=== PATIENT | female | born 1960 | race Caucasian/White ===

== ENCOUNTER 2022-03-10 12:43 | Emergency (ER) | payer MEDICARE, SELFPAY ==
[2022-03-10 13:06] VITALS: BP 83/59; PULSE 102; RESP 17; TEMP 36.5; O2SAT 100; BMI 27.3
--- NOTE | 2022-03-10 13:21 | XRR_ITS ---
PROCEDURE INFORMATION: Exam: XR Left Hip Exam date and time: 03/10/2022 1:32 PM Age: 62 years old Clinical indication: Fall with blunt trauma involving the left hip. History of thyroid cancer. TECHNIQUE: Imaging protocol: XR Left hip. Views: 2 or 3 views hip with pelvis when performed. COMPARISON: No relevant prior studies available. FINDINGS: Bones/joints: No fracture, dislocation or subluxation. No periosteal reaction or supsicious bone lesion. Very mild osteoarthritis involving the left hip. Soft tissues: Soft tissue swelling noted lateral to the left hip which could reflect hematoma or edema. Intraperitoneal space: A surgical clip is seen in the right pelvis. XR/XR hip LT 2-3V wo/w pel* [id number] IMPRESSION: 1. Soft tissue swelling noted lateral to the left hip which could reflect hematoma or edema. 2. No acute fracture is seen. 3. Very mild osteoarthritis.
--- NOTE | 2022-03-10 13:46 | W.ED.FALL ---
Documented by User: LORENE Lennon 03/10/22 16:46 HPI - Fall General: Chief Complaint: Fall Stated Complaint: Fell, left Hip injury Time Seen by Provider: 03/10/22 13:21 Source: patient and family Mode of arrival: wheelchair Limitations: no limitations History of Present Illness: Patient is a nice 62-year-old female presents to ED today along with her daughter for evaluation of a left hip injury. Patient tells me earlier today she was getting into a pair of pants when she accidentally tripped and fell and landed onto her left hip. States she immediately began noticing bruising and swelling to the lateral aspect of the hip. Patient has remained ambulatory on the extremity without difficulty. She denies any other injury sustained during her fall. Patient is not on anticoagulation. MD complaint: fall Onset (ago): hour(s) Fall from: standing Fall witnessed: no Place fall occurred: home Loss of consciousness: None Prolonged down time: no Symptoms prior to fall: none Context: tripped/slipped Location of injury - extremities: Left: thigh Associated symptoms-after fall: Reports no associated symptoms; Denies abdominal pain, chest pain, headache(s) or neck pain Review of Systems Const: Denies: fever(s), chills, body aches, fatigue or malaise Card: Denies: chest pain Resp: Denies: dyspnea GI: Denies: abdominal pain : Denies: flank pain Musc: Reports: joint pain (L hip) and joint swelling (L hip); Denies: neck pain, back pain, extremity pain or extremity swelling Neuro: Denies: headache(s), numbness in extremities, weakness in extremities or sensory changes Physical Exam Const: COMMON NORMALS: no acute distress, average body habitus, patient oriented x3, no limitations, alert and well nourished GENERAL APPEARANCE: cooperative ORIENTATION/CONSCIOUSNESS: Yes awake, Yes oriented to person, Yes oriented to place and Yes oriented to time HENMT: COMMON NORMALS: normocephalic and atraumatic HEAD & SCALP: normal to inspection, normocephalic and atraumatic FACE & SINUS: normal facial exam Neck/C-Spine: COMMON NORMALS: full ROM CERVICAL SPINE: No pain with cervical ROM, No Cervical spine tenderness, No step off deformity and No Paracervical muscle tenderness Chest: COMMONS NORMALS: normal inspection of the chest and normal palpation of entire chest wall Resp: COMMON NORMALS: normal respiratory effort and clear to auscultation bilaterally AUSCULTATION: clear to auscultation bilaterally Cardio: COMMON NORMALS: regular rate and regular rhythm RATE: regular rate RHYTHM: regular rhythm GI: COMMON NORMALS: non-tender INSPECTION: No abdominal wall ecchymosis Back/Pelvis: COMMON NORMALS: thoracic and lumbar spine normal to inspection, no thoracic nor lumbar tenderness and thoraco-lumbar ROM normal Extremity: COMMON NORMALS: full ROM, capillary refill normal, no calf tenderness and no pedal edema GENERAL: Yes normal exam except as noted LEFT LOWER EXTREMITY: Yes hip joint (full ROM of hip joint; lateral hematoma present) Left hip: Yes neurovascular exam (normal) EXTREMITY IMAGE (FRONT): 1. large lateral hematoma present Neuro: DOMINGO COMA SCALE: document GCS findings [place] coma scale eye opening: Spontaneous [place] coma scale verbal response: Orientated [place] coma scale motor response: Obey commands Domingo coma scale total score: 15 COMMON NORMALS: patient oriented x3, moves all extremities, no focal motor deficits, no sensory deficits noted and gait normal SENSORIUM/ORIENTATION: Yes alert, Yes oriented to person, Yes oriented to place and Yes oriented to time Skin: NARRATIVE SKIN EXAM: see extremity for pertinent skin findings Course Vital Signs: Vital signs: Vital Signs Temperature 97.7 F 03/10/22 13:06 Pulse Rate 108 H 03/10/22 15:19 Respiratory Rate 16 03/10/22 15:19 Blood Pressure 101/64 03/10/22 16:19 Pulse Oximetry 98 03/10/22 15:19 MDM - Fall Medical Decision Making Patient is a 62-year-old female here following a trip and fall onto her left hip. XR of the hip is negative for acute fracture. She does have a large lateral hip/thigh hematoma present. She was hypotensive upon arrival. Patient states sometimes her blood pressure can run low. He is not complaining of feeling lightheaded or dizzy or presyncopal. Upon my reassessment blood pressure is 100s/60s which she states is about normal for her. H/H normal on her CBC. She was given 1L fluids. At this time recommend ice, elevation and compression at home. Strict return to ED precautions given regarding lightheadedness, dizziness, presyncopal/syncopal episodes. Patient and her daughter verbalized understanding. Lab Data : 03/10/22 14:53 03/10/22 14:53 Radiology Impressions Hip/Pelvis X-Ray 03/10/22 13:21 IMPRESSION: 1. Soft tissue swelling noted lateral to the left hip which could reflect hematoma or edema. 2. No acute fracture is seen. 3. Very mild osteoarthritis. Laboratory Results WBC 12.7 10^3/uL (4.0-10.0) H 03/10/22 14:53 RBC 4.33 10^6/uL (4.1-5.3) 03/10/22 14:53 Hgb 12.9 g/dL (11.5-15.3) 03/10/22 14:53 Hct 39.2 % (37.0-47.0) 03/10/22 14:53 MCV 90.5 fl (81-99) 03/10/22 14:53 MCH 29.8 pg (28.0-34.0) 03/10/22 14:53 MCHC 32.9 g/dL (30.0-36.0) 03/10/22 14:53 RDW 12.7 % (12.1-15.1) 03/10/22 14:53 Plt Count 244 10^3/cmm (130-400) 03/10/22 14:53 MPV 10.5 fL (7.4-10.4) H 03/10/22 14:53 Neut % (Auto) 70.4 % 03/10/22 14:53 Lymph % (Auto) 18.5 % 03/10/22 14:53 [place] % (Auto) 8.0 % 03/10/22 14:53 Eos % (Auto) 1.5 % 03/10/22 14:53 Baso % (Auto) 0.9 % 03/10/22 14:53 Neut # (Auto) 8.97 10^3/uL (1.8-7.7) H 03/10/22 14:53 Lymph # (Auto) 2.4 10^3/uL (0.8-4.8) 03/10/22 14:53 [place] # (Auto) 1.0 10^3/uL (0.2-0.9) H 03/10/22 14:53 Eos # (Auto) 0.2 10^3/uL (0.0-0.8) 03/10/22 14:53 Baso # (Auto) 0.1 10^3/uL (0.0-0.1) 03/10/22 14:53 Nucleated RBC % (auto) 0 % 03/10/22 14:53 Nucleated RBCs # 0.0 /100WBC 03/10/22 14:53 Sodium 131 mmol/L (136-145) L 03/10/22 14:53 Potassium 4.4 mmol/L (3.5-5.1) 03/10/22 14:53 Chloride 100 mmol/L (98-107) 03/10/22 14:53 Carbon Dioxide 22 mmol/L (22-29) 03/10/22 14:53 Anion Gap 13.4 (5-19) 03/10/22 14:53 BUN 14 mg/dL (8-23) 03/10/22 14:53 Creatinine 1.1 mg/dL (0.5-0.9) H 03/10/22 14:53 GFR Calculation 50.0 mL/min (90-130) L 03/10/22 14:53 Glucose 95 mg/dL (65-115) 03/10/22 14:53 Calculated Osmolality 272 mOsm/kg (285-295) L 03/10/22 14:53 Calcium 8.6 mg/dL (8.5-10.5) 03/10/22 14:53 Total Bilirubin 0.3 mg/dL (0.15-1.2) 03/10/22 14:53 AST 22 U/L (0-32) 03/10/22 14:53 ALT 19 U/L (0-33) 03/10/22 14:53 Alkaline Phosphatase 85 IU/L (35-105) 03/10/22 14:53 Total Protein 6.3 g/dL (6.6-8.7) L 03/10/22 14:53 Albumin 3.6 g/dL (3.5-5.2) 03/10/22 14:53 Globulin 2.7 g/dL (1.3-4.6) 03/10/22 14:53 Discharge Plan Discharge Patient Disposition: Home Clinical Impression: Traumatic hematoma of left thigh Qualifiers: Encounter type: initial encounter Qualified Code(s): S70.12XA - Contusion of left thigh, initial encounter Condition: Stable Prescriptions: New tramadol 50 mg tablet 50 mg PO Q6H PRN (Reason: pain) Qty: 10 0RF No Action hydrocodone-acetaminophen 5-325 mg tablet 1 tab PO Q8H PRN (Reason: pain) Qty: 7 0RF Discharge Orders: Discharge ED (Routine); Ordered 03/10/22 Ordered By: Evi Logan Patient Instructions: Contusion in Adults (ED), Hematoma (ED) Activity Restrictions/Additional Instructions: As we discussed you may apply ice to the hematoma for 15-20 minutes every other hour. You need to return to the emergency department for worsening swelling or bruising, lightheadedness, dizziness, passing out episodes, or any other concerns you may have. Coding Level of Care Code ED Historical Archeologist for Chg Fwd Exam Comprehensive Documented by User: Armando Alonso DO 03/15/22 09:55 HPI - Fall General: Chief Complaint: Fall Stated Complaint: Fell, left Hip injury Time Seen by Provider: 03/10/22 13:21 Physical Exam Extremity: EXTREMITY IMAGE (FRONT): 1. large lateral hematoma present Neuro: DOMINGO COMA SCALE: document GCS findings [place] coma scale total score: 15 Course Vital Signs: Vital signs: Vital Signs Temperature 97.7 F 03/10/22 13:06 Pulse Rate 108 H 03/10/22 15:19 Respiratory Rate 16 03/10/22 15:19 Blood Pressure 101/64 03/10/22 16:19 Pulse Oximetry 98 03/10/22 15:19 MDM - Fall Medical Decision Making Patient is a 62-year-old female here following a trip and fall onto her left hip. XR of the hip is negative for acute fracture. She does have a large lateral hip/thigh hematoma present. She was hypotensive upon arrival. Patient states sometimes her blood pressure can run low. He is not complaining of feeling lightheaded or dizzy or presyncopal. Upon my reassessment blood pressure is 100s/60s which she states is about normal for her. H/H normal on her CBC. She was given 1L fluids. At this time recommend ice, elevation and compression at home. Strict return to ED pr ecautions given regarding lightheadedness, dizziness, presyncopal/syncopal episodes. Patient and her daughter verbalized understanding. Chart reviewed and patient discussed with midlevel. Agree with assessment and plan. Lab Data : 03/10/22 14:53 03/10/22 14:53 Radiology Impressions Hip/Pelvis X-Ray 03/10/22 13:21 IMPRESSION: 1. Soft tissue swelling noted lateral to the left hip which could reflect hematoma or edema. 2. No acute fracture is seen. 3. Very mild osteoarthritis. Laboratory Results WBC 12.7 10^3/uL (4.0-10.0) H 03/10/22 14:53 RBC 4.33 10^6/uL (4.1-5.3) 03/10/22 14:53 Hgb 12.9 g/dL (11.5-15.3) 03/10/22 14:53 Hct 39.2 % (37.0-47.0) 03/10/22 14:53 MCV 90.5 fl (81-99) 03/10/22 14:53 MCH 29.8 pg (28.0-34.0) 03/10/22 14:53 MCHC 32.9 g/dL (30.0-36.0) 03/10/22 14:53 RDW 12.7 % (12.1-15.1) 03/10/22 14:53 Plt Count 244 10^3/cmm (130-400) 03/10/22 14:53 MPV 10.5 fL (7.4-10.4) H 03/10/22 14:53 Neut % (Auto) 70.4 % 03/10/22 14:53 Lymph % (Auto) 18.5 % 03/10/22 14:53 [place] % (Auto) 8.0 % 03/10/22 14:53 Eos % (Auto) 1.5 % 03/10/22 14:53 Baso % (Auto) 0.9 % 03/10/22 14:53 Neut # (Auto) 8.97 10^3/uL (1.8-7.7) H 03/10/22 14:53 Lymph # (Auto) 2.4 10^3/uL (0.8-4.8) 03/10/22 14:53 [place] # (Auto) 1.0 10^3/uL (0.2-0.9) H 03/10/22 14:53 Eos # (Auto) 0.2 10^3/uL (0.0-0.8) 03/10/22 14:53 Baso # (Auto) 0.1 10^3/uL (0.0-0.1) 03/10/22 14:53 Nucleated RBC % (auto) 0 % 03/10/22 14:53 Nucleated RBCs # 0.0 /100WBC 03/10/22 14:53 Sodium 131 mmol/L (136-145) L 03/10/22 14:53 Potassium 4.4 mmol/L (3.5-5.1) 03/10/22 14:53 Chloride 100 mmol/L (98-107) 03/10/22 14:53 Carbon Dioxide 22 mmol/L (22-29) 03/10/22 14:53 Anion Gap 13.4 (5-19) 03/10/22 14:53 BUN 14 mg/dL (8-23) 03/10/22 14:53 Creatinine 1.1 mg/dL (0.5-0.9) H 03/10/22 14:53 GFR Calculation 50.0 mL/min (90-130) L 03/10/22 14:53 Glucose 95 mg/dL (65-115) 03/10/22 14:53 Calculated Osmolality 272 mOsm/kg (285-295) L 03/10/22 14:53 Calcium 8.6 mg/dL (8.5-10.5) 03/10/22 14:53 Total Bilirubin 0.3 mg/dL (0.15-1.2) 03/10/22 14:53 AST 22 U/L (0-32) 03/10/22 14:53 ALT 19 U/L (0-33) 03/10/22 14:53 Alkaline Phosphatase 85 IU/L (35-105) 03/10/22 14:53 Total Protein 6.3 g/dL (6.6-8.7) L 03/10/22 14:53 Albumin 3.6 g/dL (3.5-5.2) 03/10/22 14:53 Globulin 2.7 g/dL (1.3-4.6) 03/10/22 14:53 Discharge Plan Discharge Patient Disposition: Home Clinical Impression: Traumatic hematoma of left thigh Qualifiers: Encounter type: initial encounter Qualified Code(s): S70.12XA - Contusion of left thigh, initial encounter Condition: Stable Prescriptions: New tramadol 50 mg tablet 50 mg PO Q6H PRN (Reason: pain) Qty: 10 0RF No Action hydrocodone-acetaminophen 5-325 mg tablet 1 tab PO Q8H PRN (Reason: pain) Qty: 7 0RF Discharge Orders: Discharge ED (Routine); Ordered 03/10/22 Ordered By: Evi Logan Patient Instructions: Contusion in Adults (ED), Hematoma (ED) Activity Restrictions/Additional Instructions: As we discussed you may apply ice to the hematoma for 15-20 minutes every other hour. You need to return to the emergency department for worsening swelling or bruising, lightheadedness, dizziness, passing out episodes, or any other concerns you may have. Coding Level of Care Code ED Historical Archeologist for Supriya Fwd Exam Comprehensive
[2022-03-10 14:28] VITALS: BP 79/55; PULSE 114; RESP 16; O2SAT 98
[2022-03-10] MEDS: sodium chloride 0.9% 1,000 ML 999 ML IV (14:45)
[2022-03-10 15:19] VITALS: BP 85/58; PULSE 108; RESP 16; O2SAT 98
[2022-03-10 15:19] LABS: Basophils # 0.1 10^3/uL (0.0-0.1); Basophils % 0.9 %; Eosinophils # 0.2 10^3/uL (0.0-0.8); Eosinophils % 1.5 %; Hematocrit 39.2 % (37.0-47.0); Hemoglobin 12.9 g/dL (11.5-15.3); Lymphocytes # 2.4 10^3/uL (0.8-4.8); Lymphocytes % 18.5 %; Mean Corpuscular HGB Conc 32.9 g/dL (30.0-36.0); Mean Corpuscular Hemoglobin 29.8 pg (28.0-34.0); Mean Corpuscular Volume 90.5 fl (81-99); Mean Platelet Volume 10.5 fL (7.4-10.4); Neutrophils # 8.97 10^3/uL (1.8-7.7); Neutrophils % 70.4 %; Nucleated Red Blood Cells % 0 %; Platelet Count 244 10^3/cmm (130-400); Red Blood Count 4.33 10^6/uL (4.1-5.3); Red Cell Distribution Width 12.7 % (12.1-15.1); White Blood Count 12.7 10^3/uL (4.0-10.0)
[2022-03-10 15:30] LABS: Alanine Aminotransferase 19 U/L (0-33); Albumin Level 3.6 g/dL (3.5-5.2); Alkaline Phosphatase 85 IU/L (35-105); Anion Gap 13.4 (5-19); Aspartate Amino Transferase 22 U/L (0-32); Blood Urea Nitrogen 14 mg/dL (8-23); Calcium 8.6 mg/dL (8.5-10.5); Carbon Dioxide 22 mmol/L (22-29); Chloride 100 mmol/L (98-107); Globulin 2.7 g/dL (1.3-4.6); Glucose 95 mg/dL (65-115); Osmolality Calculated 272 mOsm/kg (285-295); Potassium 4.4 mmol/L (3.5-5.1); Sodium 131 mmol/L (136-145); Total Bilirubin 0.3 mg/dL (0.15-1.2); Total Protein 6.3 g/dL (6.6-8.7)
[2022-03-10 16:19] VITALS: BP 101/64
== END 2022-03-10 16:27 | disposition home or self-care (01) ==
PROVIDERS: Emergency Provider Physician Assistant
DX: S70.12XA Contusion of left thigh, initial encounter (principal); W01.0XXA Fall on same level from slipping, tripping and stumbling without subsequent striking against object, initial encounter
CPT/HCPCS: 73502; 80053; 85025; 96360; 99283; J7030

== ENCOUNTER 2022-03-11 21:15 | Emergency (ER) | payer MEDICARE, SELFPAY ==
--- NOTE | 2022-03-11 21:38 | XRR_ITS ---
PROCEDURE INFORMATION: Exam: XR Left Hip Exam date and time: 03/11/2022 10:27 PM Age: 62 years old Clinical indication: Hip pain; Left hip; Additional info: Injury TECHNIQUE: Imaging protocol: XR Left hip. Views: 2 or 3 views hip with pelvis when performed. COMPARISON: CR XR hip LT 2-3V wo/w pel* [id number] 03/10/2022 1:32 PM FINDINGS: Bones/joints: Mild left hip osteoarthritis. Soft tissues: Soft tissue swelling over the lateral aspect of the left hip again seen. XR/XR hip LT 2-3V wo/w pel* [id number] IMPRESSION: 1. No acute findings. 2. Mild left hip osteoarthritis. 3. Soft tissue swelling over the lateral aspect of the left hip again seen.
[2022-03-11 22:43] VITALS: BP 115/70; PULSE 95; RESP 18; TEMP 36.8; O2SAT 99
--- NOTE | 2022-03-11 23:53 | ED_ITS ---
HPI - Fall General: Chief Complaint: Fall Stated Complaint: L hip pain Time Seen by Provider: 03/11/22 23:52 History of Present Illness: 62-year-old female comes in today for bruise to the left hip. Patient reports increased pain and difficulty with walking with the left hip. Patient was evaluated yesterday and no fracture was noted on exam. Patient is polypharmacy. Patient shows left with multiple medications. Patient does have a hip history of hypertension, mental health disorder, GERD. Associated symptoms-after fall: Denies chest pain Review of Systems General: Reports: 10 or more systems reviewed and unremarkable except in HPI and below Const: Denies: fever(s) Card: Denies: chest pain Resp: Denies: dyspnea Musc: Reports: extremity pain Skin/Breast: Denies: rash Physical Exam Const: COMMON NORMALS: alert HENMT: COMMON NORMALS: normocephalic HEAD & SCALP: normocephalic Neck/C-Spine: COMMON NORMALS: full ROM Resp: COMMON NORMALS: normal respiratory effort Cardio: COMMON NORMALS: regular rate RATE: regular rate Back/Pelvis: THORACIC SPINE/UPPER BACK: No thoracic spinal tenderness LUMBAR SPINE/LOWER BACK: No lumbar spinal tenderness Extremity: LEFT LOWER EXTREMITY: Yes hip joint (Large hematoma to the lateral hip.) Neuro: SENSORIUM/ORIENTATION: Yes alert Course Vital Signs: Vital signs: Vital Signs Temperature 98.3 F 03/11/22 22:43 Pulse Rate 87 03/12/22 00:15 Respiratory Rate 20 H 03/12/22 00:15 Blood Pressure 107/63 03/12/22 00:15 Pulse Oximetry 97 03/12/22 00:15 MDM - Fall Medical Decision Making Patient comes in for continued pain to the left hip. On exam patient has good range of motion of the hip. Patient does have a large hematoma to the left hip. Tenderness is noted on palpation. Distal pulses sensation patient is intact. Vital signs are normal. Differential diagnosis includes but not limited to fracture, sprain, contusion. X-ray of the hip was negative for any fracture or dislocation. Reviewed exam with patient with recommendations for treatment and follow-up. They reported understanding Lab Data Radiology Impressions Hip/Pelvis X-Ray 03/11/22 21:38 IMPRESSION: 1. No acute findings. 2. Mild left hip osteoarthritis. 3. Soft tissue swelling over the lateral aspect of the left hip again seen. Discharge Plan Discharge Patient Disposition: Home Clinical Impression: Traumatic hematoma of left thigh Qualifiers: Encounter type: initial encounter Qualified Code(s): S70.12XA - Contusion of left thigh, initial encounter Condition: Stable Prescriptions: New hydrocodone-acetaminophen 5-325 mg tablet 1 tab PO Q8H PRN (Reason: pain) Qty: 7 0RF No Action tramadol 50 mg tablet 50 mg PO Q6H PRN (Reason: pain) Qty: 10 0RF Discharge Orders: Discharge ED (Routine); Ordered 03/12/22 Ordered By: Jeramie Nguyễn Discharge Diet: Usual diet Discharge Activity: Increase activity as tolerated Patient Instructions: Contusion in Adults (ED) Activity Restrictions/Additional Instructions: Activity as tolerated. Use ice or heat to the area for comfort. Drink plenty of water with medication. Use acetaminophen and diclofenac for pain. Use hydrocodone for severe pain. Follow-up with primary care for further instruction. Return to ER for new concerns. Coding Level of Care Code ED Social Worker Clinical for Supriya Durand
[2022-03-12] MEDS: HYDROcodone-acetaminophen 5-325 mg Tablet 1 TAB PO (00:12)
[2022-03-12 00:15] VITALS: BP 107/63; PULSE 87; RESP 20; O2SAT 97
== END 2022-03-12 00:17 | disposition home or self-care (01) ==
PROVIDERS: Emergency Provider Nurse Practitioner Family
DX: S70.02XA Contusion of left hip, initial encounter (principal); W19.XXXA Unspecified fall, initial encounter; M25.552 Pain in left hip
CPT/HCPCS: 73502; 99283

== ENCOUNTER 2022-12-01 10:16 | Emergency (ER) | payer MEDICARE, SELFPAY ==
[2022-12-01 10:18] VITALS: BP 160/85; PULSE 64; RESP 18; TEMP 37.1; O2SAT 97; BMI 26.6
--- NOTE | 2022-12-01 10:38 | W.ED.ABDPA2 ---
HPI - Abdominal Pain General: Chief Complaint: Abdominal Pain Stated Complaint: stomach pain Time Seen by Provider: 12/01/22 10:26 History of Present Illness: Patient is a 62-year-old female comes the ED with abdominal pain. Symptoms have been going on now for couple months. Pain is rated an 8 out of 10. It is located in the epigastric region of the stomach. She describes it as a burning type pain. Eating does not worsen the symptoms. She has a history of constipation and has bowel movements every other day. Denies any fevers, chills, vomiting, change in bladder or bowels. Associated Symptoms: Reports nausea; Denies chills, constipation, diarrhea, dysuria, fever(s), hematochezia, hematuria and vomiting Review of Systems Const: Denies: fever(s), chills or fatigue Eyes: Denies: change in vision or eye discomfort ENMT: Denies: throat pain, odynophagia, nasal discharge or nasal congestion Card: Denies: chest pain, palpitations, edema, swelling of feet/ankles, dyspnea on exertion or orthopnea Resp: Denies: dyspnea, productive cough or non-productive cough GI: Reports: abdominal pain (epigastric) and nausea; Denies: vomiting, diarrhea, constipation or hematochezia : Denies: flank pain, dysuria or hematuria Musc: Denies: neck pain, back pain or extremity swelling Skin/Breast: Denies: rash or new lesions Neuro: Denies: headache(s), numbness in extremities or weakness in extremities PFS ED PFSH: Medical History No pertinent family history No pertinent past medical history Physical Exam Const: COMMON NORMALS: no acute distress, patient oriented x3 and alert GENERAL APPEARANCE: cooperative and comfortable HENMT: COMMON NORMALS: normocephalic HEAD & SCALP: normocephalic MOUTH: Normal oral and palatal mucosa present THROAT: posterior oropharynx normal and uvula midline Neck/C-Spine: COMMON NORMALS: supple GENERAL: Yes normal visual inspection Resp: COMMON NORMALS: normal respiratory effort, No retractions, No use of accessory muscles and clear to auscultation bilaterally AUSCULTATION: clear to auscultation bilaterally Cardio: COMMON NORMALS: regular rate, regular rhythm, S1 normal heart sound present, S2 normal heart sound present, No gallops present (Cardio), No clicks present (Cardio), No murmurs present (Cardio) and Peripheral pulses 2+ throughout RATE: regular rate RHYTHM: regular rhythm HEART SOUNDS: S1 normal heart sound present and S2 normal heart sound present PERIPHERAL PULSES: Peripheral pulses 2+ throughout GI: COMMON NORMALS: Normal to inspection, nondistended, normoactive bowel sounds present, Soft to palpation and no masses PALPATION: Yes Soft to palpation and Yes Tenderness to palpation present (GI) (Epigastric) : COMMON NORMALS: Yes no CVA tenderness BLADDER/KIDNEY EXAM: Yes no CVA tenderness Back/Pelvis: COMMON NORMALS: no CVA tenderness Extremity: COMMON NORMALS: normal to inspection Neuro: COMMON NORMALS: patient oriented x3 SENSORIUM/ORIENTATION: Yes alert GAIT: Yes Normal gait present Skin: GENERAL SKIN EXAM: dry skin Course Vital Signs: Vital signs: Vital Signs Temperature 98.7 F 12/01/22 10:18 Pulse Rate 55 L 12/01/22 13:47 Respiratory Rate 16 12/01/22 13:47 Blood Pressure 142/82 12/01/22 12:09 Pulse Oximetry 93 12/01/22 13:47 Oxygen Delivery Me thod 12/01/22 12:09 MDM - Abdominal Pain Medical Decision Making Patient is a 62-year-old female comes the ED with abdominal pain. Symptoms have been going on now for couple months. Pain is rated an 8 out of 10. It is located in the epigastric region of the stomach. She describes it as a burning type pain. Eating does not worsen the symptoms. She has a history of constipation and has bowel movements every other day. Denies any fevers, chills, vomiting, change in bladder or bowels. Vitals are stable. Labs are unremarkable. CT of abdomen pelvis shows no acute findings. Patient was given dose of GI cocktail and her symptoms improved. She was stable for discharge home and diagnosed with gastritis. She was sent home with a prescription for some Carafate and told to continue taking her previously prescribed pantoprazole. Strict return to ED precautions given. Follow-up with PCP within the next 3 to 5 days for reevaluation. Patient understood and agreed with plan. Lab Data I reviewed the patient's lab results. 12/01/22 10:56 12/01/22 10:56 Labs/Radiology: Radiology Impressions Abdomen/Pelvis CT 12/01/22 10:40 IMPRESSION: 1. No GI tract obstruction. 2. Poorly visualized RIGHT portal vein. May be due to phase of IV contrast injection. For further evaluation ultrasound of the RIGHT portal vein can be obtained. The main portal vein is normal. 3. Atherosclerosis aorta. 4. The appendix is not visualized but there are no secondary findings of appendicitis. 5. Prior hysterectomy. 6. No ascites. Laboratory Results WBC 6.4 10^3/uL (4.0-10.0) 12/01/22 10:56 RBC 5.18 10^6/uL (4.1-5.3) 12/01/22 10:56 Hgb 15.0 g/dL (11.5-15.3) 12/01/22 10:56 Hct 45.6 % (37.0-47.0) 12/01/22 10:56 MCV 88.0 fl (81-99) 12/01/22 10:56 MCH 29.0 pg (28.0-34.0) 12/01/22 10:56 MCHC 32.9 g/dL (30.0-36.0) 12/01/22 10:56 RDW 12.7 % (12.1-15.1) 12/01/22 10:56 Plt Count 210 10^3/cmm (130-400) 12/01/22 10:56 MPV 10.8 fL (7.4-10.4) H 12/01/22 10:56 Neut % (Auto) 67.4 % 12/01/22 10:56 Lymph % (Auto) 24.1 % 12/01/22 10:56 [place] % (Auto) 5.6 % 12/01/22 10:56 Eos % (Auto) 1.6 % 12/01/22 10:56 Baso % (Auto) 1.1 % 12/01/22 10:56 Neut # (Auto) 4.35 10^3/uL (1.8-7.7) 12/01/22 10:56 Lymph # (Auto) 1.6 10^3/uL (0.8-4.8) 12/01/22 10:56 [place] # (Auto) 0.4 10^3/uL (0.2-0.9) 12/01/22 10:56 Eos # (Auto) 0.1 10^3/uL (0.0-0.8) 12/01/22 10:56 Baso # (Auto) 0.1 10^3/uL (0.0-0.1) 12/01/22 10:56 Nucleated RBC % (auto) 0 % 12/01/22 10:56 Nucleated RBCs # 0.0 /100WBC 12/01/22 10:56 Sodium 138 mmol/L (136-145) 12/01/22 10:56 Potassium 4.3 mmol/L (3.5-5.1) 12/01/22 10:56 Chloride 102 mmol/L (98-107) 12/01/22 10:56 Carbon Dioxide 28 mmol/L (22-29) 12/01/22 10:56 Anion Gap 12.3 (5-19) 12/01/22 10:56 BUN 10 mg/dL (8-23) 12/01/22 10:56 Creatinine 1.1 mg/dL (0.5-0.9) H 12/01/22 10:56 GFR Calculation 50.0 mL/min (90-130) L 12/01/22 10:56 Glucose 108 mg/dL (65-115) 12/01/22 10:56 Calculated Osmolality 286 mOsm/kg (285-295) 12/01/22 10:56 Calcium 8.7 mg/dL (8.5-10.5) 12/01/22 10:56 Total Bilirubin 0.5 mg/dL (0.15-1.2) 12/01/22 10:56 AST 14 U/L (0-32) 12/01/22 10:56 ALT 10 U/L (0-33) 12/01/22 10:56 Alkaline Phosphatase 80 U/L (35-105) 12/01/22 10:56 Total Protein 6.7 g/dL (6.6-8.7) 12/01/22 10:56 Albumin 4.0 g/dL (3.5-5.2) 12/01/22 10:56 Globulin 2.7 g/dL (1.3-4.6) 12/01/22 10:56 Lipase 36 U/L (13-60) 12/01/22 10:56 Urine Color Light yellow (Yellow) 12/01/22 12:05 Urine Appearance Clear (CLEAR) 12/01/22 12:05 Urine pH 7 (5-7) 12/01/22 12:05 Ur Specific [place] 1.005 (1.005-1.030) 12/01/22 12:05 Urine Protein Neg (Negative) 12/01/22 12:05 Urine Glucose (UA) Norm (Normal) 12/01/22 12:05 Urine Ketones Negative (Negative) 12/01/22 12:05 Urine Blood Neg (Negative) 12/01/22 12:05 Urine Nitrate Negative (Negative) 12/01/22 12:05 Urine Bilirubin Neg (Negative) 12/01/22 12:05 Urine Urobilinogen Neg mg/dL (Negative) 12/01/22 12:05 Ur Leukocyte Esterase Negative (Negative) 12/01/22 12:05 H. pylori IgG Antibody Negative (Negative) 12/01/22 10:56 Discharge Plan Discharge Patient Disposition: Home Clinical Impression: Gastritis Qualifiers: Gastritis type: unspecified gastritis Chronicity: acute Gastritis bleeding: without bleeding Qualified Code(s): K29.00 - Acute gastritis without bleeding Condition: Stable Prescriptions: New Carafate 1 gram tablet 1 g PO Q6H 28 Days Qty: 112 0RF No Action hydrocodone-acetaminophen 5-325 mg tablet 1 tab PO Q8H PRN (Reason: pain) Qty: 7 0RF tramadol 50 mg tablet 50 mg PO Q6H PRN (Reason: pain) Qty: 10 0RF Discharge Orders: Discharge ED (Routine); Ordered 12/01/22 Ordered By: Charles Ryder Discharge Diet: Regular Discharge Activity: Increase activity as tolerated Patient Instructions: Gastritis (ED) Activity Restrictions/Additional Instructions: Follow-up with medical provider as directed in the next 3 to 5 days for reevaluation. Take medications as prescribed. Return to the ER or your medical provider if condition worsens. Please read and understand discharge instructions. Thank you for choosing [facility] for your healthcare needs today. Please realize this is an emergency room and that we are providing you with a medical screening exam and this may not be complete and all inclusive of all the testing and or work up that you may need to determine your ailment or severity of your illness. It is very important that you follow up as instructed or that you return to the Emergency Department should you have concerns or if your condition changes or worsens in any way. Coding Level of Care Code ED Wireless Consultant for Chg Fwd Exam Comprehensive
--- NOTE | 2022-12-01 10:40 | CT_ITS ---
WS: [id number] CT ABDOMEN AND PELVIS WITH CONTRAST HISTORY: epigastric abd pain, nausea TECHNIQUE: Imaging performed of the abdomen and pelvis with IV contrast. Single phase imaging of the abdomen. Coronal and sagittal reformats are submitted. All CT scans at [facility] use at [address] one of these dose optimization techniques: automated exposure control; mA and/or kV adjustment per patient size (includes targeted exams where dose is matched to clinical indication); or iterative re construction. IV CONTRAST: Omnipaque 350; 95 mL IV. Oral contrast: No DLP: 587.84 mGy.cm COMPARISON: None available. Lower thorax: Lung bases are clear. Heart is normal size. Small hiatal hernia. Liver/biliary system: Normal size liver. Poorly visualized RIGHT portal vein. No mass. Gallbladder: Normal. No gallstones or wall thickening. No pericholecystic fluid. Pancreas: Normal size pancreas and pancreatic duct. No adjacent inflammation. Spleen: Normal size spleen. No mass or infarct. Adrenal glands: Mild thickening and hyperplasia of the RIGHT adrenal gland. There may be a very small subcentimeter adenoma on the RIGHT. LEFT is negative. Right kidney: Normal. Left kidney: Normal. Aorta: Mild atherosclerosis with no aneurysm. Lymphadenopathy: None. Free fluid: None. GI tract: Normally distended stomach. No small bowel obstruction. The appendix is not identified. The re are no inflammatory processes in the RIGHT lower quadrant. No wall thickening of the colon. No acu te inflammatory changes. Abdominal wall: Fat containing umbilical hernia. Pelvis: Prior hysterectomy. No free fluid or adenopathy. Urinary bladder is negative. Bones: L1 anterior wedging by 10%. No retropulsion. CT/CT abdomen pelvis w con* [id number] IMPRESSION: 1. No GI tract obstruction. 2. Poorly visualized RIGHT portal vein. May be due to phase of IV contrast inj ection. For further evaluation ultrasound of the RIGHT portal vein can be obtai vlad. The main portal vein is normal. 3. Atherosclerosis aorta. 4. The appendix is not visualized but there are no secondary findings of appen dicitis. 5. Prior hysterectomy. 6. No ascites.
[2022-12-01 10:55] VITALS: BP 132/86; PULSE 62; O2SAT 100
[2022-12-01] MEDS: sodium chloride 0.9% 1,000 ML 999 ML IV (11:05)
[2022-12-01 11:06] VITALS: RESP 19; O2SAT 98
[2022-12-01] MEDS: morphine 4 mg/mL SDV 1 mL IVP (11:06)
[2022-12-01] MEDS: ondansetron 2 mg/ML SDV 2 mL 4 MG IVP (11:06)
[2022-12-01 11:09] LABS: Basophils # 0.1 10^3/uL (0.0-0.1); Basophils % 1.1 %; Eosinophils # 0.1 10^3/uL (0.0-0.8); Eosinophils % 1.6 %; Hematocrit 45.6 % (37.0-47.0); Lymphocytes # 1.6 10^3/uL (0.8-4.8); Lymphocytes % 24.1 %; Mean Corpuscular HGB Conc 32.9 g/dL (30.0-36.0); Mean Platelet Volume 10.8 fL (7.4-10.4); Monocytes # 0.4 10^3/uL (0.2-0.9); Monocytes % 5.6 %; Neutrophils # 4.35 10^3/uL (1.8-7.7); Neutrophils % 67.4 %; Nucleated Red Blood Cells % 0 %; Platelet Count 210 10^3/cmm (130-400); Red Blood Count 5.18 10^6/uL (4.1-5.3); Red Cell Distribution Width 12.7 % (12.1-15.1); White Blood Count 6.4 10^3/uL (4.0-10.0)
[2022-12-01 11:25] VITALS: BP 128/77
[2022-12-01 11:30] LABS: Alanine Aminotransferase 10 U/L (0-33); Alkaline Phosphatase 80 U/L (35-105); Anion Gap 12.3 (5-19); Aspartate Amino Transferase 14 U/L (0-32); Blood Urea Nitrogen 10 mg/dL (8-23); Calcium 8.7 mg/dL (8.5-10.5); Carbon Dioxide 28 mmol/L (22-29); Chloride 102 mmol/L (98-107); Globulin 2.7 g/dL (1.3-4.6); Glucose 108 mg/dL (65-115); Lipase 36 U/L (13-60); Osmolality Calculated 286 mOsm/kg (285-295); Potassium 4.3 mmol/L (3.5-5.1); Sodium 138 mmol/L (136-145); Total Bilirubin 0.5 mg/dL (0.15-1.2); Total Protein 6.7 g/dL (6.6-8.7)
[2022-12-01 11:35] LABS: H. Pylori IgG Antibody Negative (Negative)
[2022-12-01 12:09] VITALS: BP 142/82; PULSE 58; O2SAT 99
[2022-12-01 12:20] LABS: Add Urine Microscopic? NO; Charge for UA Resulting for Rev
[2022-12-01 12:23] LABS: Bilirubin Urine Neg (Negative); Blood Urine Neg (Negative); Glucose Urine UA Norm (Normal); Ketones Urine Negative (Negative); Leukocyte Esterase Urine Negative (Negative); Nitrate Urine Negative (Negative); Protein Urine Neg (Negative); Specific Gravity, Urine 1.005 (1.005-1.030); Urine Appearance Clear (CLEAR); Urine Color Light yellow (Yellow); Urobilinogen Urine Neg (Negative); pH Urine 7 (5-7)
[2022-12-01] MEDS: iohexol 350 mg/mL 500 mL Btl (per mL) IV (12:37)
[2022-12-01] MEDS: lidocaine 2% viscous 15 ML, aluminum-mag hydrox-simethicon 30 ML, sucralfate oral liq 1 GM PO (13:14)
[2022-12-01 13:47] VITALS: PULSE 55; RESP 16; O2SAT 93
== END 2022-12-01 13:48 | disposition home or self-care (01) ==
PROVIDERS: Emergency Provider Physician Assistant
DX: K29.00 Acute gastritis without bleeding (principal)
CPT/HCPCS: 74177; 80053; 81003; 83690; 85025; 86677; 96374; 96375; 99285; J2270; J2405; J7030; Q9967

== ENCOUNTER → 2022-12-20 16:07 | Outpatient (BNVA) | payer MEDICARE, SELFPAY | PROVIDERS: PCP Family Medicine; Visit Provider Family Medicine | DX: N18.30 Chronic kidney disease, stage 3 unspecified (principal); R79.89 Other specified abnormal findings of blood chemistry; E53.8 Deficiency of other specified B group vitamins; E78.5 Hyperlipidemia, unspecified; I69.311 Memory deficit following cerebral infarction; Z85.850 Personal history of malignant neoplasm of thyroid; E03.9 Hypothyroidism, unspecified; R25.2 Cramp and spasm; R29.898 Other symptoms and signs involving the musculoskeletal system | CPT/HCPCS: 80053; 80061; 82306; 82607; 83735; 84439; 84443; 84481; 85025 ==

== ENCOUNTER 2022-12-28 08:54 | Outpatient (RCR) | payer MEDICARE, SELFPAY | END 2022-12-28 23:59 | disposition home or self-care (01) | LOC: SOT 08:54 | PROVIDERS: PCP Family Medicine; Visit Provider Family Medicine | DX: R29.898 Other symptoms and signs involving the musculoskeletal system (principal) | CPT/HCPCS: 97166 ==

== ENCOUNTER 2022-12-29 06:00 | Outpatient (RCR) | payer MEDICARE, SELFPAY | END 2023-01-26 23:59 | disposition home or self-care (01) | LOC: SOT 06:00 | PROVIDERS: PCP Family Medicine; Visit Provider Family Medicine | DX: R29.898 Other symptoms and signs involving the musculoskeletal system (principal) | CPT/HCPCS: 97022; 97110 ==

== ENCOUNTER → 2023-01-10 11:49 | Outpatient (BNVA) | payer MEDICARE, MEDICAID, SELFPAY | PROVIDERS: PCP Family Medicine; Visit Provider Family Medicine | DX: R39.9 Unspecified symptoms and signs involving the genitourinary system (principal); N39.0 Urinary tract infection, site not specified | CPT/HCPCS: 81000; 87077; 87086; 87184 ==

== ENCOUNTER → 2023-01-21 10:50 | Outpatient (BNVA) | payer MEDICARE, MEDICAID, SELFPAY | PROVIDERS: PCP Family Medicine; Visit Provider Family Medicine | DX: N93.9 Abnormal uterine and vaginal bleeding, unspecified (principal); Z12.4 Encounter for screening for malignant neoplasm of cervix | CPT/HCPCS: 81000 ==

== ENCOUNTER 2023-01-27 08:56 | Outpatient (CLI) | payer MEDICARE, SELFPAY ==
--- NOTE | 2023-01-27 09:30 | MR_ITS ---
WS: [id number] MRI BRAIN WITHOUT CONTRAST HISTORY: dementia COMPARISON: None available. TECHNIQUE: Diffusion imaging, multiplanar T1, T2 and FLAIR imaging obtained. Moderate motion artifact. Patient was unable to remain still for this examination. No acute infarct or hemorrhage. Moderate small vessel ischemic type changes throughout the white [place] er. Moderate atrophy is symmetric bilaterally. There is mild ventricular dilatation on the basis of atrop hy. Extra-axial spaces are prominent due to atrophy. A low-attenuation well-circumscribed 6 mm mass near the RIGHT orbital apex. 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 Seen on the prior head CT from 2013. No inferior displacement of cerebellar tonsils. The sella turcica and pituitary gland are unremarkabl e. Dural venous sinuses and [place] demonstrate no abnormality on this unenhanced studies. Paranasal sinuses: Clear. Mastoid air cells: Normal. Calvarium and scalp: Intact. MR/MR head wo con* [id number] IMPRESSION: 1. Quality is degraded by motion. 2. Moderate atrophy and small vessel ischemic disease. 3. No acute hemorrhage or infarct. 4. Mild ventriculomegaly on the basis of atrophy.
== END 2023-01-27 08:57 | disposition home or self-care (01) ==
PROVIDERS: PCP Family Medicine; Visit Provider Family Medicine
DX: F03.90 Unspecified dementia, unspecified severity, without behavioral disturbance, psychotic disturbance, mood disturbance, and anxiety (principal); Z86.73 Personal history of transient ischemic attack (TIA), and cerebral infarction without residual deficits; I67.82 Cerebral ischemia; G31.9 Degenerative disease of nervous system, unspecified
CPT/HCPCS: 70551

== ENCOUNTER 2023-04-12 10:16 | Emergency (ER) | payer MEDICARE, SELFPAY ==
[2023-04-12 10:22] VITALS: BP 119/73; PULSE 69; RESP 18; TEMP 36.8; O2SAT 100; BMI 22.8
--- NOTE | 2023-04-12 10:36 | XRR_ITS ---
PROCEDURE INFORMATION: Exam: XR Right Hip Exam date and time: 04/12/2023 11:51 AM Age: 63 years old Clinical indication: Injury or trauma; Fall; Blunt trauma (contusions or hematomas); Right; Hip; Prior surgery; Surgery date: 6+ months; Surgery type: Partial hysterectomy. TECHNIQUE: Imaging protocol: Radiologic exam of the right hip. 3image(s) are provided. Views: 1 view hip with pelvis when performed. COMPARISON: CT abdomen pelvis w con* [id number] 12/01/2022 12:24 PM FINDINGS: Tubes, catheters and devices: There is a metallic clip at the right hemipelvis level. Bones/joints: Osseous alignment is maintained.No interval displaced fracture or dislocation is appreciated. There is some degeneration present with spurring of the acetabular rim and subcapital margins similar overall. There is some spurring with chronic appearing disc space narrowing at the lumbosacral junction predominantly. Symmetric appearance of the sacral arcuate lines and sacroiliac junctions are appreciated. Soft tissues: No radiopaque foreign body or subcutaneous emphysema is appreciated. XR/XR hip RT 2-3V wo/w pel* [id number] IMPRESSION: Osseous alignment is maintained with some chronic degeneration about the hips.No interval fracture or dislocation is appreciated.
--- NOTE | 2023-04-12 10:36 | ED_ITS ---
HPI - Fall General: Chief Complaint: Fall Stated Complaint: multiple falls, bruised hip Time Seen by Provider: 04/12/23 10:31 Source: patient and family Mode of arrival: ambulatory History of Present Illness: 63-year-old female presents emergency room complaining of right hip pain swelling a couple times in the middle of the hip she has still been able to walk on its been increasingly sore over. She had heme present she is not on any anticoagulants but does take aspirin daily. No other injuries. She states she frequently has falls has a gait disturbance usually uses a cane. The cane has become increasingly inadequate and they are trying to pursue getting a walker. They are also been looking at going to the group home. MD complaint: fall Onset (ago): day(s) Fall from: standing Fall witnessed: yes, by family Place fall occurred: home Loss of consciousness: None Prolonged down time: no Symptoms prior to fall: none Context: tripped/slipped Quality: sharp Associated symptoms-after fall: Denies abdominal pain, chest pain, confusion, difficulty walking, headache(s), hematuria, lightheadedness, neck pain, numbness, short of breath, vertigo or weakness Review of Systems Const: Denies: fever(s), chills, fatigue or malaise Card: Denies: chest pain, palpitations, irregular heart rhythm or lightheadedness Resp: Denies: dyspnea, productive cough or non-productive cough GI: Denies: abdominal pain : Denies: dysuria, urinary frequency, urinary urgency or hematuria Musc: Reports: joint pain (Right hip); Denies: neck pain or back pain Skin/Breast: Denies: rash or pruritus Neuro: Denies: headache(s), difficulty walking, vertigo or confusion PFSH ED PFSH: Medical History Acquired hypothyroidism Chronic headache CKD (chronic kidney disease) stage 3, GFR 30-59 ml/min Hiatal hernia History of thyroid cancer Psychiatric care Umbilical hernia Wedge compression fracture of L1 vertebra 10% anterior wedge Surgical History History of bunionectomy of both great toes History of hysterectomy for endometriosis, still has ovaries History of placement of ear tubes left History of release of tendon left ulnar nerve History of thyroidectomy Family History Mother CAD (coronary artery disease) Diabetes Father Diabetes Dementia Grandfather Cancer stomach Grandfather Cancer colon Daughter Hypertension Social History Smoking and tobacco status: former smoker Quit status (tobacco): has quit using tobacco Year quit tobacco: sep 2022 Former quit date comment: 100 pack year history - 2ppd x 50 years Alcohol intake: current Alcohol intake frequency: holidays/special occasions only Household members: family Marital status: / Number of children: 2 Number of grandchildren: 4 Current occupational status: disabled Agree to transfusion: Yes Physical Exam Const: GENERAL APPEARANCE: cooperative and comfortable ORIENTATION/CONSCIOUSNESS: Yes awake, Yes oriented to person, Yes oriented to place and Yes oriented to time HENMT: COMMON NORMALS: normocephalic, atraumatic and hearing grossly normal bilaterally HEAD & SCALP: normocephalic and atraumatic Resp: COMMON NORMALS: normal respiratory effort, No retractions, No use of accessory muscles and clear to auscultation bilaterally AUSCULTATION: clear to auscultation bilaterally Cardio: COMMON NORMALS: regular rate, regular rhythm and No murmurs present (Cardio) RATE: regular rate RHYTHM: regular rhythm GI: COMMON NORMALS: Soft to palpation and No hepatosplenomegaly present AUSCULTATION: Yes normoactive bowel sounds PALPATION: Yes Soft to palpation, No Tenderness to palpation present (GI), No Guarding due to palpation present (GI) and Yes No hepatosplenomegaly present : COMMON NORMALS: Yes no CVA tenderness BLADDER/KIDNEY EXAM: Yes no CVA tenderness Back/Pelvis: COMMON NORMALS: no CVA tenderness Extremity: COMMON NORMALS: normal to inspection, capillary refill normal, no clubbing, cyanosis or edema, no calf tenderness and no pedal edema Neuro: SENSORIUM/ORIENTATION: Yes oriented to person, Yes oriented to place and Yes oriented to time Skin: COMMON NORMALS: no rashes or lesions noted GENERAL SKIN EXAM: no rashes or lesions noted Course Vital Signs: Vital signs: Vital Signs Temperature 98.3 F 04/12/23 10:22 Pulse Rate 69 04/12/23 10:22 Respiratory Rate 18 04/12/23 10:22 Blood Pressure 119/73 04/12/23 10:22 Pulse Oximetry 100 04/12/23 10:22 Oxygen Delivery Me thod Room Air 04/12/23 10:22 MDM - Fall Medical Decision Making No acute fracture in the hip. On exam patient is suspected trochanteric bursitis start on anti-inflammatories and improving follow-up with primary care. Medical Records I reviewed the patient's medical records. Lab Data I reviewed the patient's lab results. 04/12/23 11:14 04/12/23 11:14 Radiology Impressions Hip/Pelvis X-Ray 04/12/23 10:36 IMPRESSION: Osseous alignment is maintained with some chronic degeneration about the hips.No interval fracture or dislocation is appreciated. Laboratory Results WBC 4.9 10^3/uL (4.0-10.0) 04/12/23 11:14 RBC 4.63 10^6/uL (4.1-5.3) 04/12/23 11:14 Hgb 13.5 g/dL (11.5-15.3) 04/12/23 11:14 Hct 42.5 % (37.0-47.0) 04/12/23 11:14 MCV 91.8 fl (81-99) 04/12/23 11:14 MCH 29.2 pg (28.0-34.0) 04/12/23 11:14 MCHC 31.8 g/dL (30.0-36.0) 04/12/23 11:14 RDW 13.4 % (12.1-15.1) 04/12/23 11:14 Plt Count 199 10^3/cmm (130-400) 04/12/23 11:14 MPV 10.1 fL (7.4-10.4) 04/12/23 11:14 Neut % (Auto) 67.0 % 04/12/23 11:14 Lymph % (Auto) 21.9 % 04/12/23 11:14 [place] % (Auto) 8.5 % 04/12/23 11:14 Eos % (Auto) 1.2 % 04/12/23 11:14 Baso % (Auto) 1.0 % 04/12/23 11:14 Neut # (Auto) 3.31 10^3/uL (1.8-7.7) 04/12/23 11:14 Lymph # (Auto) 1.1 10^3/uL (0.8-4.8) 04/12/23 11:14 [place] # (Auto) 0.4 10^3/uL (0.2-0.9) 04/12/23 11:14 Eos # (Auto) 0.1 10^3/uL (0.0-0.8) 04/12/23 11:14 Baso # (Auto) 0.1 10^3/uL (0.0-0.1) 04/12/23 11:14 Nucleated RBC % (auto) 0 % 04/12/23 11:14 Nucleated RBCs # 0.0 /100WBC 04/12/23 11:14 Sodium 138 mmol/L (136-145) 04/12/23 11:14 Potassium 3.5 mmol/L (3.5-5.1) 04/12/23 11:14 Chloride 104 mmol/L (98-107) 04/12/23 11:14 Carbon Dioxide 20 mmol/L (22-29) L 04/12/23 11:14 Anion Gap 17.5 (5-19) 04/12/23 11:14 BUN 12 mg/dL (8-23) 04/12/23 11:14 Creatinine 0.9 mg/dL (0.5-0.9) 04/12/23 11:14 GFR Calculation 62.8 mL/min (90-130) L 04/12/23 11:14 Glucose 95 mg/dL (65-115) 04/12/23 11:14 Calculated Osmolality 286 mOsm/kg (285-295) 04/12/23 11:14 Calcium 8.9 mg/dL (8.5-10.5) 04/12/23 11:14 Total Bilirubin 0.5 mg/dL (0.15-1.2) 04/12/23 11:14 AST 13 U/L (0-32) 04/12/23 11:14 ALT 9 U/L (0-33) 04/12/23 11:14 Alkaline Phosphatase 96 U/L (35-105) 04/12/23 11:14 Total Protein 6.7 g/dL (6.6-8.7) 04/12/23 11:14 Albumin 4.1 g/dL (3.5-5.2) 04/12/23 11:14 Globulin 2.6 g/dL (1.3-4.6) 04/12/23 11:14 Urine Color Yellow (Yellow) 04/12/23 11:35 Urine Appearance Sl hazy (CLEAR) A 04/12/23 11:35 Urine pH 6 (5-7) 04/12/23 11:35 Ur Specific [place] 1.030 (1.005-1.030) 04/12/23 11:35 Urine Protein Neg (Negative) 04/12/23 11:35 Urine Glucose (UA) Norm (Normal) 04/12/23 11:35 Urine Ketones 1+ (Negative) H 04/12/23 11:35 Urine Blood 2+ (Negative) H 04/12/23 11:35 Urine Nitrate Negative (Negative) 04/12/23 11:35 Urine Bilirubin Neg (Negative) 04/12/23 11:35 Urine Urobilinogen Norm mg/dL (Negative) 04/12/23 11:35 Ur Leukocyte Esterase Negative (Negative) 04/12/23 11:35 Urine RBC 0-4 /hpf (0-2) H 04/12/23 11:35 Urine WBC 0-4 /hpf (0-5) H 04/12/23 11:35 Ur Squamous Epith Cells 5-10 /hpf (0-5) H 04/12/23 11:35 Triple Phos Crystals 0-4 /hpf H 04/12/23 11:35 Amorphous Sediment Trace /hpf 04/12/23 11:35 Urine Bacteria 1+ /hpf (NONE) H 04/12/23 11:35 Urine Mucus 1+ /hpf 04/12/23 11:35 Discharge Plan Discharge Patient Disposition: Home Clinical Impression: Trochanteric bursitis of right hip Condition: Stable Prescriptions: New diclofenac sodium 75 mg tablet,delayed release (DR/EC) 75 mg PO Q12H PRN (Reason: pain) Qty: 20 0RF No Action lorazepam 0.5 mg tablet 0.5 mg PO TID trazodone 100 mg tablet 300 mg PO DAILY aripiprazole 5 mg tablet 5 mg PO DAILY aripiprazole 10 mg tablet 10 mg PO DAILY escitalopram oxalate 20 mg tablet 40 mg PO DAILY aspirin 81 mg tablet,delayed release (DR/EC) 81 mg PO DAILY potassium citrate 99 mg capsule PO (DME) bath chair See Rx Instructions .Route .MEDSUPPLY Qty: 1 0RF Rx Instructions: use while bathing. (DME) cane Device See Rx Instructions .Route Qty: 1 0RF Rx Instructions: four pronged cane donepezil 10 mg tablet 10 mg PO DAILY Qty: 90 0RF famotidine 40 mg tablet 40 mg PO BID Qty: 180 0RF oxybutynin chloride 10 mg tablet extended release 24hr 10 mg PO DAILY Qty: 90 0RF pravastatin 20 mg tablet 20 mg PO DAILY Qty: 90 0RF topiramate 50 mg capsule,extended release 24hr 50 mg PO DAILY Qty: 90 0RF levothyroxine [Euthyrox] 150 mcg tablet See Rx Instructions .ROUTE .COMPLEX Qty: 60 0RF Dose Instruction: Take 1 tablet by mouth once daily Rx Instructions: Take 1 tablet by mouth once daily Discharge Orders: Discharge ED (Routine); Ordered 04/12/23 Ordered By: Armando Alonso Referrals: Chyna Mccray MD [Primary Care Provider] - Patient Instructions: Hip Bursitis (ED), Opioid Safety, Pain Management Activity Restrictions/Additional Instructions: Use anti-inflammatories as needed if not improving follow-up with your doctor they can evaluate you further for possible steroid injection if needed. Coding Level of Care Code ED Customer Experience Analyst for Supriya Durand
[2023-04-12 11:20] LABS: Basophils # 0.1 10^3/uL (0.0-0.1); Eosinophils # 0.1 10^3/uL (0.0-0.8); Eosinophils % 1.2 %; Hematocrit 42.5 % (37.0-47.0); Hemoglobin 13.5 g/dL (11.5-15.3); Lymphocytes # 1.1 10^3/uL (0.8-4.8); Lymphocytes % 21.9 %; Mean Corpuscular HGB Conc 31.8 g/dL (30.0-36.0); Mean Corpuscular Hemoglobin 29.2 pg (28.0-34.0); Mean Corpuscular Volume 91.8 fl (81-99); Mean Platelet Volume 10.1 fL (7.4-10.4); Monocytes # 0.4 10^3/uL (0.2-0.9); Monocytes % 8.5 %; Neutrophils # 3.31 10^3/uL (1.8-7.7); Nucleated Red Blood Cells % 0 %; Platelet Count 199 10^3/cmm (130-400); Red Blood Count 4.63 10^6/uL (4.1-5.3); Red Cell Distribution Width 13.4 % (12.1-15.1); White Blood Count 4.9 10^3/uL (4.0-10.0)
[2023-04-12 11:43] LABS: Alanine Aminotransferase 9 U/L (0-33); Albumin Level 4.1 g/dL (3.5-5.2); Alkaline Phosphatase 96 U/L (35-105); Anion Gap 17.5 (5-19); Aspartate Amino Transferase 13 U/L (0-32); Blood Urea Nitrogen 12 mg/dL (8-23); Calcium 8.9 mg/dL (8.5-10.5); Carbon Dioxide 20 mmol/L (22-29); Chloride 104 mmol/L (98-107); Globulin 2.6 g/dL (1.3-4.6); Glomerular Filtration Rate 62.8 mL/min (90-130); Glucose 95 mg/dL (65-115); Osmolality Calculated 286 mOsm/kg (285-295); Potassium 3.5 mmol/L (3.5-5.1); Sodium 138 mmol/L (136-145); Total Bilirubin 0.5 mg/dL (0.15-1.2); Total Protein 6.7 g/dL (6.6-8.7)
[2023-04-12 12:15] LABS: Urine Appearance SL Hazy (CLEAR); Urine Color Yellow (Yellow)
[2023-04-12 12:17] LABS: Add Urine Microscopic? YES; Bilirubin Urine Neg (Negative); Blood Urine 2+ (Negative); Glucose Urine UA Norm (Normal); Ketones Urine 1+ (Negative); Leukocyte Esterase Urine Negative (Negative); Nitrate Urine Negative (Negative); Protein Urine Neg (Negative); Urobilinogen Urine Norm (Negative); pH Urine 6 (5-7)
[2023-04-12 12:19] LABS: Add Urine Culture? No; Amorphous Sediment Urine TRACE /hpf; Bacteria Urine 1+ /hpf; Mucus Urine 1+ /hpf; RBC Urine 0-4 /hpf (0-2); Triple Phosphate Crystal Urine 0-4 /hpf; WBC Urine 0-4 /hpf (0-5)
== END 2023-04-12 12:31 | disposition home or self-care (01) ==
PROVIDERS: Emergency Provider Family Medicine; PCP Family Medicine
DX: M70.61 Trochanteric bursitis, right hip (principal); Z79.82 Long term (current) use of aspirin; N18.30 Chronic kidney disease, stage 3 unspecified; Z85.850 Personal history of malignant neoplasm of thyroid; Z87.891 Personal history of nicotine dependence
CPT/HCPCS: 73502; 80053; 81001; 85025; 99284

== ENCOUNTER 2023-04-17 09:44 | Emergency (ER) | payer MEDICARE, SELFPAY ==
[2023-04-17 09:52] VITALS: BP 99/67; PULSE 101; RESP 17; TEMP 36.7; O2SAT 98; BMI 23.5
--- NOTE | 2023-04-17 10:00 | W.ED.FEMALGU ---
HPI - Female Genitourinary General: Chief complaint: Urogenital-Female Stated complaint: possible UTI Time Seen by Provider: 04/17/23 10:00 History of Present Illness: 63-year-old lady presenting with urinary symptoms concern for UTI. She reports onset of symptoms last night with burning and urinary frequency. She does endorse low-grade fevers however denies other signs systemic illness. No flank pain or nausea vomiting. No abdominal pain. Intensity symptoms is mild to moderate. Course has persisted. She does have a history of UTIs. No other specific changes in health, exacerbating, or alleviating factors identified. Onset (ago): hour(s) Quality of pain: burning Urinary symptoms: Dysuria and Frequency Review of Systems General: Reports: 10 or more systems reviewed and unremarkable except in HPI and below PFSH ED PFSH: Medical History Acquired hypothyroidism Chronic headache CKD (chronic kidney disease) stage 3, GFR 30-59 ml/min Hiatal hernia History of thyroid cancer Psychiatric care Umbilical hernia Wedge compression fracture of L1 vertebra 10% anterior wedge Surgical History History of bunionectomy of both great toes History of hysterectomy for endometriosis, still has ovaries History of placement of ear tubes left History of release of tendon left ulnar nerve History of thyroidectomy Family History Mother CAD (coronary artery disease) Diabetes Father Diabetes Dementia Grandfather Cancer stomach Grandfather Cancer colon Daughter Hypertension Social History Smoking and tobacco status: former smoker Quit status (tobacco): has quit using tobacco Year quit tobacco: sep 2022 Former quit date comment: 100 pack year history - 2ppd x 50 years Alcohol intake: current Alcohol intake frequency: holidays/special occasions only Household members: family Marital status: / Number of children: 2 Number of grandchildren: 4 Current occupational status: disabled Agree to transfusion: Yes Physical Exam Const: COMMON NORMALS: alert GENERAL APPEARANCE: cooperative and well developed HENMT: COMMON NORMALS: normocephalic and atraumatic HEAD & SCALP: normocephalic and atraumatic Eye: COMMON NORMALS: conjunctivae normal CONJUNCTIVA: Yes conjunctivae normal SCLERA: sclerae normal Neck/C-Spine: COMMON NORMALS: supple GENERAL: Yes trachea midline Resp: COMMON NORMALS: normal respiratory effort EFFORT & INSPECTION: Yes able to speak in complete sentences Cardio: COMMON NORMALS: regular rate and regular rhythm RATE: regular rate RHYTHM: regular rhythm GI: COMMON NORMALS: Soft to palpation PALPATION: Yes Soft to palpation and No Tenderness to palpation present (GI) : COMMON NORMALS: Yes no CVA tenderness BLADDER/KIDNEY EXAM: Yes no CVA tenderness Back/Pelvis: COMMON NORMALS: no CVA tenderness Extremity: GENERAL: Yes normal exam except as noted and No edema Neuro: COMMON NORMALS: moves all extremities SENSORIUM/ORIENTATION: Yes alert and No Orientation impaired Psych: COMMON NORMALS: mental status grossly normal and Normal thought process present THOUGHT PROCESS: Normal thought process present Course Vital Signs: Vital signs: Vital Signs Temperature 98.1 F 04/17/23 09:52 Pulse Rate 86 04/17/23 11:17 Respiratory Rate 16 04/17/23 11:17 Blood Pressure 141/72 04/17/23 11:17 Pulse Oximetry 96 04/17/23 11:17 Oxygen Delivery Me thod Room Air 04/17/23 09:52 MDM - Female Medical Decision Making Patient presents with urinary symptoms. She is nontoxic on clinical exam, initial mild tachycardia however improved spontaneously and certainly patient does not appear septic. She is afebrile. Prior urine culture from 01/10 reviewed and E. coli that is pansensitive. Patient endorses multiple antibiotic allergies including penicillins, likely cephalosporins, and ciprofloxacin though this is somewhat less clear. Additionally she cannot recall however she has a itching allergy listed to Bactrim. Given review of prior cultures I will prescribe doxycycline as prior E. coli was sensitive to tetracycline The results of ED evaluation were discussed with the patient including prescriptions and/or symptomatic cares (if applicable) including appropriate and responsible use, followup plan, and return precautions. The patient verbalized understanding and felt safe for discharge. Medical Records I reviewed the patient's medical records. Lab Data I reviewed the patient's lab results. Laboratory Results Urine Color Yellow (Yellow) 04/17/23 10:44 Urine Appearance Hazy (CLEAR) A 04/17/23 10:44 Urine pH 6.5 (5-7) 04/17/23 10:44 Ur Specific [place] 1.030 (1.005-1.030) 04/17/23 10:44 Urine Protein 1+ (Negative) H 04/17/23 10:44 Urine Glucose (UA) Norm (Normal) 04/17/23 10:44 Urine Ketones Negative (Negative) 04/17/23 10:44 Urine Blood 2+ (Negative) H 04/17/23 10:44 Urine Nitrate Positive (Negative) H 04/17/23 10:44 Urine Bilirubin 1+ (Negative) H 04/17/23 10:44 Urine Urobilinogen Norm mg/dL (Negative) 04/17/23 10:44 Ur Leukocyte Esterase 2+ (Negative) H 04/17/23 10:44 Urine RBC 0-4 /hpf (0-2) H 04/17/23 10:44 Urine WBC 5-10 /hpf (0-5) H 04/17/23 10:44 Ur Squamous Epith Cells 0-4 /hpf (0-5) H 04/17/23 10:44 Amorphous Sediment 1+ /hpf 04/17/23 10:44 Urine Bacteria 2+ /hpf (NONE) H 04/17/23 10:44 Discharge Plan Discharge Patient Disposition: Home Clinical Impression: Urinary tract infection Condition: Stable Prescriptions: No Action lorazepam 0.5 mg tablet See Rx Instructions .ROUTE .COMPLEX Rx Instructions: 0.5 mg (1 tab) by mouth in the am and 1mg (2 tabs) by mouth at bedtime trazodone 100 mg tablet 300 mg PO BEDTIME escitalopram oxalate 20 mg tablet 40 mg PO QAM aspirin 81 mg tablet,delayed release (DR/EC) 81 mg PO QAM (DME) bath chair See Rx Instructions .Route .MEDSUPPLY Qty: 1 0RF Rx Instructions: use while bathing. (DME) cane Device See Rx Instructions .Route Qty: 1 0RF Rx Instructions: four pronged cane famotidine 40 mg tablet 40 mg PO BID Qty: 180 0RF pravastatin 20 mg tablet 20 mg PO DAILY Qty: 90 0RF (DME) walker See Rx Instructions .Route .MEDSUPPLY Qty: 1 0RF Rx Instructions: As directed Tylenol Ex Str Rapid Release 500 mg Tablet 1,000 mg PO Q6H PRN (Reason: Pain) potassium gluconate 595 mg (99 mg) Tablet 595 mg PO QAM oxybutynin chloride 10 mg tablet extended release 24hr 10 mg PO QAM donepezil 10 mg tablet 10 mg PO QAM Euthyrox 150 mcg tablet 150 mcg PO QAM diclofenac sodium 75 mg tablet,delayed release (DR/EC) 75 mg PO QAM topiramate 50 mg capsule,extended release 24hr 50 mg PO QAM Discharge Orders: Discharge ED (Routine); Ordered 04/17/23 Ordered By: Holden Ramsey Referrals: Chyna Mccray MD [Primary Care Provider] - Discharge Diet: Usual diet Discharge Activity: Resume usual activity Patient Instructions: Doxycycline (By mouth), Urinary Tract Infection in Women (ED) Activity Restrictions/Additional Instructions: Thank you for visiting the emergency department. You were seen and evaluated for urinary symptoms. The most likely cause of your symptoms is urinary tract infection. This will be treated with antibiotics. Please ensure that you are staying hydrated. You may use [id number] medications such as acetaminophen and ibuprofen for pain however please do not exceed the daily recommended dosage as listed on the packaging and please keep in mind that many namebrand medications contain the same active ingredients. Please avoid these medications if previously instructed to do so by another physician due to other underlying medical condition. Follow-up with a primary care provider. Return to the emergency department for worsening symptoms or anything else that you are concerned about and feel needs emergency department evaluation. Coding Level of Care Code ED Assembly Department Supervisor for Supriya Durand
[2023-04-17 10:51] LABS: Add Urine Culture? Yes; Add Urine Microscopic? YES; Amorphous Sediment Urine 1+ /hpf; Bacteria Urine 2+ /hpf; Bilirubin Urine 1+ (Negative); Blood Urine 2+ (Negative); Glucose Urine UA Norm (Normal); Ketones Urine Negative (Negative); Leukocyte Esterase Urine 2+ (Negative); Nitrate Urine Positive (Negative); Protein Urine 1+ (Negative); RBC Urine 0-4 /hpf (0-2); Squamous Epithelial Cell Urine 0-4 /hpf (0-5); Urine Appearance Hazy (CLEAR); Urine Color Yellow (Yellow); Urobilinogen Urine Norm (Negative); pH Urine 6.5 (5-7)
[2023-04-17] MEDS: doxycycline 100 mg Tablet PO (11:13)
[2023-04-17 11:17] VITALS: BP 141/72; PULSE 86; RESP 16; O2SAT 96
== END 2023-04-17 11:19 | disposition home or self-care (01) ==
PROVIDERS: Emergency Provider Emergency Medicine; PCP Family Medicine
DX: N39.0 Urinary tract infection, site not specified (principal); Z87.440 Personal history of urinary (tract) infections; Z86.19 Personal history of other infectious and parasitic diseases
CPT/HCPCS: 81001; 87077; 87086; 87186; 99283

== ENCOUNTER 2023-04-19 09:49 | Emergency (ER) | payer MEDICARE, SELFPAY ==
[2023-04-19 09:53] VITALS: BP 129/79; PULSE 92; RESP 18; TEMP 36.6; O2SAT 99
--- NOTE | 2023-04-19 09:57 | XR_ITS ---
WS: [id number] EXAMINATION: XR chest 1V portable [id number] REASON FOR EXAM: screening COMPARISON: 06/16/2014 ORDER DATE: 04/19/2023 10:01 AM TECHNIQUE: A single, portable frontal chest x-ray was obtained. X-RAY FINDINGS: The lungs are clear. Pleural spaces are clear. No pleural effusions or pneumothorax. Cardiomediastinal silhouette demonstrates somewhat ectatic tortuous descending thoracic aorta.. No ev idence for pulmonary edema. Soft tissue and osseous structures are unremarkable. No tubes or lines are present. XR/XR chest 1V portable [id number] IMPRESSION: Unremarkable frontal portable chest x-ray.
--- NOTE | 2023-04-19 10:11 | ECG_ITS ---
[facility] Test Date: 2023-04-19 Pat Name: Franchesca Huerta (Sandy) Department: Room: Gender: Female Component Lab Tech: : [id number] Requested By: Armando Abdul Order Number: [id number] Reading MD: Caryl Marcano M.D. Measurements Intervals [place] Rate: 81 P: 45 [place]: 161 QRS: 48 QRSD: 88 T: 50 QT: 366 QTc: 426 Interpretive Statements SINUS RHYTHM No previous ECG available for comparison Electronically Signed On 04-19-2023 16:24:16 CDT by Caryl Marcano M.D. [email or web address] center[facility].[employer]/store/OM/[id number]
--- NOTE | 2023-04-19 10:34 | W.ED.PSYCHS ---
HPI - Psych General: Chief Complaint: Psychiatric Symptoms Stated Complaint: SI Time Seen by Provider: 04/19/23 09:57 Source: patient Mode of arrival: ambulatory History of Present Illness: 63-year-old female presents emergency room with complaints of suicidal ideation. Patient reports being depressed she states she feels in intent to kill herself but has no specific plan but if she found the means she thinks she would kill herself. Her daughter is with her she recently moved here from [place] she sees a psychiatrist in [place] has continued to see her since moving here evidently by phone or telehealth. She is continuing to take all of her medications. She is on aripiprazole 15 mg daily. She has not done anything to advance lethality to this point. MD complaint: suicidal ideation Onset (ago): minute(s) Duration: constant History of same: Yes Relieving factors: none Exacerbating factors: none Associated psychiatric symptoms: depression and suicidal ideation Associated symptoms: Reports depression and suicidal ideation Treatments prior to arrival: none If self harm: admits thoughts of self harm Review of Systems Const: Denies: fever(s), chills, body aches, change in appetite, fatigue or malaise Card: Denies: chest pain, edema, dyspnea on exertion or orthopnea Resp: Denies: dyspnea, productive cough or non-productive cough GI: Denies: abdominal pain, nausea, vomiting, hematemesis, coffee ground emesis, diarrhea, constipation, bloating, hematochezia or melena : Denies: flank pain, difficulty voiding, dysuria, urinary frequency or urinary urgency Skin/Breast: Denies: rash or pruritus Psych: Reports: depression and suicidal ideation [facility] ED PFSH: Medical History Acquired hypothyroidism Chronic headache CKD (chronic kidney disease) stage 3, GFR 30-59 ml/min Hiatal hernia History of thyroid cancer Psychiatric care Umbilical hernia Wedge compression fracture of L1 vertebra 10% anterior wedge Surgical History History of bunionectomy of both great toes History of hysterectomy for endometriosis, still has ovaries History of placement of ear tubes left History of release of tendon left ulnar nerve History of thyroidectomy Family History Mother CAD (coronary artery disease) Diabetes Father Diabetes Dementia Grandfather Cancer stomach Grandfather Cancer colon Daughter Hypertension Social History Smoking and tobacco status: former smoker Quit status (tobacco): has quit using tobacco Year quit tobacco: sep 2022 Former quit date comment: 100 pack year history - 2ppd x 50 years Alcohol intake: current Alcohol intake frequency: holidays/special occasions only Household members: family Marital status: / Number of children: 2 Number of grandchildren: 4 Current occupational status: disabled Agree to transfusion: Yes Physical Exam Const: GENERAL APPEARANCE: cooperative and comfortable ORIENTATION/CONSCIOUSNESS: Yes awake, Yes oriented to person, Yes oriented to place and Yes oriented to time HENMT: COMMON NORMALS: normocephalic, atraumatic and hearing grossly normal bilaterally HEAD & SCALP: normocephalic and atraumatic Resp: COMMON NORMALS: normal respiratory effort, No retractions, No use of accessory muscles and clear to auscultation bilaterally AUSCULTATION: clear to auscultation bilaterally Cardio: COMMON NORMALS: regular rate, regular rhythm and No murmurs present (Cardio) RATE: regular rate RHYTHM: regular rhythm GI: COMMON NORMALS: Soft to palpation and No hepatosplenomegaly present AUSCULTATION: Yes normoactive bowel sounds PALPATION: Yes Soft to palpation, No Tenderness to palpation present (GI), No Guarding due to palpation present (GI) and Yes No hepatosplenomegaly present Extremity: COMMON NORMALS: normal to inspection, capillary refill normal, no clubbing, cyanosis or edema, no calf tenderness and no pedal edema Neuro: SENSORIUM/ORIENTATION: Yes oriented to person, Yes oriented to place and Yes oriented to time Skin: COMMON NORMALS: no rashes or lesions noted GENERAL SKIN EXAM: no rashes or lesions noted Course Vital Signs: Vital signs: Vital Signs Temperature 98.6 F 04/19/23 18:39 Pulse Rate 82 04/20/23 06:36 Respiratory Rate 16 04/20/23 06:36 Blood Pressure 113/64 04/20/23 06:36 Pulse Oximetry 97 04/20/23 06:36 Oxygen Delivery Me thod Room Air 04/20/23 06:23 MDM - Psych Medical Decision Making Care signed out to Dr. Newman at change of shift. See final notes for diagnosis and disposition. Suicidal ideation staff is currently looking for geriatric psychiatry facility for admission Patient presents to the ER with depression and expressing suicidal ideation. Initial screening labs unremarkable medically is cleared for admission to [facility] we are currently looking for placement. Medical Records I reviewed the patient's medical records. Lab Data I reviewed the patient's lab results. 04/19/23 11:08 04/19/23 11:08 Radiology Impressions Chest X-Ray 04/19/23 09:57 IMPRESSION: Unremarkable frontal portable chest x-ray. Laboratory Results WBC 3.8 10^3/uL (4.0-10.0) L 04/19/23 11:08 RBC 5.20 10^6/uL (4.1-5.3) 04/19/23 11:08 Hgb 14.9 g/dL (11.5-15.3) 04/19/23 11:08 Hct 44.1 % (37.0-47.0) 04/19/23 11:08 MCV 84.8 fl (81-99) 04/19/23 11:08 MCH 28.7 pg (28.0-34.0) 04/19/23 11:08 MCHC 33.8 g/dL (30.0-36.0) 04/19/23 11:08 RDW 13.1 % (12.1-15.1) 04/19/23 11:08 Plt Count 189 10^3/cmm (130-400) 04/19/23 11:08 MPV 10.3 fL (7.4-10.4) 04/19/23 11:08 Neut % (Auto) 67.2 % 04/19/23 11:08 Lymph % (Auto) 21.9 % 04/19/23 11:08 [place] % (Auto) 7.7 % 04/19/23 11:08 Eos % (Auto) 1.3 % 04/19/23 11:08 Baso % (Auto) 1.6 % 04/19/23 11:08 Neut # (Auto) 2.55 10^3/uL (1.8-7.7) 04/19/23 11:08 Lymph # (Auto) 0.8 10^3/uL (0.8-4.8) 04/19/23 11:08 [place] # (Auto) 0.3 10^3/uL (0.2-0.9) 04/19/23 11:08 Eos # (Auto) 0.1 10^3/uL (0.0-0.8) 04/19/23 11:08 Baso # (Auto) 0.1 10^3/uL (0.0-0.1) 04/19/23 11:08 Nucleated RBC % (auto) 0 % 04/19/23 11:08 Nucleated RBCs # 0.0 /100WBC 04/19/23 11:08 Sodium 137 mmol/L (136-145) 04/19/23 11:08 Potassium 3.5 mmol/L (3.5-5.1) 04/19/23 11:08 Chloride 105 mmol/L (98-107) 04/19/23 11:08 Carbon Dioxide 17 mmol/L (22-29) L 04/19/23 11:08 Anion Gap 18.5 (5-19) 04/19/23 11:08 BUN 9 mg/dL (8-23) 04/19/23 11:08 Creatinine 1.1 mg/dL (0.5-0.9) H 04/19/23 11:08 GFR Calculation 49.8 mL/min (90-130) L 04/19/23 11:08 Glucose 90 mg/dL (65-115) 04/19/23 11:08 Calculated Osmolality 282 mOsm/kg (285-295) L 04/19/23 11:08 Calcium 9.0 mg/dL (8.5-10.5) 04/19/23 11:08 Total Bilirubin 0.4 mg/dL (0.15-1.2) 04/19/23 11:08 AST 14 U/L (0-32) 04/19/23 11:08 ALT 7 U/L (0-33) 04/19/23 11:08 Alkaline Phosphatase 83 U/L (35-105) 04/19/23 11:08 Total Protein 6.3 g/dL (6.6-8.7) L 04/19/23 11:08 Albumin 3.4 g/dL (3.5-5.2) L 04/19/23 11:08 Globulin 2.9 g/dL (1.3-4.6) 04/19/23 11:08 TSH 0.11 uIU/mL (0.27-4.20) L 04/19/23 11:08 Urine Color Yellow (Yellow) 04/19/23 11:39 Urine Appearance Sl hazy (CLEAR) A 04/19/23 11:39 Urine pH 5 (5-7) 04/19/23 11:39 Ur Specific [place] 1.020 (1.005-1.030) 04/19/23 11:39 Urine Protein Neg (Negative) 04/19/23 11:39 Urine Glucose (UA) Norm (Normal) 04/19/23 11:39 Urine Ketones Negative (Negative) 04/19/23 11:39 Urine Blood Neg (Negative) 04/19/23 11:39 Urine Nitrate Negative (Negative) 04/19/23 11:39 Urine Bilirubin Neg (Negative) 04/19/23 11:39 Urine Urobilinogen Norm mg/dL (Negative) 04/19/23 11:39 Ur Leukocyte Esterase Negative (Negative) 04/19/23 11:39 Urine RBC Rare /hpf (0-2) 04/19/23 11:39 Urine WBC 0-4 /hpf (0-5) H 04/19/23 11:39 Ur Squamous Epith Cells 0-4 /hpf (0-5) H 04/19/23 11:39 Calcium Oxalate Crystal 0-4 /hpf H 04/19/23 11:39 Amorphous Sediment Not Reportable 04/19/23 11:39 Urine Bacteria Trace /hpf (NONE) 04/19/23 11:39 Urine Mucus 2+ /hpf 04/19/23 11:39 Salicylates < 0.3 mg/dL (3-10) L 04/19/23 11:08 Urine Opiates Screen Negative ng/mL (Negative) 04/19/23 11:39 Acetaminophen 10.4 ug/mL (10-30) 04/19/23 11:08 Ur Barbiturates Screen Negative ng/mL (Negative) 04/19/23 11:39 Ur Phencyclidine Scrn Negative ng/mL (Negative) 04/19/23 11:39 Ur Amphetamines Screen Negative ng/mL (Negative) 04/19/23 11:39 U Benzodiazepines Scrn Positive ng/mL (Negative) H 04/19/23 11:39 Urine Cocaine Screen Negative ng/mL (Negative) 04/19/23 11:39 U Marijuana (THC) Screen Negative ng/mL (Negative) 04/19/23 11:39 Ethyl Alcohol < 10 mg/dL (0-10) 04/19/23 11:08 Coronavirus 229E (PCR) Not detected (NOT DETECT) 04/19/23 11:33 SARS-CoV-2 (PCR) Not detected (NOT DETECT) 04/19/23 11:33 Discharge Plan Discharge Patient Disposition: Xfer Psychiatric Hosp Clinical Impression: Suicidal ideation Condition: Stable Referrals: Chyna Mccray MD [Primary Care Provider] - Coding Level of Care Code ED Carpet Layer for Supriya Durand
[2023-04-19] MEDS: LORazepam 1 mg Tablet PO (11:14)
[2023-04-19 11:22] LABS: Basophils # 0.1 10^3/uL (0.0-0.1); Basophils % 1.6 %; Eosinophils # 0.1 10^3/uL (0.0-0.8); Eosinophils % 1.3 %; Hematocrit 44.1 % (37.0-47.0); Hemoglobin 14.9 g/dL (11.5-15.3); Lymphocytes # 0.8 10^3/uL (0.8-4.8); Lymphocytes % 21.9 %; Mean Corpuscular HGB Conc 33.8 g/dL (30.0-36.0); Mean Corpuscular Hemoglobin 28.7 pg (28.0-34.0); Mean Corpuscular Volume 84.8 fl (81-99); Mean Platelet Volume 10.3 fL (7.4-10.4); Monocytes # 0.3 10^3/uL (0.2-0.9); Monocytes % 7.7 %; Neutrophils # 2.55 10^3/uL (1.8-7.7); Neutrophils % 67.2 %; Nucleated Red Blood Cells % 0 %; Platelet Count 189 10^3/cmm (130-400); Red Cell Distribution Width 13.1 % (12.1-15.1); White Blood Count 3.8 10^3/uL (4.0-10.0)
[2023-04-19 11:47] LABS: Acetaminophen 10.4 ug/mL (10-30); Alanine Aminotransferase 7 U/L (0-33); Albumin Level 3.4 g/dL (3.5-5.2); Alkaline Phosphatase 83 U/L (35-105); Aspartate Amino Transferase 14 U/L (0-32); Blood Urea Nitrogen 9 mg/dL (8-23); Carbon Dioxide 17 mmol/L (22-29); Chloride 105 mmol/L (98-107); Globulin 2.9 g/dL (1.3-4.6); Glomerular Filtration Rate 49.8 mL/min (90-130); Glucose 90 mg/dL (65-115); Osmolality Calculated 282 mOsm/kg (285-295); Sodium 137 mmol/L (136-145); Thyroid Stimulating Hormone 0.11 uIU/mL (0.27-4.20); Total Bilirubin 0.4 mg/dL (0.15-1.2); Total Protein 6.3 g/dL (6.6-8.7)
[2023-04-19 11:51] LABS: Alcohol Level < 10 mg/dL (0-10); Salicylate < 0.3 mg/dL (3-10)
[2023-04-19 11:53] LABS: Anion Gap 18.5 (5-19); Potassium 3.5 mmol/L (3.5-5.1)
[2023-04-19 12:26] LABS: Amphetamines Screen Urine Negative (Negative); Barbiturates Screen Urine Negative (Negative); Benzodiazepines Screen Urine Positive (Negative); Cocaine Screen Urine Negative (Negative); Opiate Screen Urine Negative (Negative); PCP Screen Urine Negative (Negative); THC Screen Urine Negative (Negative)
[2023-04-19 12:32] LABS: Add Urine Microscopic? YES; Bilirubin Urine Neg (Negative); Blood Urine Neg (Negative); Glucose Urine UA Norm (Normal); Ketones Urine Negative (Negative); Leukocyte Esterase Urine Negative (Negative); Nitrate Urine Negative (Negative); Protein Urine Neg (Negative); RBC Urine RARE /hpf (0-2); Urine Appearance SL Hazy (CLEAR); Urine Color Yellow (Yellow); Urobilinogen Urine Norm (Negative); pH Urine 5 (5-7)
[2023-04-19 12:33] LABS: Add Urine Culture? No; Bacteria Urine TRACE /hpf; Calcium Oxalate Crystals Urine 0-4 /hpf; Mucus Urine 2+ /hpf; Squamous Epithelial Cell Urine 0-4 /hpf (0-5); WBC Urine 0-4 /hpf (0-5)
[2023-04-19 13:24] LABS: Adenovirus Not Detected (NOT DETECT); Chlamydia Pneumoniae Not Detected (NOT DETECT); Coronavirus 229E,HKU1,NL63,OC4 Not Detected (NOT DETECT); Human Metapneumovirus Not Detected (NOT DETECT); Human Rhinovirus/Enterovirus Not Detected (NOT DETECT); Influenza A Not Detected (NOT DETECT); Influenza A H1 Not Detected (NOT DETECT); Influenza A H1-2009 Not Detected (NOT DETECT); Influenza A H3 Not Detected (NOT DETECT); Influenza B Not Detected (NOT DETECT); Mycoplasma Pneumoniae Not Detected (NOT DETECT); Parainfluenza Virus Type 1 Not Detected (NOT DETECT); Parainfluenza Virus Type 2 Not Detected (NOT DETECT); Parainfluenza Virus Type 3 Not Detected (NOT DETECT); Parainfluenza Virus Type 4 Not Detected (NOT DETECT); Respiratory Syncytial Virus A Not Detected (NOT DETECT); Respiratory Syncytial Virus B Not Detected (NOT DETECT); SARS-COV-2 Not Detected (NOT DETECT)
--- NOTE | 2023-04-19 15:28 | PC.PHAR ---
pts daughter verified pts medications-pts daughter states she dced the pts aripiprazole 10mg daily filled on 03/24/23 30d/s states she dced this a few weeks ago-pts daughter states the pts cymbalta 60mg qam filled 01/04/23 90d/s and 30mg 90mg qam filled 01/24/23 30d/s was dced-notes are made in the pharmacy comments
[2023-04-19 18:39] VITALS: BP 128/81; PULSE 78; TEMP 37; O2SAT 99
[2023-04-19] MEDS: acetaminophen 500 mg Tablet 1000 MG PO (19:51)
--- NOTE | 2023-04-19 20:02 | PC.NURSE ---
Patient requesting tylenol for a headache and then her po night meds ( trazodone 300mg). Per verbal order Dr Porras, tylenol 1gm and her regular dose of trazodone 100mg 3 tabs at hs. RBVO.
[2023-04-19] MEDS: trazodone 100 mg Tablet 300 MG PO (22:21)
[2023-04-20] MEDS: acetaminophen 500 mg Tablet 1000 MG PO (05:21)
[2023-04-20 06:23] VITALS: BP 113/64; PULSE 82; RESP 16; O2SAT 97
[2023-04-20 06:36] VITALS: BP 113/64; PULSE 82; RESP 16; O2SAT 97
== END 2023-04-20 07:41 ==
PROVIDERS: Family Medicine; Emergency Provider Emergency Medicine; PCP Family Medicine
DX: R45.851 Suicidal ideations (principal); F32.A Depression, unspecified
CPT/HCPCS: 71045; 80053; 80306; 80307; 81001; 84443; 85025; 87635; 93005; 99285

== ENCOUNTER 2023-08-22 20:10 | Emergency (ER) | payer MEDICARE, MEDICAID, SELFPAY ==
[2023-08-22 20:13] VITALS: BP 124/67; PULSE 93; RESP 18; TEMP 36.6; O2SAT 98; BMI 26.6
--- NOTE | 2023-08-22 20:14 | CTR_ITS ---
PROCEDURE INFORMATION: Exam: CT Head Without Contrast Exam date and time: 08/22/2023 8:25 PM Age: 63 years old Clinical indication: Altered mental status/memory loss; Additional info: AMS TECHNIQUE: Imaging protocol: Computed tomography of the head without contrast. Radiation optimization: All CT scans at this facility use at least one of these dose optimization techniques: automated exposure control; mA and/or kV adjustment per patient size (includes targeted exams where dose is matched to clinical indication); or iterative reconstruction. REPORTING DATA: Count of CT and Cardiac NM exams in prior 12 months: This patient has received [address] and 0 known cardiac nuclear medicine studies in the 12 months prior to the current study. COMPARISON: MR head wo con* [id number] 01/27/2023 10:30 AM RADIATION DOSE METRICS: Total DLP (mGy-cm): 1099.45 FINDINGS: Brain: Moderate diffuse white matter disease likely reflecting chronic microvascular ischemic changes. Bilateral benign basal ganglia calcifications. Cerebral ventricles: No ventriculomegaly. Paranasal sinuses: Visualized sinuses are unremarkable. No fluid levels. Mastoid air cells: Visualized mastoid air cells are well aerated. Bones/joints: Unremarkable. No acute fracture. Soft tissues: Unremarkable. CT/CT head wo con* [id number] IMPRESSION: 1. Negative for intracranial hemorrhage or mass effect. 2. Moderate diffuse white matter disease likely reflecting chronic microvascular ischemic changes. 3. Bilateral benign basal ganglia calcifications.
--- NOTE | 2023-08-22 20:14 | XRR_ITS ---
PROCEDURE INFORMATION: Exam: XR Chest Exam date and time: 08/22/2023 8:22 PM Age: 63 years old Clinical indication: Other: Weakness; Prior surgery; Surgery date: 6+ months; Surgery type: Thyroid; Additional info: AMS TECHNIQUE: Imaging protocol: Radiologic exam of the chest. Views: 1 view. COMPARISON: CR XR chest 1V portable [id number] 04/19/2023 10:03 AM FINDINGS: Lungs: Unremarkable. No consolidation. Pleural spaces: Unremarkable. No pleural effusion. No pneumothorax. Heart/Mediastinum: Unremarkable. No cardiomegaly. Bones/joints: Unremarkable. XR/XR chest 1V portable [id number] IMPRESSION: No acute findings.
--- NOTE | 2023-08-22 20:17 | ECG_ITS ---
[facility] Test Date: 2023-08-22 Pat Name: Franchesca Huerta (Sandy) Department: Room: Gender: Female Cub Reporter: : 1960 Requested By: Chantelle Newman Order Number: [id number] Reading MD: Caryl Marcano M.D. Measurements Intervals [place] Rate: 86 P: 0 NV: 0 QRS: 41 QRSD: 82 T: 3 QT: 318 QTc: 381 Interpretive Statements SINUS RHYTHM WITH ARTIFACT Compared to ECG 04/19/2023 10:11:16 NO CHANGE Electronically Signed On 08-22-2023 21:13:48 CDT by Caryl Marcano M.D. [email or web address]/[id number]
[2023-08-22 20:25] VITALS: BP 124/67; PULSE 84; RESP 15; O2SAT 98
--- NOTE | 2023-08-22 20:25 | W.ED.GENADLT ---
HPI - General Adult General: Stated complaint: WEAKNESS Time Seen by Provider: 08/22/23 20:12 Source: patient and EMS Mode of arrival: EMS Limitations: no limitations History of Present Illness: 63-year-old female is here from [facility] states that when she is eaten tonight she had became unresponsive they state when she woke up she seemed to have a left-sided facial droop lasted roughly 2 minutes patient's had a previous strokes has left-sided weakness from that stroke after the 2 minutes patient's been back to her baseline she has been talking she is answering my questions here appropriately has no complaints no new symptoms at this time besides her left-sided weakness from previous stroke. Associated symptoms: Reports confusion; Deny chest pain, dyspnea, headache(s), nausea, rash or vomiting Review of Systems Const: Denies: fever(s), chills, body aches or change in appetite Eyes: Denies: blurry vision or eye discomfort ENMT: Denies: throat pain or dental pain Card: Denies: chest pain Resp: Denies: dyspnea GI: Denies: abdominal pain, nausea, vomiting or diarrhea Musc: Denies: neck pain or back pain Skin/Breast: Denies: rash Neuro: Reports: confusion; Denies: headache(s) PFSH ED PFSH: Medical History Acquired hypothyroidism Chronic headache CKD (chronic kidney disease) stage 3, GFR 30-59 ml/min Hiatal hernia History of thyroid cancer Psychiatric care Umbilical hernia Wedge compression fracture of L1 vertebra 10% anterior wedge Surgical History History of bunionectomy of both great toes History of hysterectomy for endometriosis, still has ovaries History of placement of ear tubes left History of release of tendon left ulnar nerve History of thyroidectomy Family History Mother CAD (coronary artery disease) Diabetes Father Diabetes Dementia Grandfather Cancer stomach Grandfather Cancer colon Daughter Hypertension Social History Smoking and tobacco/nicotine status: former use of tobacco/nicotine Quit status (tobacco/nicotine): has quit using Year quit tobacco: sep 2022 Former quit date comment: 100 pack year history - 2ppd x 50 years Alcohol intake: current Alcohol intake frequency: holidays/special occasions only Household members: family Marital status: / Number of children: 2 Number of grandchildren: 4 Current occupational status: disabled Agree to transfusion: Yes Physical Exam Const: COMMON NORMALS: no acute distress and patient oriented x3 HENMT: COMMON NORMALS: normocephalic HEAD & SCALP: normocephalic Eye: COMMON NORMALS: Equal, round and reactive pupils present and conjunctivae normal CONJUNCTIVA: Yes conjunctivae normal PUPIL: Yes Equal, round and reactive pupils present Neck/C-Spine: COMMON NORMALS: supple Chest: COMMONS NORMALS: normal inspection of the chest Resp: COMMON NORMALS: normal respiratory effort Cardio: COMMON NORMALS: regular rate and regular rhythm RATE: regular rate RHYTHM: regular rhythm Extremity: COMMON NORMALS: normal to inspection Neuro: COMMON NORMALS: patient oriented x3 and CN's II-XII intact bilaterally CRANIAL NERVES: Yes CN normal except as noted SPEECH: speech normal OTHER: 5 out of 5 strength on the right left-sided weakness from previous stroke Course Vital Signs: Vital signs: Vital Signs Temperature 97.8 F 08/22/23 20:13 Pulse Rate 103 H 08/22/23 20:46 Respiratory Rate 16 08/22/23 20:46 Blood Pressure 110/65 08/22/23 20:46 Pulse Oximetry 100 08/22/23 20:46 Oxygen Delivery Me thod Room Air 08/22/23 20:46 MDM - General Adult Medical Decision Making Patient presents here with likely TIA her symptoms resolved her exam here is benign head CT here and blood work are all normal she does have a UTI we will start her on Macrobid she is to follow-up with PCP and return if worsening. Medical Records I reviewed the patient's medical records. Lab Data I reviewed the patient's lab results. 08/22/23 20:19 08/22/23 20:19 Radiology Impressions Chest X-Ray 08/22/23 20:14 IMPRESSION: No acute findings. Head CT 08/22/23 20:14 IMPRESSION: 1. Negative for intracranial hemorrhage or mass effect. 2. Moderate diffuse white matter disease likely reflecting chronic microvascular ischemic changes. 3. Bilateral benign basal ganglia calcifications. Laboratory Results WBC 8.64 10^3/uL (3.29-11.43) 08/22/23 20:19 RBC 3.79 10^6/uL (3.85-5.65) L 08/22/23 20:19 Hgb 11.40 g/dL (11.27-16.99) 08/22/23 20:19 Hct 35.9 % (36-47) L 08/22/23 20:19 MCV 94.7 fl (85-98) 08/22/23 20:19 MCH 30.1 pg (27-33) 08/22/23 20:19 MCHC 31.8 g/dL (30-55) 08/22/23 20:19 RDW 14.8 % (12.1-15.1) 08/22/23 20:19 Plt Count 227 10^3/cmm (157-399) 08/22/23 20:19 MPV 10.6 fL (7.4-10.4) H 08/22/23 20:19 Neut % (Auto) 68.9 % 08/22/23 20:19 Lymph % (Auto) 22.3 % 08/22/23 20:19 [place] % (Auto) 6.1 % 08/22/23 20:19 Eos % (Auto) 1.2 % 08/22/23 20:19 Baso % (Auto) 0.7 % 08/22/23 20:19 Neut # (Auto) 5.95 10^3/uL (1.8-7.7) 08/22/23 20:19 Lymph # (Auto) 1.9 10^3/uL (0.8-4.8) 08/22/23 20:19 [place] # (Auto) 0.5 10^3/uL (0.2-0.9) 08/22/23 20:19 Eos # (Auto) 0.1 10^3/uL (0.0-0.8) 08/22/23 20:19 Baso # (Auto) 0.1 10^3/uL (0.0-0.1) 08/22/23 20:19 Nucleated RBC % (auto) 0 % 08/22/23 20:19 Nucleated RBCs # 0.0 /100WBC 08/22/23 20:19 Sodium 144 mmol/L (136-145) 08/22/23 20:19 Potassium 4.3 mmol/L (3.5-5.1) 08/22/23 20:19 Chloride 112 mmol/L (98-107) H 08/22/23 20:19 Carbon Dioxide 22 mmol/L (22-29) 08/22/23 20:19 Anion Gap 14.3 (5-19) 08/22/23 20:19 BUN 24 mg/dL (8-23) H 08/22/23 20:19 Creatinine 1.1 mg/dL (0.5-0.9) H 08/22/23 20:19 GFR Calculation 49.8 mL/min (90-130) L 08/22/23 20:19 Glucose 130 mg/dL (65-115) H 08/22/23 20:19 Calculated Osmolality 304 mOsm/kg (285-295) H 08/22/23 20:19 Calcium 9.0 mg/dL (8.5-10.5) 08/22/23 20:19 Total Bilirubin 0.4 mg/dL (0.15-1.2) 08/22/23 20:19 AST 13 U/L (0-32) 08/22/23 20:19 ALT < 5 U/L (0-33) 08/22/23 20:19 Alkaline Phosphatase 57 U/L (35-105) 08/22/23 20:19 Total Protein 6.6 g/dL (6.6-8.7) 08/22/23 20:19 Albumin 4.1 g/dL (3.5-5.2) 08/22/23 20:19 Globulin 2.5 g/dL (1.3-4.6) 08/22/23 20:19 Urine Color Yellow (Yellow) 08/22/23 20:44 Urine Appearance Sl hazy (CLEAR) A 08/22/23 20:44 Urine pH 6 (5-7) 08/22/23 20:44 Ur Specific [place] 1.015 (1.005-1.030) 08/22/23 20:44 Urine Protein Neg (Negative) 08/22/23 20:44 Urine Glucose (UA) Norm (Normal) 08/22/23 20:44 Urine Ketones 1+ (Negative) H 08/22/23 20:44 Urine Blood Neg (Negative) 08/22/23 20:44 Urine Nitrate Positive (Negative) H 08/22/23 20:44 Urine Bilirubin Neg (Negative) 08/22/23 20:44 Urine Urobilinogen 1 mg/dL (Negative) H 08/22/23 20:44 Ur Leukocyte Esterase 1+ (Negative) H 08/22/23 20:44 Urine RBC 0-4 /hpf (0-2) H 08/22/23 20:44 Urine WBC 55-80 /hpf (0-5) H 08/22/23 20:44 Ur Squamous Epith Cells 0-4 /hpf (0-5) H 08/22/23 20:44 Amorphous Sediment Not Reportable 08/22/23 20:44 Urine Bacteria 4+ /hpf (NONE) H 08/22/23 20:44 All radiology interpretation(s) finalized by discharge Discharge Plan Discharge Patient Disposition: Home Clinical Impression: Acute UTI, TIA (transient ischemic attack) Condition: Stable Prescriptions: New Macrobid 100 mg capsule 100 mg PO BID 7 Days Qty: 14 0RF Rx Instructions: must administer with a meal/food No Action lorazepam 0.5 mg tablet See Rx Instructions .ROUTE .COMPLEX Rx Instructions: 0.5 mg (1 tab) by mouth in the am and 1mg (2 tabs) by mouth at bedtime trazodone 100 mg tablet 300 mg PO BEDTIME escitalopram oxalate 20 mg tablet 40 mg PO QAM aspirin 81 mg tablet,delayed release (DR/EC) 81 mg PO QAM (DME) bath chair See Rx Instructions .Route .MEDSUPPLY Qty: 1 0RF Rx Instructions: use while bathing. (DME) cane Device See Rx Instructions .Route Qty: 1 0RF Rx Instructions: four pronged cane famotidine 40 mg tablet 40 mg PO BID Qty: 180 0RF pravastatin 20 mg tablet 20 mg PO DAILY Qty: 90 0RF (DME) walker See Rx Instructions .Route .MEDSUPPLY Qty: 1 0RF Rx Instructions: As directed Tylenol Ex Str Rapid Release 500 mg Tablet 1,000 mg PO Q6H PRN (Reason: Pain) potassium gluconate 595 mg (99 mg) Tablet 595 mg PO QAM oxybutynin chloride 10 mg tablet extended release 24hr 10 mg PO QAM donepezil 10 mg tablet 10 mg PO QAM Euthyrox 150 mcg tablet 150 mcg PO QAM diclofenac sodium 75 mg tablet,delayed release (DR/EC) 75 mg PO QAM topiramate 50 mg capsule,extended release 24hr 50 mg PO QAM Discharge Orders: Discharge ED (Routine); Ordered 08/22/23 Ordered By: Chantelle Newman Referrals: hCyna Mccray MD [Primary Care Provider] - 1-3 days Discharge Diet: Advance as tolerated Discharge Activity: Resume usual activity Patient Instructions: Transient Ischemic Attack (ED), Urinary Tract Infection in Women (ED) Coding Level of Care Code ED [employer] for Supriya Durand
[2023-08-22 20:26] LABS: Basophils # 0.1 10^3/uL (0.0-0.1); Basophils % 0.7 %; Eosinophils # 0.1 10^3/uL (0.0-0.8); Eosinophils % 1.2 %; Hematocrit 35.9 % (36-47); Lymphocytes # 1.9 10^3/uL (0.8-4.8); Lymphocytes % 22.3 %; Mean Corpuscular HGB Conc 31.8 g/dL (30-55); Mean Corpuscular Hemoglobin 30.1 pg (27-33); Mean Corpuscular Volume 94.7 fl (85-98); Mean Platelet Volume 10.6 fL (7.4-10.4); Monocytes # 0.5 10^3/uL (0.2-0.9); Monocytes % 6.1 %; Neutrophils # 5.95 10^3/uL (1.8-7.7); Neutrophils % 68.9 %; Nucleated Red Blood Cells % 0 %; Platelet Count 227 10^3/cmm (157-399); Red Blood Count 3.79 10^6/uL (3.85-5.65); Red Cell Distribution Width 14.8 % (12.1-15.1); White Blood Count 8.64 10^3/uL (3.29-11.43)
[2023-08-22 20:46] VITALS: BP 110/65; PULSE 103; RESP 16; O2SAT 100
[2023-08-22 20:52] LABS: Alanine Aminotransferase < 5 U/L (0-33); Albumin Level 4.1 g/dL (3.5-5.2); Alkaline Phosphatase 57 U/L (35-105); Anion Gap 14.3 (5-19); Aspartate Amino Transferase 13 U/L (0-32); Blood Urea Nitrogen 24 mg/dL (8-23); Carbon Dioxide 22 mmol/L (22-29); Chloride 112 mmol/L (98-107); Globulin 2.5 g/dL (1.3-4.6); Glomerular Filtration Rate 49.8 mL/min (90-130); Glucose 130 mg/dL (65-115); Osmolality Calculated 304 mOsm/kg (285-295); Potassium 4.3 mmol/L (3.5-5.1); Sodium 144 mmol/L (136-145); Total Bilirubin 0.4 mg/dL (0.15-1.2); Total Protein 6.6 g/dL (6.6-8.7)
[2023-08-22 20:55] LABS: Creatinine Clr Calc Pharmacy 54.5774
--- NOTE | 2023-08-22 21:17 | PC.NURSE ---
this nurse informed daughter and son on pts status.
[2023-08-22 21:22] LABS: Add Urine Microscopic? YES; Bilirubin Urine Neg (Negative); Blood Urine Neg (Negative); Glucose Urine UA Norm (Normal); Ketones Urine 1+ (Negative); Leukocyte Esterase Urine 1+ (Negative); Nitrate Urine Positive (Negative); Protein Urine Neg (Negative); Specific Gravity, Urine 1.015 (1.005-1.030); Urine Appearance SL Hazy (CLEAR); Urine Color Yellow (Yellow); Urobilinogen Urine 1 mg/dL (Negative); pH Urine 6 (5-7)
[2023-08-22 21:23] LABS: Add Urine Culture? Yes; Bacteria Urine 4+ /hpf; RBC Urine 0-4 /hpf (0-2); Squamous Epithelial Cell Urine 0-4 /hpf (0-5); WBC Urine 55-80 /hpf (0-5)
[2023-08-22] MEDS: nitrofurantoin SR (BID) 100 mg Capsule PO (21:50)
--- NOTE | 2023-08-22 22:15 | PC.NURSE ---
[facility] called to transport pt back to [facility]. pt is 2nd in line for transfer and it will be awhile before they can transport.
[2023-08-22 22:26] VITALS: BP 125/72; PULSE 102; RESP 16; O2SAT 98
--- NOTE | 2023-08-23 00:01 | PC.NURSE ---
report given to [facility]
== END 2023-08-23 00:01 | disposition home or self-care (01) ==
PROVIDERS: Emergency Provider Emergency Medicine; PCP Family Medicine
DX: N39.0 Urinary tract infection, site not specified (principal); G45.9 Transient cerebral ischemic attack, unspecified; Z79.82 Long term (current) use of aspirin; Z87.891 Personal history of nicotine dependence; N18.30 Chronic kidney disease, stage 3 unspecified; Z85.850 Personal history of malignant neoplasm of thyroid
CPT/HCPCS: 51701; 70450; 71045; 80053; 81001; 85025; 87077; 87086; 87186; 93005; 99285

== ENCOUNTER 2023-10-17 10:17 | Emergency (ER) | payer MEDICARE, MEDICAID, SELFPAY ==
[2023-10-17 10:23] VITALS: BP 122/73; PULSE 96; RESP 18; TEMP 36.8; O2SAT 98; BMI 21.9
--- NOTE | 2023-10-17 10:37 | W.ED.NEUROSD ---
HPI - Neuro Symptoms/Deficit General: Chief Complaint: Neuro Symptoms/Deficit Stated Complaint: Stroke symptoms, dr stearns sent Time Seen by Provider: 10/17/23 10:29 Source: patient Mode of arrival: wheelchair History of Present Illness: 63-year-old female who had a stroke earlier this year about 3 to 4 months ago significant left-sided deficits with contracture of the left thigh it is left her severely incapacitated now she lives at a senior living she went to see neurology today the transport person reported that she had significant worsening of her from her baseline and she was referred to the emergency room for further evaluation. Patient is poorly verbal we will contact the senior living they reported that she was about at her baseline that they have seen over the last couple of months. No reported fever sweats or chills Dr. Stearns had seen her and was concerned that she may have further complicating issues referred to the emergency room for further evaluation Onset (ago): unknown Timing confirmed by: caregiver Quality: weak Relieving factors: none Exacerbating factors: none Associated symptoms: Deny chest pain, cough, diaphoresis, fevers/chills, headache(s), anorexia, malaise, nausea, seizures, short of breath, syncope, tingling, vertigo, vomiting or weakness Treatments Prior to Arrival: none Review of Systems Const: Denies: malaise or diaphoresis Card: Denies: chest pain or syncope Resp: Denies: dyspnea GI: Denies: nausea or vomiting : Denies: dysuria, urinary frequency or urinary urgency Musc: Denies: neck pain or back pain Skin/Breast: Denies: rash Neuro: Denies: headache(s) or vertigo [facility] ED PFSH: Medical History Chronic headache Psychiatric care Acquired hypothyroidism History of thyroid cancer Wedge compression fracture of L1 vertebra 10% anterior wedge CKD (chronic kidney disease) stage 3, GFR 30-59 ml/min Hiatal hernia Umbilical hernia Surgical History History of placement of ear tubes left History of bunionectomy of both great toes History of release of tendon left ulnar nerve History of thyroidectomy History of hysterectomy for endometriosis, still has ovaries Family History Mother CAD (coronary artery disease) Diabetes Father Diabetes Dementia Grandfather Cancer stomach Grandfather Cancer colon Daughter Hypertension Social History Smoking and tobacco/nicotine status: former use of tobacco/nicotine Quit status (tobacco/nicotine): has quit using Year quit tobacco: sep 2022 Former quit date comment: 100 pack year history - 2ppd x 50 years Alcohol intake: current Alcohol intake frequency: holidays/special occasions only Household members: family Marital status: / Number of children: 2 Number of grandchildren: 4 Current occupational status: disabled Agree to transfusion: Yes Physical Exam Const: COMMON NORMALS: no acute distress GENERAL APPEARANCE: cooperative and comfortable ORIENTATION/CONSCIOUSNESS: Yes awake, Yes oriented to person, Yes oriented to place and Yes oriented to time HENMT: COMMON NORMALS: normocephalic, atraumatic and hearing grossly normal bilaterally HEAD & SCALP: normocephalic and atraumatic Resp: COMMON NORMALS: normal respiratory effort, No retractions, No use of accessory muscles and clear to auscultation bilaterally AUSCULTATION: clear to auscultation bilaterally Cardio: COMMON NORMALS: regular rate, regular rhythm and No murmurs present (Cardio) RATE: regular rate RHYTHM: regular rhythm GI: COMMON NORMALS: Soft to palpation and No hepatosplenomegaly present AUSCULTATION: Yes normoactive bowel sounds PALPATION: Yes Soft to palpation, No Tenderness to palpation present (GI), No Guarding due to palpation present (GI) and Yes No hepatosplenomegaly present Extremity: COMMON NORMALS: normal to inspection, capillary refill normal, no clubbing, cyanosis or edema, no calf tenderness and no pedal edema Neuro: SENSORIUM/ORIENTATION: Yes oriented to person, Yes oriented to place and Yes oriented to time Skin: COMMON NORMALS: no rashes or lesions noted GENERAL SKIN EXAM: no rashes or lesions noted Course Vital Signs: Vital signs: Vital Signs Temperature 98.3 F 10/17/23 10:23 Pulse Rate 96 10/17/23 10:23 Respiratory Rate 18 10/17/23 10:23 Blood Pressure 122/73 10/17/23 10:23 Pulse Oximetry 98 10/17/23 10:23 Oxygen Delivery Me thod Room Air 10/17/23 10:23 MDM - Neuro Symptoms/Deficit Medical Decision Making Reviewed lab findings patient does have cystitis CT does not show anything new or acute patient does have neurologic deficits but will recontact the senior living there is nothing significant or new she has some dependent edema in the right arm but otherwise no other findings. Will discharge patient home treat the cystitis. Caregiver agreed that she is at her baseline at this point. Medical Records I reviewed the patient's medical records. Lab Data I reviewed the patient's lab results. 10/17/23 11:15 10/17/23 12:54 Laboratory Results WBC 6.15 10^3/uL (3.29-11.43) 10/17/23 11:15 RBC 5.09 10^6/uL (3.85-5.65) 10/17/23 11:15 Hgb 15.50 g/dL (11.27-16.99) 10/17/23 11:15 Hct 47.1 % (36-47) H 10/17/23 11:15 MCV 92.5 fl (85-98) 10/17/23 11:15 MCH 30.5 pg (27-33) 10/17/23 11:15 MCHC 32.9 g/dL (30-55) 10/17/23 11:15 RDW 13.3 % (12.1-15.1) 10/17/23 11:15 Plt Count 147 10^3/cmm (157-399) L 10/17/23 11:15 MPV 10.9 fL (7.4-10.4) H 10/17/23 11:15 Neut % (Auto) 69.5 % 10/17/23 11:15 Lymph % (Auto) 22.6 % 10/17/23 11:15 [place] % (Auto) 5.7 % 10/17/23 11:15 Eos % (Auto) 0.5 % 10/17/23 11:15 Baso % (Auto) 0.7 % 10/17/23 11:15 Neut # (Auto) 4.28 10^3/uL (1.8-7.7) 10/17/23 11:15 Lymph # (Auto) 1.4 10^3/uL (0.8-4.8) 10/17/23 11:15 [place] # (Auto) 0.4 10^3/uL (0.2-0.9) 10/17/23 11:15 Eos # (Auto) 0.0 10^3/uL (0.0-0.8) 10/17/23 11:15 Baso # (Auto) 0.0 10^3/uL (0.0-0.1) 10/17/23 11:15 Nucleated RBC % (auto) 0 % 10/17/23 11:15 Nucleated RBCs # 0.0 /100WBC 10/17/23 11:15 Sodium 136 mmol/L (136-145) 10/17/23 12:54 Potassium 3.9 mmol/L (3.5-5.1) 10/17/23 12:54 Chloride 106 mmol/L (98-107) 10/17/23 12:54 Carbon Dioxide 19 mmol/L (22-29) L 10/17/23 12:54 Anion Gap 14.9 (5-19) 10/17/23 12:54 BUN 15 mg/dL (8-23) 10/17/23 12:54 Creatinine 1.1 mg/dL (0.5-0.9) H 10/17/23 12:54 GFR Calculation 49.8 mL/min (90-130) L 10/17/23 12:54 Glucose 82 mg/dL (65-115) 10/17/23 12:54 Calculated Osmolality 282 mOsm/kg (285-295) L 10/17/23 12:54 Calcium 8.6 mg/dL (8.5-10.5) 10/17/23 12:54 Total Bilirubin 0.4 mg/dL (0.15-1.2) 10/17/23 12:54 AST 16 U/L (0-32) 10/17/23 12:54 ALT 9 U/L (0-33) 10/17/23 12:54 Alkaline Phosphatase 47 U/L (35-105) 10/17/23 12:54 Total Protein 6.4 g/dL (6.6-8.7) L 10/17/23 12:54 Albumin 3.4 g/dL (3.5-5.2) L 10/17/23 12:54 Globulin 3.0 g/dL (1.3-4.6) 10/17/23 12:54 Urine Color Yellow (Yellow) 10/17/23 12:13 Urine Appearance Cloudy (CLEAR) A 10/17/23 12:13 Urine pH 7 (5-7) 10/17/23 12:13 Ur Specific [place] 1.015 (1.005-1.030) 10/17/23 12:13 Urine Protein 1+ (Negative) H 10/17/23 12:13 Urine Glucose (UA) Norm (Normal) 10/17/23 12:13 Urine Ketones 1+ (Negative) H 10/17/23 12:13 Urine Blood 2+ (Negative) H 10/17/23 12:13 Urine Nitrate Positive (Negative) H 10/17/23 12:13 Urine Bilirubin 1+ (Negative) H 10/17/23 12:13 Urine Urobilinogen Norm mg/dL (Negative) 10/17/23 12:13 Ur Leukocyte Esterase 2+ (Negative) H 10/17/23 12:13 Urine RBC 0-4 /hpf (0-2) H 10/17/23 12:13 Urine WBC 25-40 /hpf (0-5) H 10/17/23 12:13 Ur Squamous Epith Cells Rare /hpf (0-5) 10/17/23 12:13 Amorphous Sediment Not Reportable 10/17/23 12:13 Urine Bacteria 2+ /hpf (NONE) H 10/17/23 12:13 Urine Mucus Trace /hpf 10/17/23 12:13 Digoxin 0.3 ng/mL (0.6-1.2) L 10/17/23 12:54 All radiology interpretation(s) finalized by discharge Discharge Plan Discharge Patient Disposition: Home Clinical Impression: Cystitis, Memory deficit due to and not concurrent with cerebrovascular accident (CVA), Hx of arterial ischemic stroke Condition: Stable Prescriptions: New Macrobid 100 mg capsule 100 mg PO BID 7 Days Qty: 14 0RF Rx Instructions: must administer with a meal/food No Action aspirin 81 mg tablet,delayed release (DR/EC) 81 mg PO QAM digoxin 125 mcg (0.125 mg) tablet 125 mcg PO DAILY polyethylene glycol 3350 [Miralax] 17 gram powder in packet 17 g PO DAILY duloxetine 60 mg capsule,delayed release(DR/EC) 60 mg PO DAILY bupropion HCl 150 mg tablet extended release 24 hr 150 mg PO DAILY megestrol 400 mg/10 mL (40 mg/mL) suspension 40 mg PO BID gabapentin 100 mg capsule 100 mg PO TID carbidopa-levodopa 25-100 mg tablet 1 tab PO QID prazosin 5 mg capsule 5 mg PO QPM mirtazapine 30 mg tablet 30 mg PO BEDTIME (DME) bath chair See Rx Instructions .Route .MEDSUPPLY Qty: 1 0RF Rx Instructions: use while bathing. (DME) cane Device See Rx Instructions .Route Qty: 1 0RF Rx Instructions: four pronged cane famotidine 40 mg tablet 40 mg PO BID Qty: 180 0RF (DME) walker See Rx Instructions .Route .MEDSUPPLY Qty: 1 0RF Rx Instructions: As directed potassium gluconate 595 mg (99 mg) Tablet 595 mg PO QAM oxybutynin chloride 10 mg tablet extended release 24hr 10 mg PO QAM donepezil 10 mg tablet 10 mg PO QAM diclofenac sodium 75 mg tablet,delayed release (DR/EC) 75 mg PO BID PRN (Reason: Pain) levothyroxine 125 mcg tablet 125 mcg PO QAM Biofreeze 0.2-3.5 % Gel 1 applic TOPICAL DAILY PRN (Reason: Pain) Rx Instructions: rub in gently and completely pravastatin 20 mg tablet 20 mg PO QPM Discharge Orders: Discharge ED (Routine); Ordered 10/17/23 Ordered By: Armando Alonso Referrals: Chyna Mccray MD [Primary Care Provider] - Discharge Diet: Usual diet Discharge Activity: Resume usual activity Patient Instructions: Opioid Safety, Pain Management Activity Restrictions/Additional Instructions: Thank you for choosing [facility] for your healthcare needs today. Please realize this is an emergency room and that we are providing you with a medical screening exam and this may not be complete and all inclusive of all the testing and or work up that you may need to determine your ailment or severity of your illness. It is very important that you follow up as instructed or that you return to the Emergency Department should you have concerns or if your condition changes or worsens in any way. You are seen today for increased weakness. Lab testing shows a cystitis you are given a shot of antibiotics here and was started on oral antibiotics tomorrow Coding Level of Care Code ED [employer] for Supriya Durand
--- NOTE | 2023-10-17 10:48 | XR_ITS ---
WS: [id number] Portable AP upright chest, 10/17/2023 Clinical Data: dyspnea/cough Comparison: Portable chest, 08/22/2023 Findings: No nodules, masses or effusions are seen. The heart is normal. The pulmonary vascularity is not increased. No pneumonia or pneumothorax is seen. The aortic arch and descending thoracic aorta s how tortuosity. There are monitor leads on the chest wall. Impression: Atherosclerosis.
--- NOTE | 2023-10-17 10:48 | CT_ITS ---
WS: [id number] CT HEAD NONCONTRAST HISTORY: Right-sided weakness TECHNIQUE: Contiguous axial imaging performed through the brain in 2.5 mm imaging. Bone and soft tiss ue windows. Sagittal and coronal reformats reviewed. All CT scans at [facility] use at least one of these dose optimization techniques: automated exposure control; mA and/or kV adjustment per pa tient size (includes targeted exams where dose is matched to clinical indication); or iterative recon struction. DLP: 1103.48 mGy.cm COMPARISON: 08/22/2023 No acute intracranial hemorrhage, midline shift or mass effect. Severe bilateral atrophy with small vessel ischemic disease. Mild cerebellar atrophy. Ventricles: Ventricles and extra-axial spaces are prominent on the basis of atrophy. No inferior displacement of the cerebellar tonsils. Paranasal sinuses: As visualized are clear. Mastoid air cells: Well pneumatized. Calvarium and scalp: Skull is intact with no soft tissue edema or swelling. IMPRESSION: 1. No acute intracranial hemorrhage or edema. 2. Advanced small vessel ischemic disease and atrophy. Similar to the prior study. No new infarct. 3. Ventriculomegaly. On the basis of atrophy. No interval change.
[2023-10-17 11:49] LABS: Basophils % 0.7 %; Eosinophils % 0.5 %; Hematocrit 47.1 % (36-47); Lymphocytes # 1.4 10^3/uL (0.8-4.8); Lymphocytes % 22.6 %; Mean Corpuscular HGB Conc 32.9 g/dL (30-55); Mean Corpuscular Hemoglobin 30.5 pg (27-33); Mean Corpuscular Volume 92.5 fl (85-98); Mean Platelet Volume 10.9 fL (7.4-10.4); Monocytes # 0.4 10^3/uL (0.2-0.9); Monocytes % 5.7 %; Neutrophils # 4.28 10^3/uL (1.8-7.7); Neutrophils % 69.5 %; Nucleated Red Blood Cells % 0 %; Platelet Count 147 10^3/cmm (157-399); Red Blood Count 5.09 10^6/uL (3.85-5.65); Red Cell Distribution Width 13.3 % (12.1-15.1); White Blood Count 6.15 10^3/uL (3.29-11.43)
[2023-10-17 12:37] LABS: Glucose Urine UA Norm (Normal); Ketones Urine 1+ (Negative); Protein Urine 1+ (Negative); Specific Gravity, Urine 1.015 (1.005-1.030); Urine Appearance Cloudy (CLEAR); Urine Color Yellow (Yellow); pH Urine 7 (5-7)
[2023-10-17 12:38] LABS: Add Urine Culture? Yes; Add Urine Microscopic? YES; Bacteria Urine 2+ /hpf; Bilirubin Urine 1+ (Negative); Blood Urine 2+ (Negative); Leukocyte Esterase Urine 2+ (Negative); Mucus Urine TRACE /hpf; Nitrate Urine Positive (Negative); RBC Urine 0-4 /hpf (0-2); Squamous Epithelial Cell Urine RARE /hpf (0-5); Urobilinogen Urine Norm (Negative); WBC Urine 25-40 /hpf (0-5)
[2023-10-17 13:23] LABS: Alanine Aminotransferase 9 U/L (0-33); Albumin Level 3.4 g/dL (3.5-5.2); Alkaline Phosphatase 47 U/L (35-105); Anion Gap 14.9 (5-19); Aspartate Amino Transferase 16 U/L (0-32); Blood Urea Nitrogen 15 mg/dL (8-23); Calcium 8.6 mg/dL (8.5-10.5); Carbon Dioxide 19 mmol/L (22-29); Chloride 106 mmol/L (98-107); Glomerular Filtration Rate 49.8 mL/min (90-130); Glucose 82 mg/dL (65-115); Osmolality Calculated 282 mOsm/kg (285-295); Potassium 3.9 mmol/L (3.5-5.1); Sodium 136 mmol/L (136-145); Total Bilirubin 0.4 mg/dL (0.15-1.2); Total Protein 6.4 g/dL (6.6-8.7)
[2023-10-17 13:46] LABS: Digoxin 0.3 ng/mL (0.6-1.2)
== END 2023-10-17 13:38 | disposition home or self-care (01) ==
PROVIDERS: Emergency Provider Family Medicine; PCP Family Medicine
DX: N30.90 Cystitis, unspecified without hematuria (principal); I69.311 Memory deficit following cerebral infarction; Z85.850 Personal history of malignant neoplasm of thyroid; N18.30 Chronic kidney disease, stage 3 unspecified; Z87.891 Personal history of nicotine dependence; Z79.82 Long term (current) use of aspirin; F01.B0 Vascular dementia, moderate, without behavioral disturbance, psychotic disturbance, mood disturbance, and anxiety
CPT/HCPCS: 36415; 70450; 71045; 80053; 80162; 81001; 85025; 87077; 87086; 87186; 99205; 99284

== ENCOUNTER 2023-10-24 18:47 | Inpatient (IN) | payer MEDICARE, MEDICAID, SELFPAY ==
[2023-10-24] VITALS (28 sets, daily range): BP systolic 90–143; BP diastolic 56–96; PULSE 47–84; RESP 14–27; O2SAT 91–100
[2023-10-24] MEDS: vecuronium 10 mg SDV IVP (18:50)
[2023-10-24] MEDS: etomidate 2 mg/mL INJ SDV 10 mL 20 MG IVP (18:51)
--- NOTE | 2023-10-24 19:07 | ED_ITS ---
HPI - SOB/Dyspnea 2 General: Chief Complaint: Shortness of Breath/Dyspnea Stated Complaint: sob Time Seen by Provider: 10/24/23 18:50 Limitations: altered mental status History of Present Illness: HPI Narrative: Patient presented by EMS from [facility] in severe respiratory distress. She was eating she began to desat. The ambulance was called. The ambulance put her on 15 L per nonrebreather and had her sats drop all the way down to the 70s. Upon arrival here her sats was in the high 80s low 90s but patient was unresponsive. It was thought to intubate her due to her dropping of her sats. Upon looking in her mouth she had a food bolus obstructing her airway. Patient was intubated and sats julio to the high 90s. Patient is a full code. Review of Systems 2 General: Reports: ROS unobtainable due to medical condition and ROS unobtainable due to mental status PFSH ED 2 PFSH: Medical History Chronic headache Psychiatric care Acquired hypothyroidism History of thyroid cancer Wedge compression fracture of L1 vertebra 10% anterior wedge CKD (chronic kidney disease) stage 3, GFR 30-59 ml/min Hiatal hernia Umbilical hernia Surgical History History of placement of ear tubes left History of bunionectomy of both great toes History of release of tendon left ulnar nerve History of thyroidectomy History of hysterectomy for endometriosis, still has ovaries Family History Mother CAD (coronary artery disease) Diabetes Father Diabetes Dementia Grandfather Cancer stomach Grandfather Cancer colon Daughter Hypertension Social History Smoking and tobacco/nicotine status: former use of tobacco/nicotine Quit status (tobacco/nicotine): has quit using Year quit tobacco: sep 2022 Former quit date comment: 100 pack year history - 2ppd x 50 years Alcohol intake: current Alcohol intake frequency: holidays/special occasions only Household members: family Marital status: / Number of children: 2 Number of grandchildren: 4 Current occupational status: disabled Agree to transfusion: Yes Physical Exam 2 Const: OTHER: Unresponsive patient being bagged by EMS in apparent distress and hypoxic. HENMT: OTHER: Upon looking in the oral cavity with the intubating scope there was a food bolus noted over the airway. Neck/C-Spine: COMMON NORMALS: no JVD Chest: COMMONS NORMALS: normal inspection of the chest and normal palpation of entire chest wall Resp: OTHER: Respiratory failure small shallow breaths being assisted by but valve mask Cardio: COMMON NORMALS: no JVD, regular rate, regular rhythm, S1 normal heart sound present, S2 normal heart sound present, No gallops present (Cardio) and No clicks present (Cardio) RATE: regular rate RHYTHM: regular rhythm HEART SOUNDS: S1 normal heart sound present and S2 normal heart sound present GI: COMMON NORMALS: Normal to inspection, nondistended, normoactive bowel sounds present, Soft to palpation, non-tender, No hepatosplenomegaly present and no masses PALPATION: Yes Soft to palpation and Yes No hepatosplenomegaly present Procedures Intubation sedative: Etomidate Mg Given: 20 paralytic: Vecuronium Mg Given: 10 Laryngoscope: other (Videoscope) Assist Device Used: Bougie ET Tube Size: 8 Tube Secured Depth (cm): 23 Tube Secured Location: lips Tube Placement Confirmation: visualized tube passing through cords, equal breath sounds bilaterally and no breath sounds over epigastrium Patient Tolerated Procedure: well Intubation Complications: difficult intubation (Secondary to food bolus that was removed by Whalen forceps) Course 2 Vital Signs: Vital signs: Vital Signs Pulse Rate 59 L 10/24/23 20:40 Respiratory Rate 17 10/24/23 20:40 Blood Pressure 102/65 10/24/23 20:40 Pulse Oximetry 98 10/24/23 20:40 Oxygen Delivery Me thod Non-Rebreather 10/24/23 18:49 Oxygen Flow Rate 15 10/24/23 18:49 Fraction of Inspir ed Oxygen 60 10/24/23 19:26 MDM - SOB/Dyspnea Medical Decision Making Patient came by EMS in severe respiratory failure being ventilated via [id number] and unresponsive. Patient was immediately intubated with minimal difficulty after removing the food bolus lodged near the vocal cords. Patient immediately responded by increasing her oxygen saturation to 96 to 98% patient was then placed on a Versed drip for sedation. Lab work and EKG and chest x-ray was obtained anticipate patient going to the ICU. Patient was placed on azithromycin and Flagyl IV per aspiration risk. Patient was bolused with a liter normal saline, Dr. Crabtree was consulted who agreed to place patient in ICU for further evaluation and treatment. Differential Diagnosis Unlikely acute exacerbation of chronic obstructive airways disease, congestive heart failure, community acquired pneumonia, asthma with exacerbation or pulmonary embolism Medical Records I reviewed the patient's medical records. Lab Data I reviewed the patient's lab results. 10/24/23 19:54 10/24/23 19:54 Labs/Radiology: Radiology Impressions Chest X-Ray 10/24/23 19:09 IMPRESSION: 1. Endotracheal tube terminates 2.8cm above the joel. 2. Interval development of ill-defined opacities throughout the right lung and left mid/basal lung concerning for aspiration. Laboratory Results WBC 12.11 10^3/uL (3.29-11.43) H 10/24/23 19:54 RBC 4.47 10^6/uL (3.85-5.65) 10/24/23 19:54 Hgb 13.30 g/dL (11.27-16.99) 10/24/23 19:54 Hct 43.3 % (36-47) 10/24/23 19:54 MCV 96.9 fl (85-98) 10/24/23 19:54 MCH 29.8 pg (27-33) 10/24/23 19:54 MCHC 30.7 g/dL (30-55) 10/24/23 19:54 RDW 13.1 % (12.1-15.1) 10/24/23 19:54 Plt Count 216 10^3/cmm (157-399) 10/24/23 19:54 MPV 10.2 fL (7.4-10.4) 10/24/23 19:54 Neut % (Auto) 84.9 % 10/24/23 19:54 Lymph % (Auto) 9.2 % 10/24/23 19:54 [place] % (Auto) 2.7 % 10/24/23 19:54 Eos % (Auto) 0.4 % 10/24/23 19:54 Baso % (Auto) 0.7 % 10/24/23 19:54 Neut # (Auto) 10.27 10^3/uL (1.8-7.7) H 10/24/23 19:54 Lymph # (Auto) 1.1 10^3/uL (0.8-4.8) 10/24/23 19:54 [place] # (Auto) 0.3 10^3/uL (0.2-0.9) 10/24/23 19:54 Eos # (Auto) 0.1 10^3/uL (0.0-0.8) 10/24/23 19:54 Baso # (Auto) 0.1 10^3/uL (0.0-0.1) 10/24/23 19:54 Nucleated RBC % (auto) 0 % 10/24/23 19:54 Nucleated RBCs # 0.0 /100WBC 10/24/23 19:54 Specimen Type Arterial 10/24/23 19:32 Sample Site Brachial, right 10/24/23 19:32 ABG pH 7.23 (7.35-7.45) L 10/24/23 19:32 ABG pCO2 43.8 mmHg (35-45) 10/24/23 19:32 ABG pO2 94.7 mmHg (80.0-100.0) 10/24/23 19:32 ABG PO2/FiO2 Ratio 0 10/24/23 19:32 ABG HCO3 18.4 mmol/L (22-26) L 10/24/23 19:32 ABG O2 Saturation 96.0 10/24/23 19:32 ABG Base Excess -8.9 mmol/L (-2.0-2.0) L 10/24/23 19:32 Altaf Test N/a 10/24/23 19:32 A-a O2 Gradient 36.1 mmHg (5-10) H 10/24/23 19:32 Hematocrit 39.9 % (37-47) 10/24/23 19:32 Hgb O2 Saturation 95.4 % (95-100) 10/24/23 19:32 Carboxyhemoglobin 0.3 %THgb (0.4-20.1) L 10/24/23 19:32 Methemoglobin 0.4 % (0.4-1.5) 10/24/23 19:32 Total Hemoglobin 13.0 g/dL (12-16) 10/24/23 19:32 Sodium 143.0 mmol/L (131-143) 10/24/23 19:32 Potassium 3.3 mmol/L (3.5-5.0) L 10/24/23 19:32 Glucose 242.0 mg/dL (70-115) H 10/24/23 19:32 Ionized Calcium 1.2 mmol/L (1.1-1.4) 10/24/23 19:32 O2 Delivery Device Vent 10/24/23 19:32 FiO2 60.0 % 10/24/23 19:32 Tidal Volume 0.45 10/24/23 19:32 PEEP 6.0 cmH20 10/24/23 19:32 [place] Refinisher ID [email or web address] 10/24/23 19:32 Sodium 141 mmol/L (136-145) 10/24/23 19:54 Potassium 3.6 mmol/L (3.5-5.1) 10/24/23 19:54 Chloride 106 mmol/L (98-107) 10/24/23 19:54 Carbon Dioxide 16 mmol/L (22-29) L 10/24/23 19:54 Anion Gap 22.6 (5-19) H 10/24/23 19:54 BUN 18 mg/dL (8-23) 10/24/23 19:54 Creatinine 1.1 mg/dL (0.5-0.9) H 10/24/23 19:54 GFR Calculation 49.8 mL/min (90-130) L 10/24/23 19:54 Glucose 236 mg/dL (65-115) H 10/24/23 19:54 Calculated Osmolality 302 mOsm/kg (285-295) H 10/24/23 19:54 Lactic Acid 4.6 mmol/L (0.5-2.2) H* 10/24/23 19:54 Calcium 8.7 mg/dL (8.5-10.5) 10/24/23 19:54 Magnesium 2.3 mg/dL (1.7-2.3) 10/24/23 19:54 Total Bilirubin 0.5 mg/dL (0.15-1.2) 10/24/23 19:54 AST 22 U/L (0-32) 10/24/23 19:54 ALT < 5 U/L (0-33) 10/24/23 19:54 Alkaline Phosphatase 60 U/L (35-105) 10/24/23 19:54 Troponin T Baseline 64 ng/L (0-10) H 10/24/23 19:54 C-Reactive Protein 3.0 mg/L (0.0-4.9) 10/24/23 19:54 NT-Pro-B Natriuret Pep 316 pg/mL (0-125) H 10/24/23 19:54 Total Protein 6.6 g/dL (6.6-8.7) 10/24/23 19:54 Albumin 3.5 g/dL (3.5-5.2) 10/24/23 19:54 Globulin 3.1 g/dL (1.3-4.6) 10/24/23 19:54 Procalcitonin 0.04 ng/mL (0-0.5) 10/24/23 19:54 Urine Color Yellow (Yellow) 10/24/23 19:43 Urine Appearance Hazy (CLEAR) A 10/24/23 19:43 Urine pH 6 (5-7) 10/24/23 19:43 Ur Specific [place] 1.020 (1.005-1.030) 10/24/23 19:43 Urine Protein 1+ (Negative) H 10/24/23 19:43 Urine Glucose (UA) 1+ (Normal) H 10/24/23 19:43 Urine Ketones 1+ (Negative) H 10/24/23 19:43 Urine Blood 2+ (Negative) H 10/24/23 19:43 Urine Nitrate Positive (Negative) H 10/24/23 19:43 Urine Bilirubin Neg (Negative) 10/24/23 19:43 Urine Urobilinogen Neg mg/dL (Negative) 10/24/23 19:43 Ur Leukocyte Esterase Negative (Negative) 10/24/23 19:43 Urine RBC 10-15 /hpf (0-2) H 10/24/23 19:43 Urine WBC 5-10 /hpf (0-5) H 10/24/23 19:43 Ur Squamous Epith Cells None /hpf (0-5) 10/24/23 19:43 Ur Transition Epith Cell 5-10 /hpf 10/24/23 19:43 Amorphous Sediment 1+ /hpf 10/24/23 19:43 Urine Bacteria 3+ /hpf (NONE) H 10/24/23 19:43 Hyaline Casts 0-4 /lpf H 10/24/23 19:43 Urine Mucus 2+ /hpf 10/24/23 19:43 Digoxin 0.3 ng/mL (0.6-1.2) L 10/24/23 19:54 All radiology interpretation(s) finalized by discharge EKG Data EKG 1: I personally reviewed and interpreted this EKG as follows: EKG Interpretation Date: 10/24/23 EKG interpretation time: 19:52 Prior EKG tracings: not available for review Interpretation: EKG showed ventricular rate 67 bpm, TX interval 168, QRS duration 93, QTc of 424, sinus rhythm Discharge Plan Discharge Patient Disposition: Admitted As Inpatient Clinical Impression: Acute respiratory failure Qualifiers: Respiratory failure complication: unspecified whether with hypoxia or hypercapnia Qualified Code(s): J96.00 - Acute respiratory failure, unspecified whether with hypoxia or hypercapnia Choking due to food in larynx Qualifiers: Encounter type: initial encounter Qualified Code(s): T17.320A - Food in larynx causing asphyxiation, initial encounter Condition: Stable Coding Level of Care Code ED Manager Employment for [employer]
--- NOTE | 2023-10-24 19:09 | XRR_ITS ---
PROCEDURE INFORMATION: Exam: XR Chest Exam date and time: 10/24/2023 7:16 PM Age: 63 years old Clinical indication: Device placement; Ett placement (vent status); Additional info: Tube placement TECHNIQUE: Imaging protocol: Radiologic exam of the chest. Views: 1 view. COMPARISON: CR XR chest 1V portable [id number] 10/17/2023 11:18 AM FINDINGS: Tubes, catheters and devices: Endotracheal tube terminates 2.8cm above the joel. Enteric tube with tip outside the field of view, side port likely just distal to the gastroesophageal junction. Lungs: Interval development of ill-defined opacities throughout the right lung and left mid/basal lung. Pleural spaces: No pleural effusion. No pneumothorax. Heart/Mediastinum: Stable cardiomediastinal silhouette. Bones/joints: No acute osseous abnormality. XR/XR chest 1V portable [id number] IMPRESSION: 1. Endotracheal tube terminates 2.8cm above the joel. 2. Interval development of ill-defined opacities throughout the right lung and left mid/basal lung concerning for aspiration.
[2023-10-24 19:43] LABS: ABG PCO2 43.8 mmHg (35-45); ABG PH Result 7.23 (7.35-7.45); Alveolar-Arterial Oxygen Gradi 36.1 mmHg (5-10); Arterial Blood Gas Hematocrit 39.9 % (37-47); Base Excess ABG -8.9 mmol/L (-2.0-2.0); Blood Gas Sample Site Brachial, right; Blood Gas Sample Type Arterial; Blood Gas Tidal Volume 0.45; Carboxyhemoglobin 0.3 %THgb (0.4-20.1); HCO3 ABG 18.4 mmol/L (22-26); HGB O2 Sat 95.4 % (95-100); Ionized Calcium Level - ABG 1.2 mmol/L (1.1-1.4); Methemoglobin 0.4 % (0.4-1.5); Oxygen Device VENT; PO2 ABG 94.7 mmHg (80.0-100.0); PO2 FiO2 Ratio Arterial Blood 0; Potassium Level - ABG 3.3 mmol/L (3.5-5.0)
[2023-10-24] MEDS: propofol 1,000 MG/100 ML INJ 2.99 MG IV (19:50)
--- NOTE | 2023-10-24 19:52 | ECG_ITS ---
[facility] Test Date: 2023-10-24 Pat Name: Franchesca Huerta (Sandy) Department: Room: Gender: Female Weight Loss Physician: : 1960 Requested By: Dewey Clay Order Number: [id number] Maureen MD: Linwood Sosa M.D. Measurements Intervals [place] Rate: 67 P: 53 SD: 168 QRS: 51 QRSD: 93 T: 61 QT: 408 QTc: 433 Interpretive Statements SINUS RHYTHM Compared to ECG 08/22/2023 20:17:48 No significant changes Electronically Signed On 10-24-2023 22:57:37 SENIOR TELECOMMUNICATIONS SPECIALIST by Linwood Sosa M.D. [id number]
[2023-10-24 20:02] LABS: Basophils # 0.1 10^3/uL (0.0-0.1); Basophils % 0.7 %; Eosinophils # 0.1 10^3/uL (0.0-0.8); Eosinophils % 0.4 %; Hematocrit 43.3 % (36-47); Lymphocytes # 1.1 10^3/uL (0.8-4.8); Lymphocytes % 9.2 %; Mean Corpuscular HGB Conc 30.7 g/dL (30-55); Mean Corpuscular Hemoglobin 29.8 pg (27-33); Mean Corpuscular Volume 96.9 fl (85-98); Mean Platelet Volume 10.2 fL (7.4-10.4); Monocytes # 0.3 10^3/uL (0.2-0.9); Monocytes % 2.7 %; Neutrophils # 10.27 10^3/uL (1.8-7.7); Neutrophils % 84.9 %; Nucleated Red Blood Cells % 0 %; Platelet Count 216 10^3/cmm (157-399); Red Blood Count 4.47 10^6/uL (3.85-5.65); Red Cell Distribution Width 13.1 % (12.1-15.1); White Blood Count 12.11 10^3/uL (3.29-11.43)
[2023-10-24 20:22] LABS: Bilirubin Urine Neg (Negative); Blood Urine 2+ (Negative); Glucose Urine UA 1+ (Normal); Ketones Urine 1+ (Negative); Nitrate Urine Positive (Negative); Protein Urine 1+ (Negative); Urine Appearance Hazy (CLEAR); Urine Color Yellow (Yellow); pH Urine 6 (5-7)
[2023-10-24 20:22] LABS: Troponin(5th) Baseline 64 ng/L (0-10)
[2023-10-24 20:23] LABS: Add Urine Microscopic? YES; Amorphous Sediment Urine 1+ /hpf; Bacteria Urine 3+ /hpf; Leukocyte Esterase Urine Negative (Negative); Mucus Urine 2+ /hpf; Urobilinogen Urine Neg (Negative)
[2023-10-24 20:24] LABS: Add Urine Culture? Yes; Hyaline Casts Urine 0-4 /lpf
[2023-10-24] MEDS: sodium chloride 0.9% 1,000 ML 999 ML IV (20:26)
[2023-10-24 20:28] LABS: Lactic Sepsis W/Reflex 4.6 mmol/L (0.5-2.2)
[2023-10-24 20:35] LABS: NT Pro B Type Natriuretic Pept 316 pg/mL (0-125); Procalcitonin 0.04 ng/mL (0-0.5)
[2023-10-24 20:46] LABS: Alanine Aminotransferase < 5 U/L (0-33); Albumin Level 3.5 g/dL (3.5-5.2); Alkaline Phosphatase 60 U/L (35-105); Blood Urea Nitrogen 18 mg/dL (8-23); Calcium 8.7 mg/dL (8.5-10.5); Carbon Dioxide 16 mmol/L (22-29); Chloride 106 mmol/L (98-107); Globulin 3.1 g/dL (1.3-4.6); Glomerular Filtration Rate 49.8 mL/min (90-130); Glucose 236 mg/dL (65-115); Magnesium 2.3 mg/dL (1.7-2.3); Osmolality Calculated 302 mOsm/kg (285-295); Sodium 141 mmol/L (136-145); Total Bilirubin 0.5 mg/dL (0.15-1.2); Total Protein 6.6 g/dL (6.6-8.7)
[2023-10-24 20:47] LABS: Digoxin 0.3 ng/mL (0.6-1.2)
[2023-10-24 21:00] LABS: Anion Gap 22.6 (5-19); Aspartate Amino Transferase 22 U/L (0-32); Potassium 3.6 mmol/L (3.5-5.1)
[2023-10-24] MEDS: azithromycin 500 MG in sodium chloride 0.9% 250 ML 250 MG IV (21:30)
--- NOTE | 2023-10-24 21:36 | ECG_ITS ---
[facility] Test Date: 2023-10-24 Pat Name: Franchesca Huerta (Sandy) Department: Room: [facility] Gender: Female Bone Density Technician: : 1960 Requested By: Dewey Clay Order Number: [id number] Reading MD: Linwood Sosa M.D. Measurements Intervals [place] Rate: 68 P: 58 ME: 157 QRS: 37 QRSD: 94 T: 35 QT: 417 QTc: 447 Interpretive Statements SINUS RHYTHM LOW QRS VOLTAGE IN EXTREMITY LEADS [QRS DEFLECTION < 0.5 mV IN LIMB LEADS] Compared to ECG 10/24/2023 19:52:35 Low QRS voltage now present Electronically Signed On 10-24-2023 23:00:44 CASH POSTING CLERK by Linwood Sosa M.D. [id number]
[2023-10-24 21:46] LABS: Reflex Lactate Order REFLEX LACTIC ORDERD
--- NOTE | 2023-10-24 22:18 | P.HP_ITS ---
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 Patient has baseline left-sided weakness and per son's history may have some baseline dysphagia. She was brought into the emergency room today due to acute respiratory distress with started shortly after patient was eating. While she was in route via EMS her O2 sats was noted to be 75%. Patient was unresponsive upon being brought here. She was intubated upon ER arrival due to quick respiratory decompensation. During intubation she was found to have a large food bolus obstructing her airway. Patient was intubated, and obstructing piece of ham was removed and respiratory status improved thereafter. Chest x- ray taken postintubation shows ill-defined opacities throughout the right lung and the left basilar lung concerning for aspiration. Unable to get any further history at this time. Review of Systems 2 General: Reports: ROS unobtainable due to endotracheal tube Medications/Allergies Home Medications Medication Instructions Recorded Confirmed Last Taken Type bath chair #1 ea 01/27/23 10/17/23 Unknown Rx cane #1 ea 01/27/23 10/17/23 Unknown Rx famotidine 40 mg tablet 40 mg PO BID #180 tabs 03/24/23 10/17/23 10/17/23 Rx aspirin 81 mg tablet,delayed 81 mg PO QAM 04/01/23 10/17/23 10/17/23 History release walker #1 ea 04/13/23 10/17/23 Unknown Rx diclofenac sodium 75 mg 75 mg PO BID PRN Pain 04/19/23 10/17/23 04/19/23 History tablet,delayed release see pharmacy comment donepezil 10 mg tablet 10 mg PO QAM 04/19/23 10/17/23 10/17/23 History oxybutynin chloride 10 mg 10 mg PO QAM 04/19/23 10/17/23 10/16/23 History tablet,extended release 24 hr potassium gluconate 595 mg (99 mg) 595 mg PO QAM 04/19/23 10/17/23 10/17/23 History tablet bupropion HCl 150 mg 24 hr tablet, 150 mg PO DAILY 10/17/23 10/17/23 10/17/23 History extended release camphor-menthol 0.2 %-3.5 % 1 applic topical DAILY PRN Pain 10/17/23 10/17/23 Unknown History topical gel carbidopa 25 mg-levodopa 100 mg 1 tab PO QID 10/17/23 10/17/23 10/17/23 History tablet digoxin 125 mcg (0.125 mg) tablet 125 mcg PO DAILY 10/17/23 10/17/23 10/17/23 History duloxetine 60 mg capsule,delayed 60 mg PO DAILY 10/17/23 10/17/23 10/17/23 History release gabapentin 100 mg capsule 100 mg PO TID 10/17/23 10/17/23 10/17/23 History levothyroxine 125 mcg tablet 125 mcg PO QAM 10/17/23 10/17/23 10/17/23 History megestrol 400 mg/10 mL (40 mg/mL) 40 mg PO BID 10/17/23 10/17/23 10/17/23 History oral suspension mirtazapine 30 mg tablet 30 mg PO BEDTIME 10/17/23 10/17/23 10/16/23 History polyethylene glycol 3350 17 gram 17 g PO DAILY 10/17/23 10/17/23 10/17/23 History oral powder packet (Miralax) pravastatin 20 mg tablet 20 mg PO QPM 10/17/23 10/17/23 10/16/23 History prazosin 5 mg capsule 5 mg PO QPM 10/17/23 10/17/23 10/16/23 History Allergies Allergy/AdvReac Type Severity Reaction Status Date / Time ampicillin Allergy ADR-Itching Verified 10/24/23 19:06 cephalexin [From Keflex] Allergy itching Verified 10/24/23 19:06 haloperidol [From Haldol] Allergy felt like Verified 10/24/23 19:06 stroke Sulfa (Sulfonamide Allergy ADR-Itching Verified 10/24/23 19:06 Antibiotics) vicryl Allergy Unknown Unknown Uncoded 10/24/23 19:06 vicryl suture Allergy unknown Uncoded 10/24/23 19:06 PFSH Acute 2 PFSH: Medical History Chronic headache Psychiatric care Acquired hypothyroidism History of thyroid cancer Wedge compression fracture of L1 vertebra 10% anterior wedge CKD (chronic kidney disease) stage 3, GFR 30-59 ml/min Hiatal hernia Umbilical hernia Surgical History History of placement of ear tubes left History of bunionectomy of both great toes History of release of tendon left ulnar nerve History of thyroidectomy History of hysterectomy for endometriosis, still has ovaries Family History Mother CAD (coronary artery disease) Diabetes Father Diabetes Dementia Grandfather Cancer stomach Grandfather Cancer colon Daughter Hypertension Social History Smoking and tobacco/nicotine status: former use of tobacco/nicotine Quit status (tobacco/nicotine): has quit using Year quit tobacco: sep 2022 Former quit date comment: 100 pack year history - 2ppd x 50 years Alcohol intake: current Alcohol intake frequency: holidays/special occasions only Household members: family Marital status: / Number of children: 2 Number of grandchildren: 4 Current occupational status: disabled Agree to transfusion: Yes Vitals/I&O/Wt Last Vital Signs Pulse 71 10/24/23 21:40 Resp 19 H 10/24/23 21:40 BP 139/86 10/24/23 21:40 Pulse Ox 98 10/24/23 21:20 O2 Del Method Non-Rebreather 10/24/23 18:49 O2 Flow Rate 15 10/24/23 18:49 FiO2 60 10/24/23 19:26 Weight last 48 hrs Weight 99.79 kg Physical Exam 2 Narrative: General: intubated, sedated HEENT: PERRLA, pupils bilaterally equal and reactive, pallors not present Chest: Normal vesicular breath sounds, no added sounds, equal good air entry bilaterally CVS: S1-S2 regular, no murmurs, no tachycardia, no gallops, no rubs Abdomen: Soft, nontender, no organomegaly, bowel sounds present Neuro: intubated, sedated Urinary Catheter Management: Anthony: Cath Placed During This Visit: yes Urinary Catheter Date of Insertion: 10/24/23 Urinary Catheter Time of Insertion: 19:35 Data 10/24/23 19:54 10/24/23 19:54 Other Labs: Radiology Impressions Chest X-Ray 10/24/23 19:09 IMPRESSION: 1. Endotracheal tube terminates 2.8cm above the joel. 2. Interval development of ill-defined opacities throughout the right lung and left mid/basal lung concerning for aspiration. Laboratory Results WBC 12.11 10^3/uL (3.29-11.43) H 10/24/23 19:54 RBC 4.47 10^6/uL (3.85-5.65) 10/24/23 19:54 Hgb 13.30 g/dL (11.27-16.99) 10/24/23 19:54 Hct 43.3 % (36-47) 10/24/23 19:54 MCV 96.9 fl (85-98) 10/24/23 19:54 MCH 29.8 pg (27-33) 10/24/23 19:54 MCHC 30.7 g/dL (30-55) 10/24/23 19:54 RDW 13.1 % (12.1-15.1) 10/24/23 19:54 Plt Count 216 10^3/cmm (157-399) 10/24/23 19:54 MPV 10.2 fL (7.4-10.4) 10/24/23 19:54 Neut % (Auto) 84.9 % 10/24/23 19:54 Lymph % (Auto) 9.2 % 10/24/23 19:54 [place] % (Auto) 2.7 % 10/24/23 19:54 Eos % (Auto) 0.4 % 10/24/23 19:54 Baso % (Auto) 0.7 % 10/24/23 19:54 Neut # (Auto) 10.27 10^3/uL (1.8-7.7) H 10/24/23 19:54 Lymph # (Auto) 1.1 10^3/uL (0.8-4.8) 10/24/23 19:54 [place] # (Auto) 0.3 10^3/uL (0.2-0.9) 10/24/23 19:54 Eos # (Auto) 0.1 10^3/uL (0.0-0.8) 10/24/23 19:54 Baso # (Auto) 0.1 10^3/uL (0.0-0.1) 10/24/23 19:54 Nucleated RBC % (auto) 0 % 10/24/23 19:54 Nucleated RBCs # 0.0 /100WBC 10/24/23 19:54 Specimen Type Arterial 10/24/23 19:32 Sample Site Brachial, right 10/24/23 19:32 ABG pH 7.23 (7.35-7.45) L 10/24/23 19:32 ABG pCO2 43.8 mmHg (35-45) 10/24/23 19:32 ABG pO2 94.7 mmHg (80.0-100.0) 10/24/23 19:32 ABG PO2/FiO2 Ratio 0 10/24/23 19:32 ABG HCO3 18.4 mmol/L (22-26) L 10/24/23 19:32 ABG O2 Saturation 96.0 10/24/23 19:32 ABG Base Excess -8.9 mmol/L (-2.0-2.0) L 10/24/23 19:32 Altaf Test N/a 10/24/23 19:32 A-a O2 Gradient 36.1 mmHg (5-10) H 10/24/23 19:32 Hematocrit 39.9 % (37-47) 10/24/23 19:32 Hgb O2 Saturation 95.4 % (95-100) 10/24/23 19:32 Carboxyhemoglobin 0.3 %THgb (0.4-20.1) L 10/24/23 19:32 Methemoglobin 0.4 % (0.4-1.5) 10/24/23 19:32 Total Hemoglobin 13.0 g/dL (12-16) 10/24/23 19:32 Sodium 143.0 mmol/L (131-143) 10/24/23 19:32 Potassium 3.3 mmol/L (3.5-5.0) L 10/24/23 19:32 Glucose 242.0 mg/dL (70-115) H 10/24/23 19:32 Ionized Calcium 1.2 mmol/L (1.1-1.4) 10/24/23 19:32 O2 Delivery Device Vent 10/24/23 19:32 FiO2 60.0 % 10/24/23 19:32 Tidal Volume 0.45 10/24/23 19:32 PEEP 6.0 cmH20 10/24/23 19:32 Bank Teller ID [email or web address] 10/24/23 19:32 Sodium 141 mmol/L (136-145) 10/24/23 19:54 Potassium 3.6 mmol/L (3.5-5.1) 10/24/23 19:54 Chloride 106 mmol/L (98-107) 10/24/23 19:54 Carbon Dioxide 16 mmol/L (22-29) L 10/24/23 19:54 Anion Gap 22.6 (5-19) H 10/24/23 19:54 BUN 18 mg/dL (8-23) 10/24/23 19:54 Creatinine 1.1 mg/dL (0.5-0.9) H 10/24/23 19:54 GFR Calculation 49.8 mL/min (90-130) L 10/24/23 19:54 Glucose 236 mg/dL (65-115) H 10/24/23 19:54 Calculated Osmolality 302 mOsm/kg (285-295) H 10/24/23 19:54 Lactic Acid 4.6 mmol/L (0.5-2.2) H* 10/24/23 19:54 Lactic Acid (Sepsis) 2.4 mmol/L (0.5-2.2) H 10/24/23 22:56 Calcium 8.7 mg/dL (8.5-10.5) 10/24/23 19:54 Magnesium 2.3 mg/dL (1.7-2.3) 10/24/23 19:54 Total Bilirubin 0.5 mg/dL (0.15-1.2) 10/24/23 19:54 AST 22 U/L (0-32) 10/24/23 19:54 ALT < 5 U/L (0-33) 10/24/23 19:54 Alkaline Phosphatase 60 U/L (35-105) 10/24/23 19:54 Troponin T Baseline 64 ng/L (0-10) H 10/24/23 19:54 Troponin T 120 Minute 102.6 ng/L (0-10) H 10/24/23 22:56 Delta Troponin T 38.6 ABS# (0-10) H* 10/24/23 22:56 C-Reactive Protein 3.0 mg/L (0.0-4.9) 10/24/23 19:54 NT-Pro-B Natriuret Pep 316 pg/mL (0-125) H 10/24/23 19:54 Total Protein 6.6 g/dL (6.6-8.7) 10/24/23 19:54 Albumin 3.5 g/dL (3.5-5.2) 10/24/23 19:54 Globulin 3.1 g/dL (1.3-4.6) 10/24/23 19:54 Procalcitonin 0.04 ng/mL (0-0.5) 10/24/23 19:54 Urine Color Yellow (Yellow) 10/24/23 19:43 Urine Appearance Hazy (CLEAR) A 10/24/23 19:43 Urine pH 6 (5-7) 10/24/23 19:43 Ur Specific [place] 1.020 (1.005-1.030) 10/24/23 19:43 Urine Protein 1+ (Negative) H 10/24/23 19:43 Urine Glucose (UA) 1+ (Normal) H 10/24/23 19:43 Urine Ketones 1+ (Negative) H 10/24/23 19:43 Urine Blood 2+ (Negative) H 10/24/23 19:43 Urine Nitrate Positive (Negative) H 10/24/23 19:43 Urine Bilirubin Neg (Negative) 10/24/23 19:43 Urine Urobilinogen Neg mg/dL (Negative) 10/24/23 19:43 Ur Leukocyte Esterase Negative (Negative) 10/24/23 19:43 Urine RBC 10-15 /hpf (0-2) H 10/24/23 19:43 Urine WBC 5-10 /hpf (0-5) H 10/24/23 19:43 Ur Squamous Epith Cells None /hpf (0-5) 10/24/23 19:43 Ur Transition Epith Cell 5-10 /hpf 10/24/23 19:43 Amorphous Sediment 1+ /hpf 10/24/23 19:43 Urine Bacteria 3+ /hpf (NONE) H 10/24/23 19:43 Hyaline Casts 0-4 /lpf H 10/24/23 19:43 Urine Mucus 2+ /hpf 10/24/23 19:43 Digoxin 0.3 ng/mL (0.6-1.2) L 10/24/23 19:54 A&P Assessment and plan (1) Aspiration into airway: 63-year-old lady with a past medical history of CVAs with residual left hemiparesis and possibly ?dysphagia brought to the hospital today with aspiration of food into the airways leading to aspiration pneumonia as evidenced on chest x-ray and acute hypoxic respiratory failure as a result of this. Patient was emergently intubated in the emergency room and a piece of ham was removed from her airways by the ER physician. Currently remains intubated and sedated. Start antibiotic coverage with piperacillin/tazobactam empirically. Reviewed allergy to ampicillin as noted to be itching., Minor reaction not anaphylaxis. Repeat chest x-ray and ABG with a.m. labs. Obtain blood culture Additionally obtain COVID and influenza antigens given abnormalities on x-ray, presumably related to aspiration but cannot rule out acute viral illness given patient is coming from senior care. Check sputum culture and Gram stain. (2) Aspiration pneumonia due to food (regurgitated): (3) Hypoxic respiratory failure: As a result of aspiration. Airway cleared by ER physician. Currently intubated, FiO2 60% on vent, PEEP of 6. Check ABG in a.m. on current settings and reassess. (4) NSTEMI (non-ST elevated myocardial infarction): Baseline troponin at 64. 2-hour trending up to 102.6. Positive delta of 38.6 at 2 hours. Unknown if patient had any complaints of chest pain dyspnea palpitations prior to the events of today. Check echocardiogram Will obtain CT head. Unclear circumstances surrounding the aspiration event. Would want to rule out a hemorrhagic stroke before placing patient on anticoagulation. Will await the 6-hour delta trend, suspect that her elevated troponins may be related to type II WA currently. Plan DVT prophylaxis: Lovenox 40 PUD prophylaxis Protonix Full code Attestations 2 Medical Necessity Statement*: Greater than 2 midnight admission is anticipated for above defined care Critical Care Time: The high probability of a clinically significant, sudden or life threatening deterioration of the patient's [cardiovascular, respiratory, infectious] s ystem(s) required my full and direct attention, intervention and personal management. The critical care time is as shown. This time is in addition to time spent performing any reported procedures but includes the following: [x] Data and vital sign review and interpretation [x] Patient assessment, examination and intervention [x] Documentation [x] Medication orders and management Critical Care Time (min): 70 Coding Level of Care Code Critical Care >/= 30 minutes Diagnoses Aspiration into airway T17.908A Aspiration pneumonia due to food (regurgitated) J69.0 Hypoxic respiratory failure J96.91 NSTEMI (non-ST elevated myocardial infarction) I21.4
[2023-10-24 23:29] LABS: Lactic Acid level (Lactate) 2.4 mmol/L (0.5-2.2)
[2023-10-24 23:38] LABS: Troponin 5 2HR 102.6 ng/L (0-10); Troponin 5 2HR Delta 38.6 ABS# (0-10)
[2023-10-25] VITALS (61 sets, daily range): BP systolic 71–139; BP diastolic 46–82; PULSE 44–135; RESP 14–24; TEMP 34.7–36.9; O2SAT 92–100; BMI 23.6; BMI 23.8
--- NOTE | 2023-10-25 00:07 | USCV_ITS ---
Franchesca Huerta (Ada) Age: 63 Gender: F : 1960 Exam Date: 10/25/2023 01:48 Ordering Phys: Mickie Crabtree MD Technologist: YOEL Exam Location: [facility] [place] Indication: altered mental status, NSTEMI, hypoxia in 70s on room air, on ventilator in ICU-8 BP: 137 / 83 HR: 61 Rhythm: Sinus Technical Quality: Adequate MEASUREMENTS (Male / Female) Normal Values 2D ECHO LV Diastolic Diameter PLAX 3.9 cm 4.2 - 5.9 / 3.9 - 5.3 cm LV Systolic Diameter PLAX 3.0 cm IVS Diastolic Thickness 1.2 cm 0.6 - 1.0 / 0.6 - 0.9 cm IVS Systolic Thickness 1.7 cm LVPW Diastolic Thickness 1.4 cm 0.6 - 1.0 / 0.6 - 0.9 cm LVPW Systolic Thickness 1.2 cm LVOT Diameter 2.0 cm LV Ejection Fraction 2D Teich 45.6 % LV Ejection Fraction MOD 2C 44.5 % LV Ejection Fraction 2C AL 44.8 % LA Diameter 2.6 cm LA Width 2.6 cm LA Height 4.1 cm RA Width 2.8 cm RA Height 3.7 cm Aorta at Sinotubular Diameter 3.4 cm IVC Diameter 2.3 cm M-MODE Aortic Annulus Diameter 2.9 cm LA Ao Ratio MM 0.9 MV E Point Septal Separation 0.7 cm DOPPLER AV Peak Velocity 53.0 cm/s LVOT Peak Velocity 48.0 cm/s AV Area Cont Eq vti 2.9 cm squared AV Area Cont Eq pk 2.7 cm squared MV Area PHT 1.9 cm squared Mitral E to A Ratio 1.4 MV E' Velocity 27.5 cm/s Mitral E to MV E' Ratio 8.5 Mitral E to LV E' Lateral Ratio 10.9 Mitral E to LV E' Septal Ratio 7.0 TV Peak E Velocity 27.0 cm/s PV Peak Velocity 53.0 cm/s RV Acceleration Time 0.1 s RV Ejection Time 0.3 s RV AcT/ET 0.4 FINDINGS Left Ventricle Normal LV size with diminished ejection fraction of 45%. Mild diffuse hypokinesia of the ventricle, more so of the septum and the anteroseptal segments.mild left ventricular hypertrophy. Right Ventricle The right ventricle is normal in size and function. Right Atrium The right atrium is normal in size. Left Atrium The left atrium is normal in size. Mitral Valve Thickened mitral valve. Aortic Valve No gross abnormalities noted Tricuspid Valve No gross abnormalities noted Pulmonic Valve Pulmonic valve not well visualized. Pericardium Normal pericardium without effusion. Aorta Normal ascending aorta dimension. IVC The inferior vena cava appears normal. CONCLUSIONS Normal LV size with diminished ejection fraction of 45%. Mild diffuse hypokinesia of the ventricle, more so of the septum and the anteroseptal segments. Mild left ventricular hypertrophy. There is no pericardial effusion. There are no intracardiac masses. No similar previous studies are available for comparison Dr Bladimir Sahni MD FACC (Electronically Signed) Final Date: 25 October 2023 18:46 S
--- NOTE | 2023-10-25 00:07 | CTR_ITS ---
PROCEDURE INFORMATION: Exam: CT Head Without Contrast Exam date and time: 10/25/2023 9:50 AM Age: 63 years old Clinical indication: Other: Evalaute for hemorrhagic stroke TECHNIQUE: Imaging protocol: Computed tomography of the head without contrast. Radiation optimization: All CT scans at this facility use at least one of these dose optimization techniques: automated exposure control; mA and/or kV adjustment per patient size (includes targeted exams where dose is matched to clinical indication); or iterative reconstruction. REPORTING DATA: Count of CT and Cardiac NM exams in prior 12 months: This patient has received 3 known CTs and 0 known cardiac nuclear medicine studies in the 12 months prior to the current study. COMPARISON: CT head wo con* [id number] 10/17/2023 11:00 AM RADIATION DOSE METRICS: Total DLP (mGy-cm): 1154.44 FINDINGS: Brain: Severe periventricular small-vessel ischemia. Chronic area of infarction in the right frontal and parietal regions. No hemorrhagic transformation. Benign calcifications within the basal ganglia. Cerebral ventricles: Mild ventriculomegaly. Paranasal sinuses: Visualized sinuses are unremarkable. No fluid levels. Mastoid air cells: Visualized mastoid air cells are well aerated. Bones/joints: Unremarkable. No acute fracture. Soft tissues: Unremarkable. CT/CT head wo con* [id number] IMPRESSION: Severe periventricular small-vessel ischemic change. 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 No hemorrhagic transformation.
[2023-10-25] MEDS: piperacillin-tazobactam 3.375 GM in sodium chloride 0.9% (plus) 50 ML IV ×4 (00:23→22:34)
[2023-10-25] MEDS: fentaNYL 1,000 MCG/100 ML BAG 2.5 MCG IV (00:29)
[2023-10-25] MEDS: metroNIDAZOLE IV 500 MG/100 ML PREMIX 100 MG IV (00:34)
--- NOTE | 2023-10-25 01:15 | PC.NURSE ---
Temperature Patient's temperature 94.5F rectally. Jenaro huggar placed on patient; Dr. Crabtree notified and no new orders received.
[2023-10-25] MEDS: sodium chloride 0.9% 1,000 ML 75 ML IV ×2 (01:21→14:32)
--- NOTE | 2023-10-25 02:00 | PC.NURSE ---
Ulcer Stage 2 ulcer noted on sacrum upon admission; Dr. Crabtree notified and order received for zinc oxide ointment with an optifoam for wound care.
--- NOTE | 2023-10-25 03:00 | PC.NURSE ---
Levophed Patient's blood pressure maintaining soft with a MAP ranging from 59-66; Dr. Crabtree contacted and order received for levophed IV titratable to maintain MAP >65.
--- NOTE | 2023-10-25 03:00 | ECG_ITS ---
[facility] Test Date: 2023-10-25 Pat Name: Franchesca Huerta (Sandy) Department: Room: [facility] Gender: Female Press Secretary: : 1960 Requested By: Dewey Clay Order Number: [id number] Reading MD: Bladimir Sahni M.D. Measurements Intervals [place] Rate: 42 P: 65 AL: 159 QRS: 41 QRSD: 98 T: 64 QT: 489 QTc: 412 Interpretive Statements SINUS BRADYCARDIA MODERATE T-WAVE ABNORMALITY, CONSIDER INFERIOR ISCHEMIA [-0.1+ mV T WAVE IN II/aVF] Compared to ECG 10/24/2023 21:39:29 T-wave abnormality now present Possible ischemia now present Sinus rhythm no longer present Electronically Signed On 10-26-2023 0:33:17 [employer]ER HELPER by Bladimir Sahni M.D. [email or web address]
[2023-10-25 05:58] LABS: ABG PCO2 31.1 mmHg (35-45); Arterial Blood Gas Hematocrit 39.3 % (37-47); Base Excess ABG -4.8 mmol/L (-2.0-2.0); Blood Gas Allen Test Pos; Blood Gas Operator Identificat JB; Blood Gas Sample Site Radial, right; Blood Gas Sample Type Arterial; Blood Gas Tidal Volume 0.45; HCO3 ABG 19.1 mmol/L (22-26); Oxygen Device VENT; PO2 ABG 88.3 mmHg (80.0-100.0); PO2 FiO2 Ratio Arterial Blood 0
--- NOTE | 2023-10-25 06:00 | XRR_ITS ---
PROCEDURE INFORMATION: Exam: XR Chest Exam date and time: 10/25/2023 6:46 AM Age: 63 years old Clinical indication: Other: Follow up aspiration; Patient HX: F/u resp failure. Intubated. TECHNIQUE: Imaging protocol: Radiologic exam of the chest. Views: 1 view. COMPARISON: CR (CHEST, ) 10/24/2023 7:16 PM FINDINGS: Tubes, catheters and devices: Endotracheal tube and nasogastric tube in stable position. Lungs: Patchy airspace opacity in the right hemithorax. Linear opacity left lower lobe. Pleural spaces: Unremarkable. No pleural effusion. No pneumothorax. Heart/Mediastinum: Unremarkable. No cardiomegaly. Bones/joints: Unremarkable. XR/XR chest 1V portable [id number] IMPRESSION: 1. Patchy airspace opacities throughout the right hemithorax. Linear opacity left lower lobe. 2. Endotracheal tube and nasogastric tube are in stable position
[2023-10-25] MEDS: duloxetine 60 mg Capsule PO (08:37)
[2023-10-25] MEDS: buPROPion XL (24 HR) 150 mg Tablet PO (08:37)
[2023-10-25] MEDS: pantoprazole DR 40 mg Tablet PO (08:38)
[2023-10-25] MEDS: donepezil 5 MG Tablet 10 MG PO (08:38)
[2023-10-25] MEDS: aspirin 81 mg EC Tablet PO (08:38)
[2023-10-25] MEDS: gabapentin 100 mg Capsule PO ×3 (08:38→20:51)
[2023-10-25] MEDS: levothyroxine 125 mcg Tablet PO (08:38)
--- NOTE | 2023-10-25 08:42 | CTR_ITS ---
PROCEDURE INFORMATION: Exam: CT Chest Without Contrast; Diagnostic Exam date and time: 10/25/2023 9:53 AM Age: 63 years old Clinical indication: Shortness of breath; Patient HX: On vent; Additional info: Resp failure TECHNIQUE: Imaging protocol: Diagnostic computed tomography of the chest without contrast. Radiation optimization: All CT scans at this facility use at least one of these dose optimization techniques: automated exposure control; mA and/or kV adjustment per patient size (includes targeted exams where dose is matched to clinical indication); or iterative reconstruction. REPORTING DATA: Count of CT and Cardiac NM exams in prior 12 months: This patient has received 3 known CTs and 0 known cardiac nuclear medicine studies in the 12 months prior to the current study. COMPARISON: CR XR chest 1V portable [id number] 10/25/2023 6:46 AM RADIATION DOSE METRICS: Total DLP (mGy-cm): 433.39 FINDINGS: Tubes, catheters and devices: Endotracheal tube approximately 3.5 cm above the joel. An enteric tube is noted with the distal tip below the level of the diaphragm in the region of the stomach. Lungs: Biapical paraseptal emphysematous changes. Scattered dense consolidation throughout the lungs concerning for pneumonia. Dense bibasilar atelectasis. Pleural spaces: No pleural effusion. No pneumothorax. Heart: The heart is within normal limits for size. There is no evidence of pericardial abnormality. Coronary arteries: No significant coronary artery calcifications identified. Lymph nodes: The supraclavicular region appears normal. There are no enlarged lymph nodes in the axilla. There are no enlarged lymph nodes in the mediastinal or hilar regions. Vasculature: Unremarkable. No aortic aneurysm. Bones/joints: Multilevel degenerative changes in the spine. Soft tissues: Unremarkable. CT/CT chest wo con [id number] IMPRESSION: Scattered dense consolidation throughout the lungs concerning for pneumonia. COMMENTS: In the absence of a history or active diagnosis of lung cancer, it is recommended that this patient with emphysema be evaluated for enrollment in a low dose CT lung cancer screening program.
[2023-10-25] MEDS: propofol 1,000 MG/100 ML INJ 8.98 MG IV (09:29)
[2023-10-25 10:10] LABS: Influenza A by IFA negative (Negative); Influenza B by IFA negative (Negative); SARS Covid-2 Antigen negative (Negative)
[2023-10-25] MEDS: carbidopa-levodopa 25-100mg Tablet 1 EACH PO ×4 (10:59→20:51)
[2023-10-25] MEDS: enoxaparin 40 mg/0.4 mL Syringe SUBCUT (10:59)
--- NOTE | 2023-10-25 13:07 | P.PN_ITS ---
Subjective 2 Subjective: Patient was seen this morning, currently intubated, sedated on mechanical ventilation, 30% FiO2, normotensive, on propofol for sedation, currently off Levophed ? Had extensive family meeting with patient's sons at bedside, ? At baseline patient remains bedbound for the last 6 months she has had a rapid deterioration, she remains bedbound, in terms of conversation she can say a few words here and there, she requires assistance total of daily living, ? We had extensive discussion about her respiratory failure, likely secondary to aspiration aspiration pneumonia, with a large food bolus, ? She also has evidence of NSTEMI, likely sec to her respiratory failure ? I will were all discussed patient's goals of care, ? My concern would be overall she is on 30% FiO2, she has good ventilatory status, however my concern would be her mentation, which she wake up and follow commands, once weaned off sedation and family ember shake their head they feel that she would not follow commands, ? Then the concern would be is is that if we did a extubation, would be reintubated her, if her respiratory status worsens or it was at that point would we ease her pain and ease her suffering allow her to pass away comfortably, ? I also had an extensive discussion with the family about her CODE STATUS, she is listed as a full code, however if her heart were to stop and we were to do chest compressions I do not think that she would have a good quality of life, but she remains a full code ? So ultimately the question I posted family as her CODE STATUS, and if we were to optimize her for extubation possibly tomorrow, with her mentation and her poor quality of life at baseline, would be reintubate her I would recommend against it, as it would be associate with high risk of morbidity and mortality, and likely ventilator dependence for the rest of her life, however it is ultimately up to family, I will try to optimize her for hopefully extubation tomorrow I will speak to pulmonary tomorrow, ? They would like to have a family meeting, talks amongst themselves talk to family members and will come to decision ? I discussed with him currently the plan is to continue intubation, continue antibiotics optimize heart ventilatory status optimize her for hopeful extubation in the next 24 hours, they are agreeable -spoke to family again, discussed code s tatus, shared decision making, they voiced understanding, all question answered, proceeding with dnr/dni no chest compressions, I would not like her to be reintubated if she were to go into respiratory failure Vitals/I&O/Wt Last Vital Signs Temp 98.4 F 10/25/23 12:00 Pulse 56 L 10/25/23 10:07 Resp 14 10/25/23 12:41 BP 132/79 10/25/23 10:07 Pulse Ox 97 10/25/23 12:41 O2 Del Method Mechanical Ventilation 10/25/23 10:07 O2 Flow Rate 15 10/24/23 18:49 FiO2 30 10/25/23 12:41 10/24/23 10/25/23 10/25/23 22:59 06:59 14:59 Intake Total 160.816 / 160.816 139.184 / 139.184 Output Total 550 / 550 Balance -389.184 / -389.184 139.184 / 139.184 Weight last 48 hrs Weight 69 kg Weight 68.5 kg Weight 99.79 kg Physical Exam 2 Const: COMMON NORMALS: no acute distress Resp: COMMON NORMALS: normal respiratory effort, No retractions, No use of accessory muscles and clear to auscultation bilaterally AUSCULTATION: clear to auscultation bilaterally Cardio: COMMON NORMALS: regular rate, regular rhythm, S1 normal heart sound present and S2 normal heart sound present RATE: regular rate RHYTHM: r egular rhythm HEART SOUNDS: S1 normal heart sound present and S2 normal heart sound present GI: COMMON NORMALS: Normal to inspection, nondistended, normoactive bowel sounds present and non-tender Extremity: COMMON NORMALS: no pedal edema Urinary Catheter Management: Anthony: Cath Placed During This Visit: yes Reason for Continuing Indwelling Catheter: Accurate Measurement of Urinary Output in Critically Ill Patients Urinary Catheter Date of Insertion: 10/24/23 Urinary Catheter Time of Insertion: 19:35 Sepsis: Is patient septic: Yes Focused sepsis exam performed: Yes F ocused sepsis exam: DP PT pulses barely palpable, cap refill greater than 3 seconds, no mottling Date exam was performed: 10/25/23 Time exam was performed: 09:00 Data 10/24/23 19:54 10/24/23 19:54 A&P Assessment and plan (1) Aspiration into airway: (2) Aspiration pneumonia due to food (regurgitated): (3) Hypoxic respiratory failure: (4) NSTEMI (non-ST elevated myocardial infarction): (5) Septic shock: Plan Acute hypoxic respiratory failure ? Secondary to aspiration pneumonia, aspiration pneumonitis, aspiration of food bolus into airway -ct chest w/o contrast - CT/CT chest wo con [id number] IMPRESSION: Scattered dense consolidation throughout the lungs concerning for pneumonia. Plan -Food bolus was removed during extubation, ? Continue aggressive pulmonary toilet, ? Will discuss with pulmonary of possible bronchoscopy based on clinical progress, ? Continue Zosyn, ? Continue DuoNeb, ? Continue budesonide, ? Monitor respiratory status closely, ? Currently intubated, sedated on mechanical ventilation, ? Minimize FiO2, minimize tidal volume Septic shock, ? Secondary to aspiration pneumonia, ? Currently off Levophed, ? Monitor hemodynamics closely, NSTEMI, ? Type I versus type II, ? Continue aspirin, ? Cardiac echo ordered, ? Serial EKGs, telemetry monitoring Acute encephalopathy ? Secondary to as above - CT/CT head wo con* [id number] IMPRESSION: Severe periventricular small-vessel ischemic change. 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 No hemorrhagic transformation. UTI, continue Zosyn Baseline ? He is nonambulatory ? Requires assistance of continue daily living, ? In terms of mentation she can say few years here and there according to family numbers ? Over the last 6 months she has had a rapid decline, Her CT of the head did show as above, and has evidence of chronic area of infarction in the right frontoparietal region DVT prophylaxis: Lovenox 40 PUD prophylaxis Protonix DNR/DNI Attestations 2 Medical Necessity Statement*: Patient requires hospitalization for acute hypoxic respiratory failure, currently intubated, with aspiration into airway aspiration pneumonia aspiration pneumonitis, septic shock, NSTEMI Coding Level of Care Code Critical Care >/= 30 minutes Critical care time (in minutes): 60 The high probability of a clinically significant, sudden or life threatening deterioration, as referenced in this documentation, required my full and direct attention, intervention and personal management. The critical care time shown is in addition to time spent performing any reported separately billable procedures and includes the following: [x] Data and vital sign review and interpretation [x ] Patient assessment, examination and intervention [x] Medication orders and management [x] Patient/Family updates as able [x] Care Coordination and Documentation. Diagnoses Aspiration into airway T17.908A Aspiration pneumonia due to food (regurgitated) J69.0 Hypoxic respiratory failure J96.91 NSTEMI (non-ST elevated myocardial infarction) I21.4 Septic shock A41.9; R65.21
--- NOTE | 2023-10-25 14:27 | XRR_ITS ---
PROCEDURE INFORMATION: Exam: XR Chest Exam date and time: 10/25/2023 4:09 PM Age: 63 years old Clinical indication: Device placement; Picc TECHNIQUE: Imaging protocol: Radiologic exam of the chest. Views: 1 view. COMPARISON: CT chest [facility] [id number] 10/25/2023 9:53 AM FINDINGS: Right-sided central line tip projects over the mid SVC. Endotracheal tube approximately 3.5 cm above the joel. XR/XR chest 1V portable [id number] IMPRESSION: As above.
--- NOTE | 2023-10-25 15:00 | PC.NURSE ---
Double lumen PICC placed to right basilic vein. Referred to vascular access nurse for PICC placement due to need for vasopressors and multiple IV meds. Pt on vent and sedated. Consent obtained by bedside nurse from son prior to vascular access nurse arrival. 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 Right upper ext assessed with right basilic vein meauring 4.6 mm, straight, and apparent best choice for placement. Using sterile technique and MST, right basilic vein accessed x 1 stick. Mid-arm circumference measured 10 cm from right AC 26 cm. Trimmed cath 39 cm with 2 cm external length noted. CXR shows tip in mid-SVC, in good position for use per radiologist. Line secured with stat-lock. Insertion site covered with Biopatch and TSM. Report given to charge nurse, Alysha.
[2023-10-25] MEDS: atorvastatin 40 mg Tablet 20 MG PO (17:12)
[2023-10-25 17:48] LABS: Basophils # 0.1 10^3/uL (0.0-0.1); Basophils % 0.5 %; Eosinophils # 0.1 10^3/uL (0.0-0.8); Eosinophils % 0.4 %; Hematocrit 31.4 % (36-47); Lymphocytes # 1.4 10^3/uL (0.8-4.8); Lymphocytes % 12.4 %; Mean Corpuscular HGB Conc 32.5 g/dL (30-55); Mean Corpuscular Hemoglobin 30.8 pg (27-33); Mean Corpuscular Volume 94.9 fl (85-98); Mean Platelet Volume 10.8 fL (7.4-10.4); Monocytes # 0.3 10^3/uL (0.2-0.9); Monocytes % 2.7 %; Neutrophils # 9.43 10^3/uL (1.8-7.7); Neutrophils % 83.4 %; Nucleated Red Blood Cells % 0 %; Platelet Count 172 10^3/cmm (157-399); Red Blood Count 3.31 10^6/uL (3.85-5.65); Red Cell Distribution Width 13.5 % (12.1-15.1); White Blood Count 11.31 10^3/uL (3.29-11.43)
[2023-10-25 18:05] LABS: Alanine Aminotransferase < 5 U/L (0-33); Albumin Level 2.9 g/dL (3.5-5.2); Alkaline Phosphatase 44 U/L (35-105); Aspartate Amino Transferase 15 U/L (0-32); Blood Urea Nitrogen 19 mg/dL (8-23); Calcium 7.9 mg/dL (8.5-10.5); Carbon Dioxide 20 mmol/L (22-29); Chloride 112 mmol/L (98-107); Globulin 2.5 g/dL (1.3-4.6); Glomerular Filtration Rate 45.1 mL/min (90-130); Glucose 86 mg/dL (65-115); Osmolality Calculated 296 mOsm/kg (285-295); Sodium 142 mmol/L (136-145); Total Bilirubin 0.4 mg/dL (0.15-1.2); Total Protein 5.4 g/dL (6.6-8.7)
[2023-10-25 18:18] LABS: Anion Gap 14.1 (5-19); Potassium 4.1 mmol/L (3.5-5.1)
[2023-10-25 18:19] LABS: Troponin 5 6HR 137.5 ng/L (0-10); Troponin 5 6HR Delta 73.5 ng/L (0-12)
[2023-10-25 18:40] LABS: Lactate (Lactic Acid level) 1.4 mmol/L (0.5-2.2)
[2023-10-25] MEDS: heparin drip 25,000 UNIT/500 ML PREMIX 20 UNIT IV (19:24)
[2023-10-25] MEDS: prazosin 5 mg Capsule PO (20:51)
[2023-10-25] MEDS: mirtazapine 30 mg Tablet PO (20:51)
[2023-10-26] VITALS (57 sets, daily range): BP systolic 73–140; BP diastolic 37–65; PULSE 38–72; RESP 14–23; TEMP 36.6–36.9; O2SAT 91–100
[2023-10-26] MEDS: norepinephrine 4 MG/250 ML BAG 7.5 MG IV (00:27)
[2023-10-26 02:24] LABS: Partial Thromboplastin Time 152.6 SECONDS (23.9-36.7)
[2023-10-26] MEDS: sodium chloride 0.9% 1,000 ML 75 ML IV (02:37)
[2023-10-26 05:07] LABS: ABG PCO2 28.7 mmHg (35-45); ABG PH Result 7.42 (7.35-7.45); Arterial Blood Gas Hematocrit 34.8 % (37-47); Base Excess ABG -5.1 mmol/L (-2.0-2.0); Blood Gas Allen Test Pos; Blood Gas Operator Identificat JB; Blood Gas Sample Site Radial, right; Blood Gas Sample Type Arterial; Blood Gas Tidal Volume 0.45; HCO3 ABG 18.4 mmol/L (22-26); Oxygen Device VENT; PO2 FiO2 Ratio Arterial Blood 0
[2023-10-26] MEDS: levothyroxine 125 mcg Tablet PO (05:35)
[2023-10-26] MEDS: propofol 1,000 MG/100 ML INJ 2.99 MG IV (05:36)
[2023-10-26 06:18] LABS: INR 1.16 (0.8-1.2)
[2023-10-26 06:22] LABS: Lactate (Lactic Acid level) 1.6 mmol/L (0.5-2.2)
[2023-10-26 06:24] LABS: C Reactive Protein 55.6 mg/L (0.0-4.9); Phosphorus 2.8 mg/dL (2.5-4.5)
[2023-10-26 06:28] LABS: NT Pro B Type Natriuretic Pept 578 pg/mL (0-125); Procalcitonin 0.16 ng/mL (0-0.5)
[2023-10-26] MEDS: piperacillin-tazobactam 3.375 GM in sodium chloride 0.9% (plus) 50 ML IV ×3 (06:36→22:58)
[2023-10-26 06:40] LABS: Creatine Phosphokinase 258 U/L (26-192)
--- NOTE | 2023-10-26 07:00 | XRR_ITS ---
PROCEDURE INFORMATION: Exam: XR Chest Exam date and time: 10/26/2023 7:17 AM Age: 63 years old Clinical indication: Shortness of breath; Additional info: SOB TECHNIQUE: Imaging protocol: Radiologic exam of the chest. Views: 1 view. COMPARISON: CR XR chest 1V portable [id number] 10/25/2023 4:09 PM FINDINGS: Lungs: Bibasilar hypoventilatory changes, improved on the left. Pleural spaces: Unremarkable. No pleural effusion. No pneumothorax. Heart/Mediastinum: No change in the heart or mediastinum. Bones/joints: Unremarkable. Other findings: Stable life support lines. XR/XR chest 1V portable [id number] IMPRESSION: No acute findings. Little change. Improved aeration in the left lower lobe.
[2023-10-26] MEDS: aspirin 81 mg EC Tablet PO (09:02)
[2023-10-26] MEDS: FUROsemide 10 mg/mL SDV 4mL 40 MG IVP (09:02)
[2023-10-26] MEDS: donepezil 5 MG Tablet 10 MG PO (09:03)
[2023-10-26] MEDS: buPROPion XL (24 HR) 150 mg Tablet PO (09:03)
[2023-10-26] MEDS: pantoprazole DR 40 mg Tablet PO (09:03)
[2023-10-26] MEDS: duloxetine 60 mg Capsule PO (09:03)
[2023-10-26] MEDS: gabapentin 100 mg Capsule PO ×3 (09:03→21:01)
[2023-10-26] MEDS: digoxin 125 mcg Tablet PO (09:03)
[2023-10-26] MEDS: carbidopa-levodopa 25-100mg Tablet 1 EACH PO ×4 (09:03→21:01)
[2023-10-26 09:21] LABS: Basophils # 0.1 10^3/uL (0.0-0.1); Basophils % 0.7 %; Eosinophils # 0.1 10^3/uL (0.0-0.8); Eosinophils % 0.4 %; Lymphocytes # 1.8 10^3/uL (0.8-4.8); Lymphocytes % 15.7 %; Mean Corpuscular HGB Conc 32.6 g/dL (30-55); Mean Corpuscular Volume 95.1 fl (85-98); Mean Platelet Volume 11.1 fL (7.4-10.4); Monocytes # 0.4 10^3/uL (0.2-0.9); Monocytes % 3.9 %; Neutrophils # 8.82 10^3/uL (1.8-7.7); Neutrophils % 78.6 %; Nucleated Red Blood Cells % 0 %; Platelet Count 185 10^3/cmm (157-399); Red Blood Count 3.26 10^6/uL (3.85-5.65); Red Cell Distribution Width 13.6 % (12.1-15.1); White Blood Count 11.24 10^3/uL (3.29-11.43)
[2023-10-26 09:38] LABS: Anion Gap 14.1 (5-19); Blood Urea Nitrogen 17 mg/dL (8-23); Calcium 7.9 mg/dL (8.5-10.5); Carbon Dioxide 19 mmol/L (22-29); Chloride 113 mmol/L (98-107); Glomerular Filtration Rate 41.1 mL/min (90-130); Glucose 102 mg/dL (65-115); Osmolality Calculated 296 mOsm/kg (285-295); Potassium 4.1 mmol/L (3.5-5.1); Sodium 142 mmol/L (136-145)
[2023-10-26] MEDS: dexamethasone 10 mg/mL INJ 6 MG IVP (10:29)
--- NOTE | 2023-10-26 13:08 | P.PN_ITS ---
Subjective 2 Subjective: - Patient was seen this morning, ? Her troponin trend was positive overnight, echocardiogram showed diminished ejection fraction, heparin drip was started, ? She is on 30% FiO2 remains off pressors, ? She does withdraw from pain, does localize pain, has cough has a gag reflex ? Pupils equal round reactive to light, she does not track, she does not follow commands, she does awaken to her name, ? She has had good urine output looks a bit fluid overloaded, will give her dose of Lasix, ? I had a family meeting with patient's family at bedside, they are waiting on a family member to arrive on Tuesday before extubating, ? I had a discussion about the risks and benefits of extubation, currently respiratory khan she is on 30% FiO2 her ABGs look good, were taking the volume off of her, I did discuss her NSTEMI, elevated troponins, her diminished ejection fraction, ? Discussed with family it could be that she had a cardiac event that caused her to aspirate, or could admit her mentation, or with the trauma of the respiratory failure, the significant aspiration event and intubation, this resulted in stress-induced cardiomyopathy and her diminished ejection fraction, it is hard to say for now her medically managing, family does not want have any aggressive interventions ? The only significant thing holding up her extubation is her mentation, however at baseline as per family she has had poor level of cognitive functioning, at times she does not follow commands, ? Given that she had a significant aspiration event, and she had food boluses removed and she was emergently intubated there is a risk of posterior pharynx swelling, and erythema, which have started on Decadron 4, next?the ultimate question is that we will she maintain her airway after she is extubated I cannot 100% guarantee that she will but in the event that she does not, family wants her DNR/DNI however they do not want her to pass away before family over skin give their goodbyes, -Most the family numbers are coming from out of state and will be here by Tuesday, which is in about 36 hours, I think that is reasonable I can try to optimize her fluid status, decrease the risk of posterior pharynx welling with steroids, continue to monitor her ? After discussing the risk and benefits, they voiced understanding, all questions answered, agreed to proceed Vitals/I&O/Wt Last Vital Signs Temp 97.8 F 10/26/23 04:00 Pulse 58 L 10/26/23 10:00 Resp 14 10/26/23 11:18 BP 119/58 10/26/23 10:00 Pulse Ox 99 10/26/23 11:18 O2 Del Method Mechanical Ventilation 10/26/23 06:00 O2 Flow Rate 15 10/24/23 18:49 FiO2 30 10/26/23 11:18 10/25/23 10/26/23 10/26/23 22:59 06:59 14:59 Intake Total 210.914 / 8339.203 9144.978 / 2505.826 Output Total 400 / 400 200 / 600 Balance -189.086 / 938.848 966.978 / 1905.826 Weight last 48 hrs Weight 71.849 kg Weight 69 kg Weight 68.5 kg Weight 99.79 kg Physical Exam 2 Const: COMMON NORMALS: no acute distress ORIENTATION/CONSCIOUSNESS: Yes awake; not oriented to person, not oriented to place and not oriented to time Resp: COMMON NORMALS: normal respiratory effort, No retractions, No use of accessory muscles and clear to auscultation bilaterally AUSCULTATION: clear to auscultation bilaterally Cardio: COMMON NORMALS: regular rate, regular rhythm, S1 normal heart sound present and S2 normal heart sound present RATE: regular rate RHYTHM: r egular rhythm HEART SOUNDS: S1 normal heart sound present and S2 normal heart sound present GI: COMMON NORMALS: Normal to inspection, nondistended, normoactive bowel sounds present and non-tender Extremity: COMMON NORMALS: no pedal edema Neuro: SENSORIUM/ORIENTATION: No oriented to person, No oriented to place and No oriented to time Urinary Catheter Management: Anthony: Cath Placed During This Visit: yes Reason for Continuing Indwelling Catheter: Accurate Measurement of Urinary Output in Critically Ill Patients Urinary Catheter Date of Insertion: 10/24/23 Urinary Catheter Time of Insertion: 19:35 Data 10/26/23 08:58 10/26/23 08:58 Micro: Microbiology 10/24/23 23:05 Gram Stain - Final Sputum - Endotracheal Tube Aspirate Sputum Culture - Preliminary 10/24/23 19:43 Urine Culture - Preliminary Urine,Clean Catch Gram Negative Rods A&P Assessment and plan (1) Aspiration into airway: (2) Aspiration pneumonia due to food (regurgitated): (3) Hypoxic respiratory failure: (4) NSTEMI (non-ST elevated myocardial infarction): (5) Septic shock: Plan Acute hypoxic respiratory failure ? Secondary to aspiration pneumonia, aspiration pneumonitis, aspiration of food bolus into airway -ct chest w/o contrast - CT/CT chest wo con [id number] IMPRESSION: Scattered dense consolidation throughout the lungs concerning for pneumonia. Plan -Food bolus was removed during extubation, ? Continue aggressive pulmonary toilet, ? Continue Zosyn, ? Continue DuoNeb, ? Continue Decadron ? Continue budesonide, ? Monitor respiratory status closely, ? Currently intubated, sedated on mechanical ventilation, ?Minimize sedation, spontaneous breathing trial ? Minimize FiO2, minimize tidal volume ? Awaiting family numbers to arrive on Tuesday, before extubating Septic shock, following ? Secondary to aspiration pneumonia, ? Currently off Levophed, ? Monitor hemodynamics closely, NSTEMI, ? Type I versus type II, ? Continue aspirin, on heparin drip ? Cardiac echo Normal LV size with diminished ejection fraction of 45%. Mild diffuse hypokinesia of the ventricle, more so of the septum and the anteroseptal segments. Mild left ventricular hypertrophy. There is no pericardial effusion. There are no intracardiac masses. No similar previous studies are available for comparison ? Serial EKGs, telemetry monitoring Acute encephalopathy ? Secondary to as above ? At baseline she can sometimes say a few words here and there, but is not alert to place or time, requires assistance of all activities of daily living - CT/CT head wo con* [id number] IMPRESSION: Severe periventricular small-vessel ischemic change. 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 No hemorrhagic transformation. UTI, continue Zosyn Baseline ? He is nonambulatory ? Requires assistance of continue daily living, ? In terms of mentation she can say few years here and there according to family numbers ? Over the last 6 months she has had a rapid decline, Her CT of the head did show as above, and has evidence of chronic area of infarction in the right frontoparietal region DVT prophylaxis: Lovenox 40 PUD prophylaxis Protonix DNR/DNI Attestations 2 Medical Necessity Statement*: Patient requires hospitalization for acute respiratory failure, aspiration pneumonia cancer pneumonitis and septic shock, NSTEMI, UTI Coding Level of Care Code Critical Care >/= 30 minutes Critical care time (in minutes): 45 The high probability of a clinically significant, sudden or life threatening deterioration, as referenced in this documentation, required my full and direct attention, intervention and personal management. The critical care time shown is in addition to time spent performing any reported separately billable procedures and includes the following: [x] Data and vital sign review and interpretation [x ] Patient assessment, examination and intervention [x] Medication orders and management [x] Patient/Family updates as able [x] Care Coordination and Documentation. Diagnoses Aspiration into airway T17.908A Aspiration pneumonia due to food (regurgitated) J69.0 Hypoxic respiratory failure J96.91 NSTEMI (non-ST elevated myocardial infarction) I21.4 Septic shock A41.9; R65.21
--- NOTE | 2023-10-26 16:58 | PC.SOCIAL ---
IMM Updated Updated pt's son on IMM. No questions voiced. Provided pt a copy. Initialed, dated, & timed a copy & placed in chart.
[2023-10-26] MEDS: atorvastatin 40 mg Tablet 20 MG PO (17:02)
[2023-10-26] MEDS: mirtazapine 30 mg Tablet PO (21:01)
[2023-10-27] VITALS (30 sets, daily range): BP systolic 98–136; BP diastolic 56–78; PULSE 43–90; RESP 12–21; TEMP 36.8–37.2; O2SAT 91–100
[2023-10-27] MEDS: heparin drip 25,000 UNIT/500 ML PREMIX 19 UNIT IV (02:20)
[2023-10-27 03:43] LABS: Basophils # 0.1 10^3/uL (0.0-0.1); Basophils % 0.5 %; Eosinophils % 0.2 %; Hematocrit 30.9 % (36-47); Lymphocytes # 1.9 10^3/uL (0.8-4.8); Lymphocytes % 19.5 %; Mean Corpuscular HGB Conc 31.7 g/dL (30-55); Mean Corpuscular Volume 94.5 fl (85-98); Mean Platelet Volume 11.3 fL (7.4-10.4); Monocytes # 0.4 10^3/uL (0.2-0.9); Neutrophils # 7.44 10^3/uL (1.8-7.7); Neutrophils % 75.2 %; Nucleated Red Blood Cells % 0 %; Platelet Count 190 10^3/cmm (157-399); Red Blood Count 3.27 10^6/uL (3.85-5.65); Red Cell Distribution Width 13.5 % (12.1-15.1)
[2023-10-27 03:52] LABS: INR 1.15 (0.8-1.2)
[2023-10-27 04:01] LABS: C Reactive Protein 49.9 mg/L (0.0-4.9); Lactate (Lactic Acid level) 1.5 mmol/L (0.5-2.2); Phosphorus 3.8 mg/dL (2.5-4.5)
[2023-10-27 04:02] LABS: Alanine Aminotransferase < 5 U/L (0-33); Albumin Level 3.2 g/dL (3.5-5.2); Alkaline Phosphatase 52 U/L (35-105); Anion Gap 17.4 (5-19); Aspartate Amino Transferase 21 U/L (0-32); Blood Urea Nitrogen 18 mg/dL (8-23); Calcium 8.2 mg/dL (8.5-10.5); Carbon Dioxide 20 mmol/L (22-29); Chloride 108 mmol/L (98-107); Globulin 2.5 g/dL (1.3-4.6); Glomerular Filtration Rate 41.1 mL/min (90-130); Glucose 83 mg/dL (65-115); Osmolality Calculated 295 mOsm/kg (285-295); Potassium 3.4 mmol/L (3.5-5.1); Sodium 142 mmol/L (136-145); Total Bilirubin 0.6 mg/dL (0.15-1.2); Total Protein 5.7 g/dL (6.6-8.7)
[2023-10-27 04:13] LABS: NT Pro B Type Natriuretic Pept 893 pg/mL (0-125)
[2023-10-27 04:24] LABS: Creatine Phosphokinase 205 U/L (26-192)
[2023-10-27 05:11] LABS: ABG PCO2 26.4 mmHg (35-45); ABG PH Result 7.46 (7.35-7.45); Arterial Blood Gas Hematocrit 42.6 % (37-47); Base Excess ABG -3.5 mmol/L (-2.0-2.0); Blood Gas Allen Test Pos; Blood Gas Operator Identificat JB; Blood Gas Sample Site Radial, right; Blood Gas Sample Type Arterial; Blood Gas Tidal Volume 0.45; HCO3 ABG 18.8 mmol/L (22-26); Oxygen Device VENT; PO2 ABG 71.5 mmHg (80.0-100.0); PO2 FiO2 Ratio Arterial Blood 0
[2023-10-27] MEDS: levothyroxine 125 mcg Tablet PO (05:41)
[2023-10-27] MEDS: piperacillin-tazobactam 3.375 GM in sodium chloride 0.9% (plus) 50 ML IV ×3 (06:26→22:22)
--- NOTE | 2023-10-27 07:00 | XRR_ITS ---
PROCEDURE INFORMATION: Exam: XR Chest Exam date and time: 10/27/2023 8:22 AM Age: 63 years old Clinical indication: Shortness of breath; Additional info: SOB TECHNIQUE: Imaging protocol: Radiologic exam of the chest. Views: 1 view. COMPARISON: CR (CHEST, ) 10/26/2023 7:17 AM FINDINGS: Lungs: Improved aeration at the lung bases, only minimal atelectasis persists. Pleural spaces: Unremarkable. No pleural effusion. No pneumothorax. Heart/Mediastinum: Unremarkable. No cardiomegaly. Bones/joints: Unremarkable. Other findings: Stable life support lines. XR/XR chest 1V portable [id number] IMPRESSION: No acute findings.
[2023-10-27] MEDS: lidocaine 1% 5 ML in potassium chloride premix 100 ML 26.25 ML IV (08:43)
[2023-10-27] MEDS: gabapentin 100 mg Capsule PO ×2 (08:45→20:33)
[2023-10-27] MEDS: buPROPion XL (24 HR) 150 mg Tablet PO (08:45)
[2023-10-27] MEDS: aspirin 81 mg EC Tablet PO (08:45)
[2023-10-27] MEDS: carbidopa-levodopa 25-100mg Tablet 1 EACH PO ×3 (08:45→20:33)
[2023-10-27] MEDS: digoxin 125 mcg Tablet PO (08:45)
[2023-10-27] MEDS: donepezil 5 MG Tablet 10 MG PO (08:45)
[2023-10-27] MEDS: pantoprazole DR 40 mg Tablet PO (08:45)
[2023-10-27] MEDS: duloxetine 60 mg Capsule PO (08:45)
[2023-10-27] MEDS: dexamethasone 10 mg/mL INJ 6 MG IVP (09:58)
--- NOTE | 2023-10-27 10:36 | PC.NURSE ---
patient more alert than yesterday, able to lift head off bed and attempts to follow commands. Dr. Key spoke with family about Extubation. family approved, extubated to 3l nc per RT
[2023-10-27] MEDS: FUROsemide 10 mg/mL SDV 4mL 40 MG IVP (11:28)
[2023-10-27] MEDS: lanolin oint 7 gm 1 APPLIC TOPICAL (11:40)
--- NOTE | 2023-10-27 13:48 | P.PN_ITS ---
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 I spoke to patient's grandson at bedside spoke that her mentation has significantly improved, will start on spontaneous breathing trial, I would recommend for patient to be extubated later on today, I know that family is waiting on other family numbers and he tells me that this should be by this afternoon, I think she is in a do well after extubation, she has received steroids for her aspiration, and possible posterior pharynx swelling, I think by now the steroid steroids has helped and the swelling has gone down, in terms of her respiratory status she is doing very well on the ventilator, and I think that she meets all the criteria for extubation we will do a spontaneous breathing trial and see how she does by the later morning and plan of positive pulse ox and patient found is agreeable, I can present guarantee given her deconditioned state at baseline that she will do well after extubation, her respiratory status might worsen, but I know that at baseline she is a poor functional status, and she is DNR/DNI and they do not want her to be reintubated I feel that we have optimized her respiratory status, for extubation, and I think we should give her a trial of extubation as she has responded very well, after discussing the risk and benefits, they voiced understanding, all presents for, shared decision making, agreed to proceed with extubation, will continue to spot his breathing trial wean off all sedating medications, plan on extubation hopefully later on this morning I will give her 40 of IV Lasix, chest x-ray shows improved aeration both lungs, Vitals/I&O/Wt Last Vital Signs Temp 98.9 F 10/27/23 04:57 Pulse 62 10/27/23 13:00 Resp 21 H 10/27/23 13:00 BP 136/76 10/27/23 13:00 Pulse Ox 95 10/27/23 13:00 O2 Del Method Mechanical Ventilation 10/27/23 06:00 O2 Flow Rate 15 10/24/23 18:49 FiO2 30 10/27/23 09:58 10/26/23 10/27/23 10/27/23 22:59 06:59 14:59 Intake Total 499.333 / 549.333 155.134 / 704.467 Output Total 350 / 350 Balance 499.333 / 549.333 -194.866 / 354.467 Weight last 48 hrs Weight 69.354 kg Weight 71.849 kg Physical Exam 2 Const: COMMON NORMALS: no acute distress ORIENTATION/CONSCIOUSNESS: Yes awake and Yes oriented to person; not oriented to place and not oriented to time Resp: COMMON NORMALS: normal respiratory effort, No retractions, No use of accessory muscles and clear to auscultation bilaterally AUSCULTATION: clear to auscultation bilaterally Cardio: COMMON NORMALS: regular rate, regular rhythm, S1 normal heart sound present and S2 normal heart sound present RATE: regular rate RHYTHM: r egular rhythm HEART SOUNDS: S1 normal heart sound present and S2 normal heart sound present GI: COMMON NORMALS: Normal to inspection, nondistended, normoactive bowel sounds present and non-tender Extremity: COMMON NORMALS: no pedal edema Neuro: SENSORIUM/ORIENTATION: Yes oriented to person, No oriented to place and No oriented to time Psych: COMMON NORMALS: mental status grossly normal Urinary Catheter Management: Anthony: Cath Placed During This Visit: yes Reason for Continuing Indwelling Catheter: Accurate Measurement of Urinary Output in Critically Ill Patients Urinary Catheter Date of Insertion: 10/24/23 Urinary Catheter Time of Insertion: 19:35 Data 10/27/23 03:18 10/27/23 03:18 Micro: Microbiology 10/24/23 23:05 Gram Stain - Final Sputum - Endotracheal Tube Aspirate Sputum Culture - Final 10/24/23 19:43 Urine Culture - Final Urine,Clean Catch Escherichia coli A&P Assessment and plan (1) Aspiration into airway: (2) Aspiration pneumonia due to food (regurgitated): (3) Hypoxic respiratory failure: (4) NSTEMI (non-ST elevated myocardial infarction): (5) Septic shock: Plan Acute hypoxic respiratory failure ? Secondary to aspiration pneumonia, aspiration pneumonitis, aspiration of food bolus into airway -ct chest w/o contrast - CT/CT chest wo con [id number] IMPRESSION: Scattered dense consolidation throughout the lungs concerning for pneumonia. Plan -Food bolus was removed during extubation, ? Continue aggressive pulmonary toilet, ? Continue Zosyn, ? Continue DuoNeb, ? Continue Decadron ? Continue budesonide, ? Monitor respiratory status closely, ? Currently intubated, ?Minimize sedation, spontaneous breathing trial ? Minimize FiO2, minimize tidal volume ? Awaiting family numbers to arrive on Tuesday, before extubating Septic shock, resolved ? Secondary to aspiration pneumonia, ? Currently off Levophed, ? Monitor hemodynamics closely, NSTEMI, ? Type I versus type II, ? Continue aspirin, on heparin drip ? Cardiac echo Normal LV size with diminished ejection fraction of 45%. Mild diffuse hypokinesia of the ventricle, more so of the septum and the anteroseptal segments. Mild left ventricular hypertrophy. There is no pericardial effusion. There are no intracardiac masses. No similar previous studies are available for comparison ? Serial EKGs, telemetry monitoring Acute encephalopathy, resolved ? Secondary to as above ? At baseline she can sometimes say a few words here and there, but is not alert to place or time, requires assistance of all activities of daily living - CT/CT head wo con* [id number] IMPRESSION: Severe periventricular small-vessel ischemic change. 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 No hemorrhagic transformation. UTI, continue Zosyn Baseline ? He is nonambulatory ? Requires assistance of continue daily living, ? In terms of mentation she can say few years here and there according to family numbers ? Over the last 6 months she has had a rapid decline, Her CT of the head did show as above, and has evidence of chronic area of infarction in the right frontoparietal region DVT prophylaxis: Lovenox 40 PUD prophylaxis Protonix DNR/DNI Attestations 2 Medical Necessity Statement*: Patient requires hospitalization for respiratory failure, currently intubated, plan on extubation today Coding Level of Care Code Critical Care >/= 30 minutes Critical care time (in minutes): 45 The high probability of a clinically significant, sudden or life threatening deterioration, as referenced in this documentation, required my full and direct attention, intervention and personal management. The critical care time shown is in addition to time spent performing any reported separately billable procedures and includes the following: [x] Data and vital sign review and interpretation [x ] Patient assessment, examination and intervention [x] Medication orders and management [x] Patient/Family updates as able [x] Care Coordination and Documentation. Diagnoses Aspiration into airway T17.908A Aspiration pneumonia due to food (regurgitated) J69.0 Hypoxic respiratory failure J96.91 NSTEMI (non-ST elevated myocardial infarction) I21.4 Septic shock A41.9; R65.21
[2023-10-27] MEDS: mirtazapine 30 mg Tablet PO (20:33)
[2023-10-27 20:45] LABS: Partial Thromboplastin Time 59.6 SECONDS (23.9-36.7)
[2023-10-28] VITALS (21 sets, daily range): BP systolic 102–139; BP diastolic 56–83; PULSE 53–91; RESP 12–26; TEMP 36.7–37.7; O2SAT 93–98
[2023-10-28 04:09] LABS: Basophils % 0.3 %; Lymphocytes # 1.9 10^3/uL (0.8-4.8); Lymphocytes % 18.6 %; Mean Corpuscular Hemoglobin 30.4 pg (27-33); Mean Corpuscular Volume 92.2 fl (85-98); Monocytes # 0.5 10^3/uL (0.2-0.9); Monocytes % 4.6 %; Neutrophils # 7.53 10^3/uL (1.8-7.7); Neutrophils % 75.5 %; Nucleated Red Blood Cells % 0 %; Platelet Count 221 10^3/cmm (157-399); Red Blood Count 3.58 10^6/uL (3.85-5.65); Red Cell Distribution Width 13.4 % (12.1-15.1); White Blood Count 9.97 10^3/uL (3.29-11.43)
[2023-10-28 04:21] LABS: INR 1.05 (0.8-1.2)
[2023-10-28 04:22] LABS: Partial Thromboplastin Time 58.1 SECONDS (23.9-36.7)
[2023-10-28 04:28] LABS: Alanine Aminotransferase < 5 U/L (0-33); Albumin Level 3.2 g/dL (3.5-5.2); Alkaline Phosphatase 46 U/L (35-105); Anion Gap 16.3 (5-19); Aspartate Amino Transferase 15 U/L (0-32); Blood Urea Nitrogen 19 mg/dL (8-23); Calcium 8.2 mg/dL (8.5-10.5); Carbon Dioxide 21 mmol/L (22-29); Chloride 105 mmol/L (98-107); Globulin 2.9 g/dL (1.3-4.6); Glomerular Filtration Rate 41.1 mL/min (90-130); Glucose 83 mg/dL (65-115); Osmolality Calculated 289 mOsm/kg (285-295); Potassium 3.3 mmol/L (3.5-5.1); Sodium 139 mmol/L (136-145); Total Bilirubin 0.5 mg/dL (0.15-1.2); Total Protein 6.1 g/dL (6.6-8.7)
[2023-10-28 04:29] LABS: C Reactive Protein 31.3 mg/L (0.0-4.9); Magnesium 1.9 mg/dL (1.7-2.3); Phosphorus 2.9 mg/dL (2.5-4.5)
[2023-10-28 04:35] LABS: Procalcitonin 0.08 ng/mL (0-0.5)
[2023-10-28] MEDS: vancomycin 1,000 MG in sodium chloride 0.9% 250 ML 250 MG IV (04:38)
[2023-10-28 04:50] LABS: NT Pro B Type Natriuretic Pept 1480 pg/mL (0-125)
[2023-10-28] MEDS: levothyroxine 125 mcg Tablet PO (05:39)
[2023-10-28] MEDS: piperacillin-tazobactam 3.375 GM in sodium chloride 0.9% (plus) 50 ML IV ×3 (06:13→22:17)
--- NOTE | 2023-10-28 07:27 | PC.SOCIAL ---
IMM Updated Updated pt's family on IMM. No questions voiced. Provided pt a copy. Initialed, dated, & timed a copy & placed in chart.
[2023-10-28] MEDS: buPROPion XL (24 HR) 150 mg Tablet PO (08:08)
[2023-10-28] MEDS: donepezil 5 MG Tablet 10 MG PO (08:08)
[2023-10-28] MEDS: gabapentin 100 mg Capsule PO ×3 (08:09→19:47)
[2023-10-28] MEDS: pantoprazole DR 40 mg Tablet PO (08:09)
[2023-10-28] MEDS: aspirin 81 mg EC Tablet PO (08:09)
[2023-10-28] MEDS: duloxetine 60 mg Capsule PO (08:09)
[2023-10-28] MEDS: digoxin 125 mcg Tablet PO (08:09)
[2023-10-28] MEDS: carbidopa-levodopa 25-100mg Tablet 1 EACH PO ×4 (08:09→19:47)
[2023-10-28] MEDS: heparin drip 25,000 UNIT/500 ML PREMIX 18 UNIT IV (08:24)
[2023-10-28] MEDS: dexamethasone 10 mg/mL INJ 6 MG IVP (11:08)
--- NOTE | 2023-10-28 12:35 | P.PN_ITS ---
Subjective 2 Subjective: Patient was seen this morning, grandson at bedside, she is alert to person, she says her name, she can answer basic yes or no questions, not to place, not to time, she can follow me around the room, withdraws from pain, can follow commands, she was started on dysphagia diet, no choking episodes no coughing episodes, denies any chest pain, shortness of breath, no abdominal pain, patient's grandson at bedside tells me that she is much more alert and awake that she has been at the long term, we discussed her positive blood culture, will start on vancomycin, monitor her blood cultures, Vitals/I&O/Wt Last Vital Signs Temp 98.0 F 10/28/23 04:00 Pulse 61 10/28/23 10:00 Resp 16 10/28/23 10:00 BP 120/69 10/28/23 10:00 Pulse Ox 94 10/28/23 10:00 O2 Del Method Room Air 10/28/23 08:11 O2 Flow Rate 1 10/27/23 22:00 FiO2 1 10/28/23 00:00 10/27/23 10/28/23 10/28/23 22:59 06:59 14:59 Intake Total 453.9 / 503.9 210.633 / 714.533 100 / 100 Output Total 2500 / 2500 650 / 3150 Balance -2046.1 / -1995.1 -439.367 / -2435.467 100 / 100 Weight last 48 hrs Weight 66.86 kg Weight 69.354 kg Physical Exam 2 Const: COMMON NORMALS: no acute distress ORIENTATION/CONSCIOUSNESS: Yes awake and Yes oriented to person; not oriented to place and not oriented to time Resp: COMMON NORMALS: normal respiratory effort, No retractions, No use of accessory muscles and clear to auscultation bilaterally AUSCULTATION: clear to auscultation bilaterally Cardio: COMMON NORMALS: regular rate, regular rhythm, S1 normal heart sound present and S2 normal heart sound present RATE: regular rate RHYTHM: r egular rhythm HEART SOUNDS: S1 normal heart sound present and S2 normal heart sound present GI: COMMON NORMALS: Normal to inspection, nondistended, normoactive bowel sounds present and non-tender Extremity: COMMON NORMALS: no pedal edema OTHER: Flexion contracture, right upper extremity, Neuro: SENSORIUM/ORIENTATION: Yes oriented to person, No oriented to place and No oriented to time Psych: COMMON NORMALS: mental status grossly normal Urinary Catheter Management: Anthony: Cath Placed During This Visit: yes Reason for Continuing Indwelling Catheter: Accurate Measurement of Urinary Output in Critically Ill Patients Urinary Catheter Date of Insertion: 10/24/23 Urinary Catheter Time of Insertion: 19:35 Data 10/28/23 04:00 10/28/23 04:00 Micro: Microbiology 10/25/23 17:17 Blood Culture - Preliminary Blood 10/26/23 05:55 Blood Culture - Preliminary Blood 10/26/23 05:55 Blood Culture - Preliminary Blood 10/24/23 23:05 Gram Stain - Final Sputum - Endotracheal Tube Aspirate Sputum Culture - Final 10/24/23 19:43 Urine Culture - Final Urine,Clean Catch Escherichia coli A&P Assessment and plan (1) Aspiration into airway: (2) Aspiration pneumonia due to food (regurgitated): (3) Hypoxic respiratory failure: (4) NSTEMI (non-ST elevated myocardial infarction): (5) Septic shock: (6) Gram-positive bacteremia: Plan Acute hypoxic respiratory failure ? Secondary to aspiration pneumonia, aspiration pneumonitis, aspiration of food bolus into airway -ct chest w/o contrast - CT/CT chest wo con [id number] IMPRESSION: Scattered dense consolidation throughout the lungs concerning for pneumonia. Plan -Food bolus was removed during extubation, ? Continue aggressive pulmonary toilet, ? Continue Zosyn, ? Continue DuoNeb, ? De-escalate to prednisone ? Continue budesonide, ? Monitor respiratory status closely, ? Extubated to nasal cannula, currently on room air ?Aspiration precautions ? Speech therapy eval, dysphagia diet Gram-positive bacteremia, ? Continue vancomycin Septic shock, resolved ? Secondary to aspiration pneumonia, ? Currently off Levophed, ? Monitor hemodynamics closely, NSTEMI, ? Type I versus type II, ? Continue aspirin, completed 48 hours of heparin drip on heparin drip ? Cardiac echo Normal LV size with diminished ejection fraction of 45%. Mild diffuse hypokinesia of the ventricle, more so of the septum and the anteroseptal segments. Mild left ventricular hypertrophy. There is no pericardial effusion. There are no intracardiac masses. No similar previous studies are available for comparison ? Serial EKGs, telemetry monitoring Acute encephalopathy, resolved ? Secondary to as above ? At baseline she can sometimes say a few words here and there, but is not alert to place or time, requires assistance of all activities of daily living - CT/CT head wo con* [id number] IMPRESSION: Severe periventricular small-vessel ischemic change. 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 No hemorrhagic transformation. UTI, continue Zosyn Baseline ? He is nonambulatory ? Requires assistance of continue daily living, ? In terms of mentation she can say few years here and there according to family numbers ? Over the last 6 months she has had a rapid decline, Her CT of the head did show as above, and has evidence of chronic area of infarction in the right frontoparietal region DVT prophylaxis: Lovenox 40 PUD prophylaxis Protonix DNR/DNI Attestations 2 Medical Necessity Statement*: Patient requires hospitalization for acute hypoxic respiratory failure, gram- positive bacteremia, Diagnoses Aspiration into airway T17.908A Aspiration pneumonia due to food (regurgitated) J69.0 Hypoxic respiratory failure J96.91 NSTEMI (non-ST elevated myocardial infarction) I21.4 Septic shock A41.9; R65.21 Gram-positive bacteremia R78.81
[2023-10-28 14:20] LABS: Partial Thromboplastin Time 28.4 SECONDS (23.9-36.7)
[2023-10-28] MEDS: polyethylene glycol 3350 Pkt 17 gm PO (15:07)
[2023-10-28] MEDS: enoxaparin 40 mg/0.4 mL Syringe SUBCUT (17:13)
[2023-10-28] MEDS: atorvastatin 40 mg Tablet 20 MG PO (17:13)
[2023-10-28] MEDS: prazosin 5 mg Capsule PO (19:47)
[2023-10-28] MEDS: mirtazapine 30 mg Tablet PO (19:47)
[2023-10-29] VITALS (12 sets, daily range): BP systolic 122–147; BP diastolic 65–88; PULSE 54–107; RESP 16; TEMP 36.4–36.9; O2SAT 95–98
[2023-10-29 04:16] LABS: Basophils % 0.2 %; Eosinophils % 0.1 %; Hematocrit 31.6 % (36-47); Lymphocytes # 1.9 10^3/uL (0.8-4.8); Lymphocytes % 22.8 %; Mean Corpuscular HGB Conc 31.3 g/dL (30-55); Mean Corpuscular Volume 95.8 fl (85-98); Mean Platelet Volume 11.2 fL (7.4-10.4); Monocytes # 0.4 10^3/uL (0.2-0.9); Monocytes % 4.9 %; Neutrophils # 5.89 10^3/uL (1.8-7.7); Neutrophils % 70.7 %; Nucleated Red Blood Cells % 0 %; Platelet Count 209 10^3/cmm (157-399); Red Cell Distribution Width 13.3 % (12.1-15.1); White Blood Count 8.34 10^3/uL (3.29-11.43)
[2023-10-29 04:36] LABS: Alanine Aminotransferase < 5 U/L (0-33); Albumin Level 3.2 g/dL (3.5-5.2); Alkaline Phosphatase 40 U/L (35-105); Anion Gap 15.3 (5-19); Aspartate Amino Transferase 15 U/L (0-32); Blood Urea Nitrogen 19 mg/dL (8-23); Calcium 7.7 mg/dL (8.5-10.5); Carbon Dioxide 21 mmol/L (22-29); Chloride 110 mmol/L (98-107); Globulin 2.4 g/dL (1.3-4.6); Glomerular Filtration Rate 41.1 mL/min (90-130); Glucose 86 mg/dL (65-115); Osmolality Calculated 298 mOsm/kg (285-295); Potassium 3.3 mmol/L (3.5-5.1); Sodium 143 mmol/L (136-145); Total Bilirubin 0.4 mg/dL (0.15-1.2); Total Protein 5.6 g/dL (6.6-8.7)
[2023-10-29 04:47] LABS: NT Pro B Type Natriuretic Pept 1774 pg/mL (0-125); Procalcitonin 0.05 ng/mL (0-0.5)
[2023-10-29 04:48] LABS: NT Pro B Type Natriuretic Pept 1744 pg/mL (0-125)
[2023-10-29 04:59] LABS: C Reactive Protein 15.6 mg/L (0.0-4.9); Magnesium 1.9 mg/dL (1.7-2.3); Phosphorus 1.8 mg/dL (2.5-4.5)
[2023-10-29] MEDS: levothyroxine 125 mcg Tablet PO (05:08)
[2023-10-29] MEDS: vancomycin 1,000 MG in sodium chloride 0.9% 250 ML 250 MG IV (05:09)
[2023-10-29] MEDS: piperacillin-tazobactam 3.375 GM in sodium chloride 0.9% (plus) 50 ML IV ×3 (06:08→22:08)
[2023-10-29] MEDS: gabapentin 100 mg Capsule PO ×3 (09:14→22:07)
[2023-10-29] MEDS: buPROPion XL (24 HR) 150 mg Tablet PO (09:14)
[2023-10-29] MEDS: duloxetine 60 mg Capsule PO (09:14)
[2023-10-29] MEDS: carbidopa-levodopa 25-100mg Tablet 1 EACH PO ×4 (09:14→22:07)
[2023-10-29] MEDS: donepezil 5 MG Tablet 10 MG PO (09:14)
[2023-10-29] MEDS: pantoprazole DR 40 mg Tablet PO (09:14)
[2023-10-29] MEDS: digoxin 125 mcg Tablet PO (09:15)
[2023-10-29] MEDS: aspirin 81 mg EC Tablet PO (09:15)
[2023-10-29] MEDS: predniSONE 20 mg Tablet 40 MG PO (09:15)
[2023-10-29] MEDS: potassium phosphate (mEq K) 40 MEQ in sodium chloride 0.9% (100 ml) 100 ML 25 MEQ IV (09:53)
[2023-10-29] MEDS: polyethylene glycol 3350 Pkt 17 gm PO (09:53)
--- NOTE | 2023-10-29 16:13 | P.PN_ITS ---
Subjective 2 Subjective: Patient was seen this morning, patient's sister is at bedside, she is alert to person, to place, not to time she can follow commands, and has no complaints afebrile overnight Vitals/I&O/Wt Last Vital Signs Temp 98.0 F 10/29/23 11:08 Pulse 90 10/29/23 14:25 Resp 16 10/29/23 14:25 BP 126/77 10/29/23 11:08 Pulse Ox 97 10/29/23 14:25 O2 Del Method Room Air 10/29/23 14:25 O2 Flow Rate 1 10/27/23 22:00 FiO2 1 10/28/23 00:00 10/29/23 10/29/23 10/29/23 06:59 14:59 22:59 Intake Total 300 / 1098.3 410 / 410 Output Total 600 / 600 Balance -300 / 498.3 410 / 410 Weight last 48 hrs Weight 71.395 kg Weight 66.86 kg Physical Exam 2 Const: COMMON NORMALS: no acute distress Resp: COMMON NORMALS: normal respiratory effort, No retractions, No use of accessory muscles and clear to auscultation bilaterally AUSCULTATION: clear to auscultation bilaterally Cardio: COMMON NORMALS: regular rate, regular rhythm, S1 normal heart sound present and S2 normal heart sound present RATE: regular rate RHYTHM: r egular rhythm HEART SOUNDS: S1 normal heart sound present and S2 normal heart sound present GI: COMMON NORMALS: Normal to inspection, nondistended, normoactive bowel sounds present and non-tender Extremity: COMMON NORMALS: no pedal edema Psych: COMMON NORMALS: mental status grossly normal Urinary Catheter Management: Anthony: Cath Placed During This Visit: yes Reason for Continuing Indwelling Catheter: Assist Healing of Perineal & Sacral Wounds- Incontinent Patients Urinary Catheter Date of Insertion: 10/24/23 Urinary Catheter Time of Insertion: 19:35 Data 10/29/23 03:51 10/29/23 03:51 Micro: Microbiology 10/28/23 13:41 Blood Culture - Preliminary Blood 10/28/23 13:35 Blood Culture - Preliminary Blood 10/25/23 17:17 Blood Culture - Preliminary Blood 10/25/23 17:02 Blood Culture - Preliminary Blood A&P Assessment and plan (1) Aspiration into airway: (2) Aspiration pneumonia due to food (regurgitated): (3) Hypoxic respiratory failure: (4) NSTEMI (non-ST elevated myocardial infarction): (5) Septic shock: (6) Gram-positive bacteremia: Plan Acute hypoxic respiratory failure ? Secondary to aspiration pneumonia, aspiration pneumonitis, aspiration of food bolus into airway -ct chest w/o contrast - CT/CT chest wo con [id number] IMPRESSION: Scattered dense consolidation throughout the lungs concerning for pneumonia. Plan -Food bolus was removed during extubation, ? Continue aggressive pulmonary toilet, ? Continue Zosyn, ? Continue DuoNeb, ? De-escalate to prednisone ? Continue budesonide, ? Monitor respiratory status closely, ? Extubated to nasal cannula, currently on room air, currently on medical floors ?Aspiration precautions ? Speech therapy eval, dysphagia diet Gram-positive bacteremia, ? Continue vancomycin Septic shock, resolved ? Secondary to aspiration pneumonia, ? Currently off Levophed, ? Monitor hemodynamics closely, NSTEMI, ? Type I versus type II, ? Continue aspirin, completed 48 hours of heparin drip on heparin drip ? Cardiac echo Normal LV size with diminished ejection fraction of 45%. Mild diffuse hypokinesia of the ventricle, more so of the septum and the anteroseptal segments. Mild left ventricular hypertrophy. There is no pericardial effusion. There are no intracardiac masses. No similar previous studies are available for comparison ? Serial EKGs, telemetry monitoring Acute encephalopathy, resolved ? Secondary to as above ? At baseline she can sometimes say a few words here and there, but is not alert to place or time, requires assistance of all activities of daily living - CT/CT head wo con* [id number] IMPRESSION: Severe periventricular small-vessel ischemic change. 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 No hemorrhagic transformation. UTI, continue Zosyn Baseline ? He is nonambulatory ? Requires assistance of continue daily living, ? In terms of mentation she can say few years here and there according to family numbers ? Over the last 6 months she has had a rapid decline, Her CT of the head did show as above, and has evidence of chronic area of infarction in the right frontoparietal region DVT prophylaxis: Lovenox 40 PUD prophylaxis Protonix DNR/DNI Attestations 2 Medical Necessity Statement*: Patient requires hospitalization for aspiration pneumonia, gram-positive bacteremia Diagnoses Aspiration into airway T17.908A Aspiration pneumonia due to food (regurgitated) J69.0 Hypoxic respiratory failure J96.91 NSTEMI (non-ST elevated myocardial infarction) I21.4 Septic shock A41.9; R65.21 Gram-positive bacteremia R78.81
[2023-10-29] MEDS: enoxaparin 40 mg/0.4 mL Syringe SUBCUT (17:11)
[2023-10-29] MEDS: atorvastatin 40 mg Tablet 20 MG PO (17:11)
[2023-10-29] MEDS: prazosin 5 mg Capsule PO (22:06)
[2023-10-29] MEDS: mirtazapine 30 mg Tablet PO (22:08)
[2023-10-30] VITALS (9 sets, daily range): BP systolic 123–148; BP diastolic 70–85; PULSE 67–91; RESP 15–18; TEMP 36.6–36.8; O2SAT 94–97
[2023-10-30] MEDS: vancomycin 1,000 MG in sodium chloride 0.9% 250 ML 250 MG IV (04:19)
[2023-10-30 05:02] LABS: Basophils % 0.3 %; Eosinophils % 0.5 %; Hematocrit 33.5 % (36-47); Lymphocytes # 1.9 10^3/uL (0.8-4.8); Lymphocytes % 24.5 %; Mean Corpuscular HGB Conc 31.3 g/dL (30-55); Mean Corpuscular Hemoglobin 30.3 pg (27-33); Mean Corpuscular Volume 96.8 fl (85-98); Mean Platelet Volume 11.3 fL (7.4-10.4); Monocytes # 0.5 10^3/uL (0.2-0.9); Monocytes % 5.9 %; Neutrophils # 5.33 10^3/uL (1.8-7.7); Neutrophils % 67.2 %; Nucleated Red Blood Cells % 0 %; Platelet Count 222 10^3/cmm (157-399); Red Blood Count 3.46 10^6/uL (3.85-5.65); Red Cell Distribution Width 13.5 % (12.1-15.1); White Blood Count 7.93 10^3/uL (3.29-11.43)
[2023-10-30 05:20] LABS: C Reactive Protein 9.8 mg/L (0.0-4.9); Phosphorus 2.1 mg/dL (2.5-4.5)
[2023-10-30 05:27] LABS: Anion Gap 14.5 (5-19); Blood Urea Nitrogen 18 mg/dL (8-23); Calcium 7.9 mg/dL (8.5-10.5); Carbon Dioxide 21 mmol/L (22-29); Chloride 109 mmol/L (98-107); Glomerular Filtration Rate 49.8 mL/min (90-130); Glucose 99 mg/dL (65-115); Osmolality Calculated 294 mOsm/kg (285-295); Potassium 3.5 mmol/L (3.5-5.1); Sodium 141 mmol/L (136-145)
[2023-10-30 05:28] LABS: Procalcitonin 0.04 ng/mL (0-0.5)
[2023-10-30] MEDS: levothyroxine 125 mcg Tablet PO (06:01)
[2023-10-30] MEDS: piperacillin-tazobactam 3.375 GM in sodium chloride 0.9% (plus) 50 ML IV ×3 (06:01→22:15)
[2023-10-30 06:12] LABS: NT Pro B Type Natriuretic Pept 1641 pg/mL (0-125)
[2023-10-30] MEDS: digoxin 125 mcg Tablet PO (09:08)
[2023-10-30] MEDS: donepezil 5 MG Tablet 10 MG PO (09:08)
[2023-10-30] MEDS: gabapentin 100 mg Capsule PO ×2 (09:08→14:17)
[2023-10-30] MEDS: predniSONE 20 mg Tablet 40 MG PO (09:08)
[2023-10-30] MEDS: buPROPion XL (24 HR) 150 mg Tablet PO (09:08)
[2023-10-30] MEDS: duloxetine 60 mg Capsule PO (09:08)
[2023-10-30] MEDS: aspirin 81 mg EC Tablet PO (09:08)
[2023-10-30] MEDS: pantoprazole DR 40 mg Tablet PO (09:08)
[2023-10-30] MEDS: carbidopa-levodopa 25-100mg Tablet 1 EACH PO ×3 (09:08→17:53)
[2023-10-30] MEDS: polyethylene glycol 3350 Pkt 17 gm PO (09:09)
--- NOTE | 2023-10-30 14:01 | P.PN_ITS ---
Subjective 2 Subjective: Patient was seen this morning, she is alert to person, not to place, not to time she can follow commands Vitals/I&O/Wt Last Vital Signs Temp 98.3 F 10/30/23 12:00 Pulse 69 10/30/23 12:00 Resp 18 10/30/23 12:00 BP 124/72 10/30/23 12:00 Pulse Ox 96 10/30/23 12:00 O2 Del Method Room Air 10/30/23 07:07 O2 Flow Rate 1 10/27/23 22:00 FiO2 1 10/28/23 00:00 10/29/23 10/30/23 10/30/23 22:59 06:59 14:59 Intake Total 420 / 938.5106 300.0 / 1238.5106 170 / 170 Output Total 600 / 600 300 / 900 Balance -180 / 338.5106 0 / 338.5106 170 / 170 Weight last 48 hrs Weight 71.923 kg Weight 71.395 kg Physical Exam 2 Const: COMMON NORMALS: no acute distress ORIENTATION/CONSCIOUSNESS: Yes awake and Yes oriented to person; not oriented to place and not oriented to time Resp: COMMON NORMALS: normal respiratory effort, No retractions, No use of accessory muscles and clear to auscultation bilaterally AUSCULTATION: clear to auscultation bilaterally Cardio: COMMON NORMALS: regular rate, regular rhythm, S1 normal heart sound present and S2 normal heart sound present RATE: regular rate RHYTHM: r egular rhythm HEART SOUNDS: S1 normal heart sound present and S2 normal heart sound present GI: COMMON NORMALS: Normal to inspection, nondistended, normoactive bowel sounds present and non-tender Extremity: COMMON NORMALS: no pedal edema Neuro: SENSORIUM/ORIENTATION: Yes oriented to person, No oriented to place and No oriented to time Psych: COMMON NORMALS: mental status grossly normal Urinary Catheter Management: Anthony: Cath Placed During This Visit: yes Reason for Continuing Indwelling Catheter: Assist Healing of Perineal & Sacral Wounds- Incontinent Patients Urinary Catheter Date of Insertion: 10/24/23 Urinary Catheter Time of Insertion: 19:35 Data 10/30/23 04:50 10/30/23 04:50 Micro: Microbiology 10/25/23 17:17 Blood Culture - Preliminary Blood 10/28/23 13:41 Blood Culture - Preliminary Blood 10/28/23 13:35 Blood Culture - Preliminary Blood A&P Assessment and plan (1) Aspiration into airway: (2) Aspiration pneumonia due to food (regurgitated): (3) Hypoxic respiratory failure: (4) NSTEMI (non-ST elevated myocardial infarction): (5) Septic shock: (6) Gram-positive bacteremia: Plan Acute hypoxic respiratory failure ? Secondary to aspiration pneumonia, aspiration pneumonitis, aspiration of food bolus into airway -ct chest w/o contrast - CT/CT chest wo con [id number] IMPRESSION: Scattered dense consolidation throughout the lungs concerning for pneumonia. Plan -Food bolus was removed during extubation, ? Continue aggressive pulmonary toilet, ? Continue Zosyn, ? Continue DuoNeb, ? De-escalate to prednisone ? Continue budesonide, ? Monitor respiratory status closely, ? Extubated to nasal cannula, currently on room air, currently on medical floors ?Aspiration precautions ? Speech therapy eval, dysphagia diet Gram-positive bacteremia, ? Continue vancomycin Septic shock, resolved ? Secondary to aspiration pneumonia, ? Currently off Levophed, ? Monitor hemodynamics closely, NSTEMI, ? Type I versus type II, ? Continue aspirin, completed 48 hours of heparin drip on heparin drip ? Cardiac echo Normal LV size with diminished ejection fraction of 45%. Mild diffuse hypokinesia of the ventricle, more so of the septum and the anteroseptal segments. Mild left ventricular hypertrophy. There is no pericardial effusion. There are no intracardiac masses. No similar previous studies are available for comparison ? Serial EKGs, telemetry monitoring Acute encephalopathy, resolved ? Secondary to as above ? At baseline she can sometimes say a few words here and there, but is not alert to place or time, requires assistance of all activities of daily living - CT/CT head wo con* [id number] IMPRESSION: Severe periventricular small-vessel ischemic change. 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 No hemorrhagic transformation. UTI, continue Zosyn Baseline ? He is nonambulatory ? Requires assistance of continue daily living, ? In terms of mentation she can say few years here and there according to family numbers ? Over the last 6 months she has had a rapid decline, Her CT of the head did show as above, and has evidence of chronic area of infarction in the right frontoparietal region DVT prophylaxis: Lovenox 40 PUD prophylaxis Protonix DNR/DNI Attestations 2 Medical Necessity Statement*: Patient requires hospitalization for respiratory failure, gram-positive bacteremia Diagnoses Aspiration into airway T17.908A Aspiration pneumonia due to food (regurgitated) J69.0 Hypoxic respiratory failure J96.91 NSTEMI (non-ST elevated myocardial infarction) I21.4 Septic shock A41.9; R65.21 Gram-positive bacteremia R78.81
[2023-10-30] MEDS: enoxaparin 40 mg/0.4 mL Syringe SUBCUT (17:52)
[2023-10-30] MEDS: atorvastatin 40 mg Tablet 20 MG PO (17:53)
[2023-10-31] VITALS (10 sets, daily range): BP systolic 128–168; BP diastolic 71–94; PULSE 64–94; RESP 12–17; TEMP 36.4–36.8; O2SAT 94–98
[2023-10-31] MEDS: vancomycin 1,000 MG in sodium chloride 0.9% 250 ML 250 MG IV (04:51)
[2023-10-31 05:03] LABS: Basophils # 0.1 10^3/uL (0.0-0.1); Basophils % 0.5 %; Eosinophils % 0.4 %; Hematocrit 33.5 % (36-47); Lymphocytes # 2.1 10^3/uL (0.8-4.8); Mean Corpuscular HGB Conc 31.3 g/dL (30-55); Mean Corpuscular Hemoglobin 29.6 pg (27-33); Mean Corpuscular Volume 94.4 fl (85-98); Mean Platelet Volume 10.8 fL (7.4-10.4); Monocytes # 0.6 10^3/uL (0.2-0.9); Neutrophils # 6.69 10^3/uL (1.8-7.7); Neutrophils % 69.1 %; Nucleated Red Blood Cells % 0 %; Platelet Count 211 10^3/cmm (157-399); Red Blood Count 3.55 10^6/uL (3.85-5.65); Red Cell Distribution Width 13.1 % (12.1-15.1); White Blood Count 9.68 10^3/uL (3.29-11.43)
[2023-10-31 05:34] LABS: Anion Gap 14.7 (5-19); Blood Urea Nitrogen 18 mg/dL (8-23); Calcium 8.3 mg/dL (8.5-10.5); Carbon Dioxide 23 mmol/L (22-29); Chloride 108 mmol/L (98-107); Glomerular Filtration Rate 62.8 mL/min (90-130); Glucose 83 mg/dL (65-115); Osmolality Calculated 295 mOsm/kg (285-295); Potassium 3.7 mmol/L (3.5-5.1); Sodium 142 mmol/L (136-145)
[2023-10-31 05:36] LABS: NT Pro B Type Natriuretic Pept 1835 pg/mL (0-125); Procalcitonin 0.02 ng/mL (0-0.5)
[2023-10-31 05:47] LABS: C Reactive Protein 6.3 mg/L (0.0-4.9); Phosphorus 2.3 mg/dL (2.5-4.5)
[2023-10-31] MEDS: piperacillin-tazobactam 3.375 GM in sodium chloride 0.9% (plus) 50 ML IV ×3 (06:38→23:04)
--- NOTE | 2023-10-31 10:59 | PC.SOCIAL ---
IMM Update Pg. 2 of IMM updated and reviewed with patient who verbalized understanding. Copy provided. Copy placed in chart.
--- NOTE | 2023-10-31 12:54 | PC.NURSE ---
PO medications held 10/31/23 for concerns of aspiration. Speech was consulted and confirmed that PO medication should be withheld. Doctor notified. Instructions to hold PO medication until the morning of 11/01/23.
--- NOTE | 2023-10-31 14:19 | P.PN_ITS ---
Subjective 2 Subjective: Patient was seen this morning, she is sitting up in a bed, she was assessed by speech therapy yesterday was felt to have a high aspiration risk, this seen again this morning by speech therapy again seen to have high aspiration risk, she does follow some commands, she alert to person, to place, not to time, she has chronic flexion contracture left upper extremity, she does move her right extremity, onto commands, plan was to keep her n.p.o., for a modified barium swallow tomorrow MRI of the brain, I discussed this with patient in detail, I do not know if she understands the depth of the information Vitals/I&O/Wt Last Vital Signs Temp 97.5 F L 10/31/23 11:11 Pulse 73 10/31/23 11:11 Resp 14 10/31/23 11:11 BP 159/81 10/31/23 11:11 Pulse Ox 97 10/31/23 11:11 O2 Del Method Room Air 10/31/23 11:11 O2 Flow Rate 1 10/27/23 22:00 FiO2 1 10/28/23 00:00 10/30/23 10/31/23 10/31/23 22:59 06:59 14:59 Intake Total 50 / 220 300 / 520 50 / 50 Output Total 600 / 600 450 / 1050 Balance -550 / -380 -150 / -530 50 / 50 Weight last 48 hrs Weight 71.923 kg Physical Exam 2 Const: COMMON NORMALS: no acute distress ORIENTATION/CONSCIOUSNESS: Yes awake, Yes oriented to person, Yes oriented to place and Yes confused; not oriented to time Resp: COMMON NORMALS: normal respiratory effort, No retractions, No use of accessory muscles and clear to auscultation bilaterally AUSCULTATION: clear to auscultation bilaterally Cardio: COMMON NORMALS: regular rate, regular rhythm, S1 normal heart sound present and S2 normal heart sound present RATE: regular rate RHYTHM: r egular rhythm HEART SOUNDS: S1 normal heart sound present and S2 normal heart sound present GI: COMMON NORMALS: Normal to inspection, nondistended, normoactive bowel sounds present and non-tender Extremity: COMMON NORMALS: no pedal edema Neuro: SENSORIUM/ORIENTATION: Yes oriented to person, Yes oriented to place and No oriented to time Urinary Catheter Management: Anthony: Cath Placed During This Visit: yes Reason for Continuing Indwelling Catheter: Assist Healing of Perineal & Sacral Wounds- Incontinent Patients Urinary Catheter Date of Insertion: 10/24/23 Urinary Catheter Time of Insertion: 19:35 Data 10/31/23 04:40 10/31/23 04:40 Micro: Microbiology 10/25/23 17:17 Blood Culture - Preliminary Blood A&P Assessment and plan (1) Aspiration into airway: (2) Aspiration pneumonia due to food (regurgitated): (3) Hypoxic respiratory failure: (4) NSTEMI (non-ST elevated myocardial infarction): (5) Septic shock: (6) Gram-positive bacteremia: Plan Acute hypoxic respiratory failure ? Secondary to aspiration pneumonia, aspiration pneumonitis, aspiration of food bolus into airway -ct chest w/o contrast - CT/CT chest wo con [id number] IMPRESSION: Scattered dense consolidation throughout the lungs concerning for pneumonia. Plan -Food bolus was removed during extubation, ? Continue aggressive pulmonary toilet, ? Continue Zosyn, ? Continue DuoNeb, ? De-escalate to prednisone ? Continue budesonide, ? Monitor respiratory status closely, ? Extubated to nasal cannula, currently on room air, currently on medical floors ?Aspiration precautions ? Speech therapy eval, dysphagia diet High aspiration risk, ? Continues to swallowing difficulty ? Keep n.p.o., ? Can try applesauce to get medications, ? Modified barium swallow tomorrow, ? MRI brain Gram-positive bacteremia, Staph capitis, seen only on 1 blood cultures on 4, repeat blood cultures negative, ? Stop vancomycin Septic shock, resolved ? Secondary to aspiration pneumonia, ? Currently off Levophed, ? Monitor hemodynamics closely, NSTEMI, ? Type I versus type II, ? Continue aspirin, completed 48 hours of heparin drip on heparin drip ? Cardiac echo Normal LV size with diminished ejection fraction of 45%. Mild diffuse hypokinesia of the ventricle, more so of the septum and the anteroseptal segments. Mild left ventricular hypertrophy. There is no pericardial effusion. There are no intracardiac masses. No similar previous studies are available for comparison ? Serial EKGs, telemetry monitoring Acute encephalopathy, resolved ? Secondary to as above ? At baseline she can sometimes say a few words here and there, but is not alert to place or time, requires assistance of all activities of daily living - CT/CT head wo con* [id number] IMPRESSION: Severe periventricular small-vessel ischemic change. 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 No hemorrhagic transformation. UTI, continue Zosyn Baseline ? He is nonambulatory ? Requires assistance of continue daily living, ? In terms of mentation she can say few years here and there according to family numbers ? Over the last 6 months she has had a rapid decline, Her CT of the head did show as above, and has evidence of chronic area of infarction in the right frontoparietal region DVT prophylaxis: Lovenox 40 PUD prophylaxis Protonix DNR/DNI Attestations 2 Medical Necessity Statement*: Patient requires hospitalization high aspiration risk reported modified barium swallow, persistent encephalopathy at times MRI of the brain, Diagnoses Aspiration into airway T17.908A Aspiration pneumonia due to food (regurgitated) J69.0 Hypoxic respiratory failure J96.91 NSTEMI (non-ST elevated myocardial infarction) I21.4 Septic shock A41.9; R65.21 Gram-positive bacteremia R78.81
[2023-10-31] MEDS: enoxaparin 40 mg/0.4 mL Syringe SUBCUT (17:20)
[2023-11-01] VITALS (9 sets, daily range): BP systolic 137–170; BP diastolic 72–99; PULSE 69–110; RESP 14–18; TEMP 36.3–37; O2SAT 93–98; BMI 24.3
[2023-11-01] MEDS: piperacillin-tazobactam 3.375 GM in sodium chloride 0.9% (plus) 50 ML IV ×3 (06:09→22:20)
[2023-11-01 06:28] LABS: Basophils # 0.1 10^3/uL (0.0-0.1); Basophils % 0.7 %; Eosinophils # 0.1 10^3/uL (0.0-0.8); Eosinophils % 0.9 %; Hematocrit 36.2 % (36-47); Lymphocytes # 1.5 10^3/uL (0.8-4.8); Lymphocytes % 14.6 %; Mean Corpuscular HGB Conc 32.6 g/dL (30-55); Mean Corpuscular Hemoglobin 30.3 pg (27-33); Mean Corpuscular Volume 93.1 fl (85-98); Mean Platelet Volume 10.7 fL (7.4-10.4); Monocytes # 0.6 10^3/uL (0.2-0.9); Monocytes % 5.9 %; Neutrophils # 7.86 10^3/uL (1.8-7.7); Neutrophils % 76.1 %; Nucleated Red Blood Cells % 0 %; Platelet Count 264 10^3/cmm (157-399); Red Blood Count 3.89 10^6/uL (3.85-5.65); Red Cell Distribution Width 13.1 % (12.1-15.1); White Blood Count 10.33 10^3/uL (3.29-11.43)
--- NOTE | 2023-11-01 06:30 | MR_ITS ---
WS: [id number] MRI HEAD WITHOUT CONTRAST TECHNIQUE: Sagittal T1, T2 axial, T2 axial FLAIR, axial and coronal T1 images, axial susceptibility w eighted imaging, axial diffusion weighted images, and coronal T2 images were obtained. CLINICAL INFORMATION: cva COMPARISON: MRI 01/27/2023 FINDINGS: Images degraded by motion. No evidence of restricted diffusion to suggest acute ischemia Moderate to advanced small vessel changes with moderate to advanced parenchymal volume loss. Chronic infarcts in the RIGHT posterior frontal lobe and LEFT posterior parietal lobe with encephalomalacia a nd gliosis. This is unchanged from the recent prior studies. Ventriculomegaly likely on the basis of atrophy appears unchanged since the prior MRI. Multiple tiny chronic lacunar infarcts in the cerebell um. Normal vascular flow voids at the skull base. No extra-axial fluid collections. Tiny chronic lacunar infarct LEFT lateral thalamus. Paranasal sinuses are well aerated. Mastoid air cells are well aerated . Normal posterior nasopharynx. Small chronic focus of hemosiderin in the LEFT parietal infarct bed. No other foci of hemosiderin. Normal optic chiasm and pituitary infundibulum. Moderate to advanced sy mmetric atrophy temporal lobes and hippocampal formations. IMPRESSION: Images degraded by motion. 1. No evidence of restricted diffusion to suggest acute ischemia. 2. Moderate to advanced small vessel changes with moderate to advanced parenchymal volume loss. 3. Chronic infarcts in the RIGHT posterior frontal lobe and LEFT posterior parietal lobe with enceph alomalacia and gliosis. This is unchanged from the recent prior studies. 4. Ventriculomegaly likely on the basis of atrophy appears unchanged since the prior MRI. 5. Multiple tiny chronic lacunar infarcts in the cerebellum and LEFT thalamus.
[2023-11-01 06:43] LABS: C Reactive Protein 4.5 mg/L (0.0-4.9); Magnesium 2.1 mg/dL (1.7-2.3); Phosphorus 2.6 mg/dL (2.5-4.5)
[2023-11-01 06:52] LABS: NT Pro B Type Natriuretic Pept 2058 pg/mL (0-125); Procalcitonin 0.05 ng/mL (0-0.5)
[2023-11-01 07:03] LABS: Anion Gap 15.4 (5-19); Blood Urea Nitrogen 19 mg/dL (8-23); Calcium 8.2 mg/dL (8.5-10.5); Carbon Dioxide 21 mmol/L (22-29); Chloride 105 mmol/L (98-107); Glomerular Filtration Rate 55.6 mL/min (90-130); Glucose 82 mg/dL (65-115); Osmolality Calculated 287 mOsm/kg (285-295); Potassium 3.4 mmol/L (3.5-5.1); Sodium 138 mmol/L (136-145)
--- NOTE | 2023-11-01 08:00 | FL_ITS ---
WS: [id number] Modified barium swallow, 11/01/2023 Clinical Data: Oral dysphagia Comparison: None. Fluoroscopy time: 2min [id number] # of spot films: Findings: The patient had limited tongue movement during the oral phase. The hypopharynx showed residual which did clear with double swallowing. There is no aspiration or penetration. There is decreased pharyngea l peristalsis. Impression: 1. Lingular peristalsis reduced. 2. Reduced hypopharyngeal peristalsis with moderate residual which cleared on swallowing. 3. Negative for aspiration or penetration.
[2023-11-01] MEDS: digoxin 125 mcg Tablet PO (11:35)
[2023-11-01] MEDS: gabapentin 100 mg Capsule PO ×3 (11:35→20:52)
[2023-11-01] MEDS: pantoprazole DR 40 mg Tablet PO (11:35)
[2023-11-01] MEDS: carbidopa-levodopa 25-100mg Tablet 1 EACH PO ×4 (11:35→20:52)
[2023-11-01] MEDS: duloxetine 60 mg Capsule PO (11:35)
[2023-11-01] MEDS: predniSONE 20 mg Tablet 40 MG PO (11:35)
[2023-11-01] MEDS: buPROPion XL (24 HR) 150 mg Tablet PO (11:35)
[2023-11-01] MEDS: donepezil 5 MG Tablet 10 MG PO (11:36)
[2023-11-01] MEDS: aspirin 81 mg EC Tablet PO (11:36)
--- NOTE | 2023-11-01 17:06 | P.PN_ITS ---
Subjective 2 Subjective: Patient was seen this morning, denies any fevers, no chills, no cough, she is alert to person, not to place, not to time she can follow commands Vitals/I&O/Wt Last Vital Signs Temp 98.0 F 11/01/23 16:00 Pulse 97 11/01/23 16:00 Resp 16 11/01/23 16:00 BP 162/99 11/01/23 16:00 Pulse Ox 98 11/01/23 16:00 O2 Del Method Room Air 11/01/23 16:00 O2 Flow Rate 1 10/27/23 22:00 FiO2 1 10/28/23 00:00 11/01/23 11/01/23 11/01/23 06:59 14:59 22:59 Intake Total 50 / 150 50 / 50 Output Total 350 / 1300 Balance -300 / -1150 50 / 50 Weight last 48 hrs Weight 70.307 kg Physical Exam 2 Const: COMMON NORMALS: no acute distress ORIENTATION/CONSCIOUSNESS: Yes awake and Yes oriented to person; not oriented to place and not oriented to time Resp: COMMON NORMALS: normal respiratory effort, No retractions, No use of accessory muscles and clear to auscultation bilaterally AUSCULTATION: clear to auscultation bilaterally Cardio: COMMON NORMALS: regular rate, regular rhythm, S1 normal heart sound present and S2 normal heart sound present RATE: regular rate RHYTHM: r egular rhythm HEART SOUNDS: S1 normal heart sound present and S2 normal heart sound present GI: COMMON NORMALS: Normal to inspection, nondistended, normoactive bowel sounds present and non-tender Extremity: COMMON NORMALS: no pedal edema Neuro: SENSORIUM/ORIENTATION: Yes oriented to person, No oriented to place and No oriented to time Psych: COMMON NORMALS: mental status grossly normal Urinary Catheter Management: Anthony: Cath Placed During This Visit: yes Reason for Continuing Indwelling Catheter: Assist Healing of Perineal & Sacral Wounds- Incontinent Patients Urinary Catheter Date of Insertion: 10/24/23 Urinary Catheter Time of Insertion: 19:35 Data 11/01/23 06:12 11/01/23 06:12 Micro: Microbiology 10/26/23 05:55 Blood Culture - Final Blood 10/26/23 05:55 Blood Culture - Final Blood 10/25/23 17:02 Blood Culture - Final Blood A&P Assessment and plan (1) Aspiration into airway: (2) Aspiration pneumonia due to food (regurgitated): (3) Hypoxic respiratory failure: (4) NSTEMI (non-ST elevated myocardial infarction): (5) Septic shock: (6) Gram-positive bacteremia: Plan Acute hypoxic respiratory failure ? Secondary to aspiration pneumonia, aspiration pneumonitis, aspiration of food bolus into airway -ct chest w/o contrast - CT/CT chest wo con [id number] IMPRESSION: Scattered dense consolidation throughout the lungs concerning for pneumonia. Plan -Food bolus was removed during extubation, ? Continue aggressive pulmonary toilet, ? Continue Zosyn, will complete 7 days of IV antibiotics tomorrow ? Continue DuoNeb, ? De-escalate to prednisone ? Continue budesonide, ? Monitor respiratory status closely, ? Extubated to nasal cannula, currently on room air, currently on medical floors ?Aspiration precautions ? Speech therapy eval, dysphagia diet High aspiration risk, ? Continues to swallowing difficulty ? Keep n.p.o., ? Can try applesauce to get medications, ? Modified barium swallow tomorrow, ? MRI brain Gram-positive bacteremia, Staph capitis, seen only on 1 blood cultures on 4, repeat blood cultures negative, ? Stop vancomycin Septic shock, resolved ? Secondary to aspiration pneumonia, ? Currently off Levophed, ? Monitor hemodynamics closely, NSTEMI, ? Type I versus type II, ? Continue aspirin, completed 48 hours of heparin drip on heparin drip ? Cardiac echo Normal LV size with diminished ejection fraction of 45%. Mild diffuse hypokinesia of the ventricle, more so of the septum and the anteroseptal segments. Mild left ventricular hypertrophy. There is no pericardial effusion. There are no intracardiac masses. No similar previous studies are available for comparison ? Serial EKGs, telemetry monitoring Acute encephalopathy, resolved ? Secondary to as above ? At baseline she can sometimes say a few words here and there, but is not alert to place or time, requires assistance of all activities of daily living - CT/CT head wo con* [id number] IMPRESSION: Severe periventricular small-vessel ischemic change. 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 No hemorrhagic transformation. UTI, continue Zosyn Baseline ? He is nonambulatory ? Requires assistance of continue daily living, ? In terms of mentation she can say few years here and there according to family numbers ? Over the last 6 months she has had a rapid decline, Her CT of the head did show as above, and has evidence of chronic area of infarction in the right frontoparietal region DVT prophylaxis: Lovenox 40 PUD prophylaxis Protonix DNR/DNI Patient requires hospitalization for high aspiration risk, requiring speech therapy eval, continue encephalopathy requiring MRI of the brain, Attestations 2 Medical Necessity Statement*: Patient requires hospitalization for respiratory failure, recurrent aspiration, requiring speech therapy eval, modified barium swallow, continued episodes of confusion requiring MRI of the brain, Diagnoses Aspiration into airway T17.908A Aspiration pneumonia due to food (regurgitated) J69.0 Hypoxic respiratory failure J96.91 NSTEMI (non-ST elevated myocardial infarction) I21.4 Septic shock A41.9; R65.21 Gram-positive bacteremia R78.81
[2023-11-01] MEDS: enoxaparin 40 mg/0.4 mL Syringe SUBCUT (18:01)
[2023-11-01] MEDS: atorvastatin 40 mg Tablet 20 MG PO (18:01)
[2023-11-01] MEDS: mirtazapine 30 mg Tablet PO (20:52)
[2023-11-01] MEDS: prazosin 5 mg Capsule PO (20:52)
[2023-11-02] VITALS (10 sets, daily range): BP systolic 112–166; BP diastolic 65–88; PULSE 63–104; RESP 14–18; TEMP 36.6–37.4; O2SAT 90–97
--- NOTE | 2023-11-02 04:10 | PC.NURSE ---
Assumed care of pt from KARO Leyva
[2023-11-02] MEDS: piperacillin-tazobactam 3.375 GM in sodium chloride 0.9% (plus) 50 ML IV (05:54)
[2023-11-02] MEDS: levothyroxine 125 mcg Tablet PO (05:54)
[2023-11-02 06:14] LABS: Basophils % 0.4 %; Eosinophils % 0.3 %; Hematocrit 34.6 % (36-47); Lymphocytes # 1.7 10^3/uL (0.8-4.8); Lymphocytes % 19.2 %; Mean Corpuscular HGB Conc 32.9 g/dL (30-55); Mean Corpuscular Hemoglobin 30.8 pg (27-33); Mean Corpuscular Volume 93.5 fl (85-98); Mean Platelet Volume 10.8 fL (7.4-10.4); Monocytes # 0.5 10^3/uL (0.2-0.9); Monocytes % 6.1 %; Neutrophils % 71.8 %; Nucleated Red Blood Cells % 0 %; Platelet Count 219 10^3/cmm (157-399); Red Cell Distribution Width 13.2 % (12.1-15.1); White Blood Count 8.92 10^3/uL (3.29-11.43)
[2023-11-02 06:41] LABS: C Reactive Protein 3.8 mg/L (0.0-4.9); Magnesium 2.2 mg/dL (1.7-2.3); Phosphorus 2.6 mg/dL (2.5-4.5)
[2023-11-02 06:45] LABS: Alanine Aminotransferase < 5 U/L (0-33); Albumin Level 3.2 g/dL (3.5-5.2); Alkaline Phosphatase 45 U/L (35-105); Anion Gap 14.3 (5-19); Aspartate Amino Transferase 11 U/L (0-32); Blood Urea Nitrogen 20 mg/dL (8-23); Calcium 8.3 mg/dL (8.5-10.5); Carbon Dioxide 23 mmol/L (22-29); Chloride 106 mmol/L (98-107); Globulin 2.6 g/dL (1.3-4.6); Glomerular Filtration Rate 62.8 mL/min (90-130); Glucose 84 mg/dL (65-115); Osmolality Calculated 292 mOsm/kg (285-295); Potassium 3.3 mmol/L (3.5-5.1); Sodium 140 mmol/L (136-145); Total Bilirubin 0.4 mg/dL (0.15-1.2); Total Protein 5.8 g/dL (6.6-8.7)
[2023-11-02 06:51] LABS: NT Pro B Type Natriuretic Pept 1511 pg/mL (0-125); Procalcitonin 0.04 ng/mL (0-0.5)
[2023-11-02] MEDS: lidocaine 1% 5 ML in potassium chloride premix 100 ML 26.25 ML IV (09:56)
[2023-11-02] MEDS: carbidopa-levodopa 25-100mg Tablet 1 EACH PO ×4 (09:57→22:11)
[2023-11-02] MEDS: polyethylene glycol 3350 Pkt 17 gm PO (09:57)
[2023-11-02] MEDS: duloxetine 60 mg Capsule PO (09:57)
[2023-11-02] MEDS: pantoprazole DR 40 mg Tablet PO (09:57)
[2023-11-02] MEDS: predniSONE 20 mg Tablet 40 MG PO (09:57)
[2023-11-02] MEDS: aspirin 81 mg EC Tablet PO (09:57)
[2023-11-02] MEDS: donepezil 5 MG Tablet 10 MG PO (09:57)
[2023-11-02] MEDS: digoxin 125 mcg Tablet PO (09:57)
[2023-11-02] MEDS: gabapentin 100 mg Capsule PO ×3 (09:57→22:11)
[2023-11-02] MEDS: buPROPion XL (24 HR) 150 mg Tablet PO (09:57)
--- NOTE | 2023-11-02 12:25 | PC.SOCIAL ---
IMM Update pg 2 of IMM updated and reviewed w/ patients family. Copy provided and copy dated, initialed and placed in chart.
--- NOTE | 2023-11-02 13:17 | P.PN_ITS ---
Subjective 2 Subjective: Patient was seen this morning, she has no complaints this morning she is alert to person, not to place, not to time she can answer basic yes or no questions, denies any chest pain, no shortness of breath, she is on a dysphagia level 4 diet, no coughing, no choking, Vitals/I&O/Wt Last Vital Signs Temp 97.8 F 11/02/23 11:53 Pulse 78 11/02/23 11:53 Resp 15 11/02/23 11:53 BP 138/76 11/02/23 11:53 Pulse Ox 95 11/02/23 11:53 O2 Del Method Room Air 11/02/23 11:53 O2 Flow Rate 1 10/27/23 22:00 FiO2 1 10/28/23 00:00 11/01/23 11/02/23 11/02/23 22:59 06:59 14:59 Intake Total 290 / 340 50 / 390 50 / 50 Output Total 1000 / 1000 Balance 290 / 340 -950 / -610 50 / 50 Weight last 48 hrs Weight 68.356 kg Weight 70.307 kg Physical Exam 2 Const: COMMON NORMALS: no acute distress Resp: COMMON NORMALS: normal respiratory effort, No retractions, No use of accessory muscles and clear to auscultation bilaterally AUSCULTATION: clear to auscultation bilaterally Cardio: COMMON NORMALS: regular rate, regular rhythm, S1 normal heart sound present and S2 normal heart sound present RATE: regular rate RHYTHM: r egular rhythm HEART SOUNDS: S1 normal heart sound present and S2 normal heart sound present GI: COMMON NORMALS: Normal to inspection, nondistended, normoactive bowel sounds present and non-tender Extremity: COMMON NORMALS: no pedal edema Urinary Catheter Management: Anthony: Cath Placed During This Visit: yes Reason for Continuing Indwelling Catheter: Assist Healing of Perineal & Sacral Wounds- Incontinent Patients Urinary Catheter Date of Insertion: 10/24/23 Urinary Catheter Time of Insertion: 19:35 Data 11/02/23 05:48 11/02/23 05:48 Micro: Microbiology 10/25/23 17:17 Blood Culture - Final Blood 10/26/23 05:55 Blood Culture - Final Blood 10/26/23 05:55 Blood Culture - Final Blood 10/25/23 17:02 Blood Culture - Final Blood A&P Assessment and plan (1) Aspiration into airway: (2) Aspiration pneumonia due to food (regurgitated): (3) Hypoxic respiratory failure: (4) NSTEMI (non-ST elevated myocardial infarction): (5) Septic shock: (6) Gram-positive bacteremia: Plan Acute hypoxic respiratory failure ? Secondary to aspiration pneumonia, aspiration pneumonitis, aspiration of food bolus into airway -ct chest w/o contrast - CT/CT chest wo con [id number] IMPRESSION: Scattered dense consolidation throughout the lungs concerning for pneumonia. Plan -Food bolus was removed during extubation, ? Continue aggressive pulmonary toilet, ? completed Zosyn 7 days ? Continue DuoNeb, ? De-escalate to prednisone 40mg burst for 5 days ? Monitor respiratory status closely, ? Extubated to nasal cannula, currently on room air, currently on medical floors ?Aspiration precautions ? Speech therapy eval, dysphagia diet aspiration risk, ? modified barium swallow -Impression: 1. Lingular peristalsis reduced. 2. Reduced hypopharyngeal peristalsis with moderate residual which cleared on swallowing. 3. Negative for aspiration or penetration. ? on dysphagia level 4 diet ? Modified barium swallow tomorrow, Gram-positive bacteremia, Staph capitis, seen only on 1 blood cultures on 4, repeat blood cultures negative, ? Stop vancomycin Septic shock, resolved ? Secondary to aspiration pneumonia, ? Currently off Levophed, ? Monitor hemodynamics closely, NSTEMI, ? Type I versus type II, ? Continue aspirin, completed 48 hours of heparin drip on heparin drip ? Cardiac echo Normal LV size with diminished ejection fraction of 45%. Mild diffuse hypokinesia of the ventricle, more so of the septum and the anteroseptal segments. Mild left ventricular hypertrophy. There is no pericardial effusion. There are no intracardiac masses. No similar previous studies are available for comparison ? Serial EKGs, telemetry monitoring Acute encephalopathy, resolving ? Secondary to as above ? At baseline she can sometimes say a few words here and there, but is not alert to place or time, requires assistance of all activities of daily living - CT/CT head wo con* [id number] IMPRESSION: Severe periventricular small-vessel ischemic change. 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 No hemorrhagic transformation. MRI brain shows IMPRESSION: Images degraded by motion. 1. No evidence of restricted diffusion to suggest acute ischemia. 2. Moderate to advanced small vessel changes with moderate to advanced parenchymal volume loss. 3. Chronic infarcts in the RIGHT posterior frontal lobe and LEFT posterior parietal lobe with encephalomalacia and gliosis. This is unchanged from the recent prior studies. 4. Ventriculomegaly likely on the basis of atrophy appears unchanged since the prior MRI. 5. Multiple tiny chronic lacunar infarcts in the cerebellum and LEFT thalamus. UTI, completed Zosyn Baseline ? He is nonambulatory ? Requires assistance of continue daily living, ? In terms of mentation she can say few years here and there according to family numbers ? Over the last 6 months she has had a rapid decline, Her CT of the head did show as above, and has evidence of chronic area of infarction in the right frontoparietal region DVT prophylaxis: Lovenox 40 PUD prophylaxis Protonix DNR/DNI Plan for today complete IV antibiotics, continue speech therapy eval, awaiting placement Attestations 2 Medical Necessity Statement*: Patient requires hospitalization for aspiration pneumonia, encephalopathy, Diagnoses Aspiration into airway T17.908A Aspiration pneumonia due to food (regurgitated) J69.0 Hypoxic respiratory failure J96.91 NSTEMI (non-ST elevated myocardial infarction) I21.4 Septic shock A41.9; R65.21 Gram-positive bacteremia R78.81
[2023-11-02] MEDS: enoxaparin 40 mg/0.4 mL Syringe SUBCUT (17:05)
[2023-11-02] MEDS: acetaminophen 325 mg Tablet 650 MG PO (17:05)
[2023-11-02] MEDS: atorvastatin 40 mg Tablet 20 MG PO (17:05)
[2023-11-02] MEDS: mirtazapine 30 mg Tablet PO (22:13)
[2023-11-02] MEDS: prazosin 5 mg Capsule PO (22:13)
[2023-11-03 04:00] VITALS: BP 99/63; PULSE 86; RESP 15; TEMP 36.9; O2SAT 100
[2023-11-03 06:00] VITALS: PULSE 102
[2023-11-03 06:35] LABS: Basophils % 0.4 %; Eosinophils % 0.2 %; Hematocrit 35.7 % (36-47); Lymphocytes # 1.7 10^3/uL (0.8-4.8); Lymphocytes % 19.4 %; Mean Corpuscular HGB Conc 32.5 g/dL (30-55); Mean Corpuscular Hemoglobin 30.9 pg (27-33); Mean Corpuscular Volume 94.9 fl (85-98); Mean Platelet Volume 10.8 fL (7.4-10.4); Monocytes # 0.4 10^3/uL (0.2-0.9); Neutrophils # 6.25 10^3/uL (1.8-7.7); Nucleated Red Blood Cells % 0 %; Platelet Count 206 10^3/cmm (157-399); Red Blood Count 3.76 10^6/uL (3.85-5.65); Red Cell Distribution Width 13.6 % (12.1-15.1); White Blood Count 8.56 10^3/uL (3.29-11.43)
[2023-11-03 06:57] LABS: Magnesium 2.3 mg/dL (1.7-2.3)
[2023-11-03 06:58] LABS: Alanine Aminotransferase < 5 U/L (0-33); Albumin Level 3.3 g/dL (3.5-5.2); Alkaline Phosphatase 45 U/L (35-105); Anion Gap 14.9 (5-19); Aspartate Amino Transferase 9 U/L (0-32); Blood Urea Nitrogen 21 mg/dL (8-23); Calcium 8.3 mg/dL (8.5-10.5); Carbon Dioxide 21 mmol/L (22-29); Chloride 108 mmol/L (98-107); Globulin 2.6 g/dL (1.3-4.6); Glomerular Filtration Rate 62.8 mL/min (90-130); Glucose 88 mg/dL (65-115); Osmolality Calculated 292 mOsm/kg (285-295); Potassium 3.9 mmol/L (3.5-5.1); Sodium 140 mmol/L (136-145); Total Bilirubin 0.3 mg/dL (0.15-1.2); Total Protein 5.9 g/dL (6.6-8.7)
[2023-11-03] MEDS: levothyroxine 125 mcg Tablet PO (06:59)
[2023-11-03 07:01] LABS: NT Pro B Type Natriuretic Pept 908 pg/mL (0-125)
[2023-11-03 07:03] LABS: Procalcitonin 0.04 ng/mL (0-0.5)
[2023-11-03 07:27] VITALS: BP 101/71; PULSE 108; RESP 17; TEMP 36.7; O2SAT 97
[2023-11-03 08:21] VITALS: PULSE 108
[2023-11-03] MEDS: buPROPion XL (24 HR) 150 mg Tablet PO (08:21)
[2023-11-03] MEDS: polyethylene glycol 3350 Pkt 17 gm PO (08:21)
[2023-11-03] MEDS: carbidopa-levodopa 25-100mg Tablet 1 EACH PO ×2 (08:21→13:54)
[2023-11-03] MEDS: pantoprazole DR 40 mg Tablet PO (08:21)
[2023-11-03] MEDS: digoxin 125 mcg Tablet PO (08:21)
[2023-11-03] MEDS: gabapentin 100 mg Capsule PO ×2 (08:21→13:54)
[2023-11-03] MEDS: aspirin 81 mg EC Tablet PO (08:21)
[2023-11-03] MEDS: duloxetine 60 mg Capsule PO (08:21)
[2023-11-03] MEDS: predniSONE 20 mg Tablet 40 MG PO (08:22)
[2023-11-03] MEDS: donepezil 5 MG Tablet 10 MG PO (08:22)
[2023-11-03 11:17] VITALS: BP 102/70; PULSE 90; RESP 16; TEMP 36.6; O2SAT 96
--- NOTE | 2023-11-03 12:21 | P.DS_ITS ---
Discharge Providers Date of Admission: 10/24/23 21:12 Date of Discharge: November 03, 2023 Attending Provider at Admission: Mickie Crabtree MD Attending Provider at Discharge: Josse Key MD Primary Care Provider: Chyna Mccray MD Diagnoses at Discharge Discharge Diagnosis (1) Aspiration into airway: Status: Acute (2) Aspiration pneumonia due to food (regurgitated): Status: Acute (3) Hypoxic respiratory failure: Status: Acute (4) NSTEMI (non-ST elevated myocardial infarction): Status: Acute (5) Septic shock: Status: Acute (6) Gram-positive bacteremia: Status: Acute Reason for Visit Reason for Visit: sob Hospital Course Hospital Course Franchesca Huerta (Sandy) is a 63 year old female currently a senior living resident, history of multiple strokes in the past, most recently in July 2023. Patient has baseline left-sided weakness and per son's history may have some baseline dysphagia. She was brought into the emergency room today due to acute respiratory distress with started shortly after patient was eating. While she was in route via EMS her O2 sats was noted to be 75%. Patient was unresponsive upon being brought here. She was intubated upon ER arrival due to quick respiratory decompensation. During intubation she was found to have a large food bolus obstructing her airway. Patient was intubated, and obstructing piece of ham was removed and respiratory status improved thereafter. Chest x-r ay taken postintubation shows ill-defined opacities throughout the right lung and the left basilar lung concerning for aspiration. Unable to get any further history at this time. Patient had a prolonged hospitalization for acute hypoxic respiratory failure secondary to aspiration pneumonia, was intubated in the ER removal fluid bolus, monitored in the ICU, she was made DNR/DNI by family, with attempt with extubation, tolerated extubation well, managed with broad-spectrum antibiotic therapy moved to general medical floors remains on room air, completed antibiotic therapies as inpatient, will be discharged to halfway facility on hospice For aspiration risk, she has high aspiration risk, had a modified barium swallow, monitored on a dysphagia level 4 diet, was able to speak to patient's son at bedside, despite her being on dysphagia level 4 diet she continues to have a high aspiration risk she is DNR/DNI she is on hospice, will have to continue to monitor her at the senior living monitoring her feedings, my other concern is that she continues to have poor appetite, I would encourage p.o. intake p.o. feedings, she is DNR/DNI she is on hospice, but certainly PEG tube could be a consideration for nutrition as outpatient but this will be a shared decision making between patient and her family and general surgery based on clinical progress, Septic shock secondary aspiration pneumonia resolved, NSTEMI, type I versus type II, not completed 48 hours of heparin drip, echo shows EF of 45% with mild diffuse hypokinesis of the left ventricle more of the septum and anteroseptal segments, patient's family have elected for noninvasive interventions, she is DNR/DNI, on hospice, for now we will medically manage, For acute on chronic encephalopathy, at baseline patient is nonambulatory, requires assistance of activities of daily living, her mentation has declined in the last 6 months, MRI of the brain does show chronic infarcts in the right posterior frontal lobe, and left posterior parietal lobe with encephalomalacia and gliosis, family was unaware of stroke on the right posterior frontal lobe potentially this could be an etiology behind her mental status changes in the last 6 months. They are aware of the left posterior parietal lobe as she has a flexion contracture of the left upper extremity, decreased movement to left lower extremity. Certainly as 2 vascular territories and are involved, she also has multiple tiny chronic lacunar infarcts in the cerebellum and the left thalamus, these could be embolic strokes from atrial fibrillation although she has had no A-fib events during hospitalization, will have her follow-up with neurology and cardiology as outpatient. But with the mental status changes, or behavior changes certainly the right posterior frontal lobe infarct is in explanation. Nonetheless she is DNR/DNI, on hospice, continue to monitor mentation closely, will have her follow-up with Physical Exam Const: COMMON NORMALS: no acute distress and patient oriented x3 Resp: COMMON NORMALS: normal respiratory effort, No retractions, No use of accessory muscles and clear to auscultation bilaterally AUSCULTATION: clear to auscultation bilaterally Cardio: COMMON NORMALS: regular rate, regular rhythm, S1 normal heart sound present and S2 normal heart sound present RATE: regular rate RHYTHM: regular rhythm HEART SOUNDS: S1 normal heart sound present and S2 normal heart sound present GI: COMMON NORMALS: Normal to inspection, nondistended, normoactive bowel sounds present and non-tender Extremity: COMMON NORMALS: no pedal edema Neuro: COMMON NORMALS: patient oriented x3 Psych: COMMON NORMALS: mental status grossly normal Urinary Catheter Management: Anthony: Cath Placed During This Visit: yes Reason for Continuing Indwelling Catheter: Other Urinary Catheter Date of Insertion: 10/24/23 Urinary Catheter Time of Insertion: 19:35 Discharge Data Studies Completed and Pending Completed Studies During Hospitalization Category Date Time Status CT chest wo con [id number] Stat Cat Scan 10/25/23 08:[address] head wo con* [id number] Routine Cat Scan 10/25/23 00:07 Completed CXRP [XR chest 1V portable [id number]] AM LABS Exams 10/25/23 06:00 Completed CXRP [XR chest 1V portable [id number]] Routine Exams 10/25/23 14:27 Completed FL barium swallow modifd 59919 Routine Exams 11/01/23 08:00 Completed XR chest 1V portable [id number] Routine Exams 10/26/23 07:00 Completed XR chest 1V portable [id number] Routine Exams 10/27/23 07:00 Completed XR chest 1V portable [id number] Stat Exams 10/24/23 19:09 Completed Blood Cultures ([facility]) Routine Lab 10/25/23 17:02 Completed Blood Cultures ([facility]) Routine Lab 10/25/23 17:17 Completed Blood Cultures ([facility]) Routine Lab 10/26/23 05:55 Completed Blood Cultures ([facility]) Routine Lab 10/26/23 05:55 Completed Blood Cultures ([facility]) Routine Lab 10/28/23 13:35 Completed Blood Cultures ([facility]) Routine Lab 10/28/23 13:41 Completed MR head wo con* [id number] Stat MRI 11/01/23 06:30 Completed CV. echo complete* [id number] Routine Ultrasound 10/25/23 00:07 Completed Pending at discharge Category Date Time Status Complete Blood Count w/Auto AM LABS Lab 11/04/23 04:00 Ordered Comprehensive Metabolic Panel AM LABS Lab 11/04/23 04:00 Ordered Radiology Impressions Head CT 10/25/23 00:07 IMPRESSION: Severe periventricular small-vessel ischemic change. 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 No hemorrhagic transformation. Chest CT 10/25/23 08:42 IMPRESSION: Scattered dense consolidation throughout the lungs concerning for pneumonia. COMMENTS: In the absence of a history or active diagnosis of lung cancer, it is recommended that this patient with emphysema be evaluated for enrollment in a low dose CT lung cancer screening program. Chest X-Ray 10/27/23 07:00 IMPRESSION: No acute findings. Laboratory Results WBC 8.56 10^3/uL (3.29-11.43) 11/03/23 06:27 RBC 3.76 10^6/uL (3.85-5.65) L 11/03/23 06:27 Hgb 11.60 g/dL (11.27-16.99) 11/03/23 06:27 Hct 35.7 % (36-47) L 11/03/23 06:27 MCV 94.9 fl (85-98) 11/03/23 06:27 MCH 30.9 pg (27-33) 11/03/23 06: MCHC 32.5 g/dL (30-55) 11/03/23 06:27 RDW 13.6 % (12.1-15.1) 11/03/23 06:27 Plt Count 206 10^3/cmm (157-399) 11/03/23 06:27 MPV 10.8 fL (7.4-10.4) H 11/03/23 06:27 Neut % (Auto) 73.0 % 11/03/23 06:27 Lymph % (Auto) 19.4 % 11/03/23 06:27 Banks % (Auto) 5.0 % 11/03/23 06:27 Eos % (Auto) 0.2 % 11/03/23 06:27 Baso % (Auto) 0.4 % 11/03/23 06:27 Neut # (Auto) 6.25 10^3/uL (1.8-7.7) 11/03/23 06:27 Lymph # (Auto) 1.7 10^3/uL (0.8-4.8) 11/03/23 06:27 Banks # (Auto) 0.4 10^3/uL (0.2-0.9) 11/03/23 06:27 Eos # (Auto) 0.0 10^3/uL (0.0-0.8) 11/03/23 06:27 Baso # (Auto) 0.0 10^3/uL (0.0-0.1) 11/03/23 06:27 Nucleated RBC % (auto) 0 % 11/03/23 06:27 Nucleated RBCs # 0.0 /100WBC 11/03/23 06:27 PT 14.10 SECONDS (12.1-14.9) 10/28/23 04:00 INR 1.05 (0.8-1.2) 10/28/23 04:00 APTT 28.4 SECONDS (23.9-36.7) D 10/28/23 13:41 Specimen Type Arterial 10/27/23 04:42 Sample Site Radial, right 10/27/23 04:42 ABG pH 7.46 (7.35-7.45) H 10/27/23 04:42 ABG pCO2 26.4 mmHg (35-45) L 10/27/23 04:42 ABG pO2 71.5 mmHg (80.0-100.0) L 10/27/23 04:42 ABG PO2/FiO2 Ratio 0 10/27/23 04:42 ABG HCO3 18.8 mmol/L (22-26) L 10/27/23 04:42 ABG O2 Saturation 96.0 10/24/23 19:32 ABG Base Excess -3.5 mmol/L (-2.0-2.0) L 10/27/23 04:42 Altaf Test Pos 10/27/23 04:42 A-a O2 Gradient 36.1 mmHg (5-10) H 10/24/23 19:32 Hematocrit 42.6 % (37-47) 10/27/23 04:42 Hgb O2 Saturation 95.4 % (95-100) 10/24/23 19:32 Carboxyhemoglobin 0.3 %THgb (0.4-20.1) L 10/24/23 19:32 Methemoglobin 0.4 % (0.4-1.5) 10/24/23 19:32 Total Hemoglobin 13.0 g/dL (12-16) 10/24/23 19:32 Sodium 143.0 mmol/L (131-143) 10/24/23 19:32 Potassium 3.3 mmol/L (3.5-5.0) L 10/24/23 19:32 Glucose 242.0 mg/dL (70-115) H 10/24/23 19:32 Ionized Calcium 1.2 mmol/L (1.1-1.4) 10/24/23 19:32 O2 Delivery Device Vent 10/27/23 04:42 FiO2 30.0 % 10/27/23 04:42 Tidal Volume 0.45 10/27/23 04:42 PEEP 6.0 cmH20 10/27/23 04:42 Director Non Profit ID Zachary 10/27/23 04:42 Sodium 140 mmol/L (136-145) 11/03/23 06:27 Potassium 3.9 mmol/L (3.5-5.1) 11/03/23 06:27 Chloride 108 mmol/L (98-107) H 11/03/23 06:27 Carbon Dioxide 21 mmol/L (22-29) L 11/03/23 06:27 Anion Gap 14.9 (5-19) 11/03/23 06:27 BUN 21 mg/dL (8-23) 11/03/23 06:27 Creatinine 0.9 mg/dL (0.5-0.9) 11/03/23 06:27 GFR Calculation 62.8 mL/min (90-130) L 11/03/23 06:27 Glucose 88 mg/dL (65-115) 11/03/23 06:27 Calculated Osmolality 292 mOsm/kg (285-295) 11/03/23 06:27 Lactic Acid 4.6 mmol/L (0.5-2.2) H* 10/24/23 19:54 Lactic Acid (Sepsis) 2.4 mmol/L (0.5-2.2) H 10/24/23 22:56 Lactate 1.5 mmol/L (0.5-2.2) 10/27/23 03:18 Calcium 8.3 mg/dL (8.5-10.5) L 11/03/23 06:27 Phosphorus 2.0 mg/dL (2.5-4.5) L 11/03/23 06:27 Magnesium 2.3 mg/dL (1.7-2.3) 11/03/23 06:27 Total Bilirubin 0.3 mg/dL (0.15-1.2) 11/03/23 06:27 AST 9 U/L (0-32) 11/03/23 06:27 ALT < 5 U/L (0-33) 11/03/23 06:27 Alkaline Phosphatase 45 U/L (35-105) 11/03/23 06:27 Creatine Kinase 205 U/L (26-192) H 10/27/23 03:18 Troponin T Baseline 64 ng/L (0-10) H 10/24/23 19:54 Troponin T 120 Minute 102.6 ng/L (0-10) H 10/24/23 22:56 Delta Troponin T 38.6 ABS# (0-10) H* 10/24/23 22:56 Troponin T Hi Sens 6Hr 137.5 ng/L (0-10) H 10/25/23 17:02 Troponin T Hi Sens 6Hr Delta 73.5 ng/L (0-12) H* 10/25/23 17:02 C-Reactive Protein 3.0 mg/L (0.0-4.9) 11/03/23 06:27 NT-Pro-B Natriuret Pep 908 pg/mL (0-125) H 11/03/23 06:27 Total Protein 5.9 g/dL (6.6-8.7) L 11/03/23 06:27 Albumin 3.3 g/dL (3.5-5.2) L 11/03/23 06:27 Globulin 2.6 g/dL (1.3-4.6) 11/03/23 06:27 Procalcitonin 0.04 ng/mL (0-0.5) 11/03/23 06:27 Urine Color Yellow (Yellow) 10/24/23 19:43 Urine Appearance Hazy (CLEAR) A 10/24/23 19:43 Urine pH 6 (5-7) 10/24/23 19:43 Ur Specific [place] 1.020 (1.005-1.030) 10/24/23 19:43 Urine Protein 1+ (Negative) H 10/24/23 19:43 Urine Glucose (UA) 1+ (Normal) H 10/24/23 19:43 Urine Ketones 1+ (Negative) H 10/24/23 19:43 Urine Blood 2+ (Negative) H 10/24/23 19:43 Urine Nitrate Positive (Negative) H 10/24/23 19:43 Urine Bilirubin Neg (Negative) 10/24/23 19:43 Urine Urobilinogen Neg mg/dL (Negative) 10/24/23 19:43 Ur Leukocyte Esterase Negative (Negative) 10/24/23 19:43 Urine RBC 10-15 /hpf (0-2) H 10/24/23 19:43 Urine WBC 5-10 /hpf (0-5) H 10/24/23 19:43 Ur Squamous Epith Cells None /hpf (0-5) 10/24/23 19:43 Ur Transition Epith Cell 5-10 /hpf 10/24/23 19:43 Amorphous Sediment 1+ /hpf 10/24/23 19:43 Urine Bacteria 3+ /hpf (NONE) H 10/24/23 19:43 Hyaline Casts 0-4 /lpf H 10/24/23 19:43 Urine Mucus 2+ /hpf 10/24/23 19:43 Digoxin 0.3 ng/mL (0.6-1.2) L 10/24/23 19:54 Influenza Type A Ag negative (Negative) 10/25/23 09:20 Influenza Type B Ag negative (Negative) 10/25/23 09:20 SARS-CoV-2 Ag (Rapid) negative (Negative) 10/25/23 09:20 Vitals Last Vital Signs Temp 97.9 F 11/03/23 11:17 Pulse 90 11/03/23 11:17 Resp 16 11/03/23 11:17 BP 102/70 11/03/23 11:17 Pulse Ox 96 11/03/23 11:17 O2 Del Method Room Air 11/03/23 11:17 O2 Flow Rate 1 10/27/23 22:00 FiO2 1 10/28/23 00:00 Discharge Plan Discharge Patient Disposition: Hospice - Medical Facility Condition: Stable Prescriptions: Continued aspirin 81 mg tablet,delayed release (DR/EC) 81 mg PO QAM digoxin 125 mcg (0.125 mg) tablet 125 mcg PO DAILY polyethylene glycol 3350 [Miralax] 17 gram powder in packet 17 g PO DAILY duloxetine 60 mg capsule,delayed release(DR/EC) 60 mg PO DAILY bupropion HCl 150 mg tablet extended release 24 hr 150 mg PO DAILY megestrol 400 mg/10 mL (40 mg/mL) suspension 40 mg PO BID gabapentin 100 mg capsule 100 mg PO TID carbidopa-levodopa 25-100 mg tablet 1 tab PO QID prazosin 5 mg capsule 5 mg PO QPM mirtazapine 30 mg tablet 30 mg PO BEDTIME (DME) bath chair See Rx Instructions .Route .MEDSUPPLY Qty: 1 0RF Rx Instructions: use while bathing. (DME) cane Device See Rx Instructions .Route Qty: 1 0RF Rx Instructions: four pronged cane famotidine 40 mg tablet 40 mg PO BID Qty: 180 0RF (DME) walker See Rx Instructions .Route .MEDSUPPLY Qty: 1 0RF Rx Instructions: As directed potassium gluconate 595 mg (99 mg) Tablet 595 mg PO QAM oxybutynin chloride 10 mg tablet extended release 24hr 10 mg PO QAM donepezil 10 mg tablet 10 mg PO QPM diclofenac sodium 75 mg tablet,delayed release (DR/EC) 75 mg PO BID PRN (Reason: Pain) levothyroxine 125 mcg tablet 125 mcg PO QAM Biofreeze 0.2-3.5 % Gel 1 applic TOPICAL DAILY PRN (Reason: Pain) Rx Instructions: rub in gently and completely pravastatin 20 mg tablet 20 mg PO QPM Discharge Orders: Discharge Order (Routine); Ordered 11/03/23 Ordered By: Josse Key Referrals: [facility] [Outside] [facility] [Outside] Chyna Mccray MD [Primary Care Provider] - Discharge Diet: Advance as tolerated Discharge Activity: Resume usual activity Patient Instructions: Opioid Safety Activity Restrictions/Additional Instructions: -Dysphagia level 4 diet, extremely thick pur?ed, aspiration precautions -Please monitor feeds closely, ? I recommend monitoring for feeds every 4 hours,, ? Monitoring hydration status every 4 hours, ? Monitor for UTIs and aspiration pneumonia, ? Discharge Attestations Time Spent in Discharge Care*: greater than 30 min Quality Metrics Clinical Quality Measures [ No reported AMI, CVA or VTE this stay] Coding Level of Care Code Acute Code for Chg Fwd Diagnoses Aspiration into airway T17.908A Aspiration pneumonia due to food (regurgitated) J69.0 Hypoxic respiratory failure J96.91 NSTEMI (non-ST elevated myocardial infarction) I21.4 Septic shock A41.9; R65.21 Gram-positive bacteremia R78.81
--- NOTE | 2023-11-03 13:29 | PC.NURSE ---
This nurse called report to VALENCIA Carmona at [facility] at [phone].
[2023-11-03 15:27] VITALS: BP 191/77; PULSE 99; RESP 16; TEMP 37.2; O2SAT 96
== END 2023-11-03 16:15 | disposition hospice, inpatient (51) | DRG 871 ==
LOC: ER 21:24 → ICU 21:32 → MEDSURG 10-28 14:38
PROVIDERS: Admitting Provider Student in an Organized Health Care Education/Training Program; Emergency Provider Emergency Medicine; PCP Family Medicine; Visit Provider Family Medicine
DX: A41.1 Sepsis due to other specified staphylococcus (principal); I21.4 Non-ST elevation (NSTEMI) myocardial infarction; J69.0 Pneumonitis due to inhalation of food and vomit; J96.01 Acute respiratory failure with hypoxia; R65.21 Severe sepsis with septic shock; I69.354 Hemiplegia and hemiparesis following cerebral infarction affecting left non-dominant side; G93.40 Encephalopathy, unspecified; N39.0 Urinary tract infection, site not specified; R51.9 Headache, unspecified; E03.9 Hypothyroidism, unspecified; N18.30 Chronic kidney disease, stage 3 unspecified; Z87.891 Personal history of nicotine dependence; I69.391 Dysphagia following cerebral infarction; R13.10 Dysphagia, unspecified; Z74.01 Bed confinement status; Z66 Do not resuscitate; M24.59 Contracture, other specified joint
CPT/HCPCS: 31500; 36415; 36573; 36592; 36600; 51702; 70450; 70551; 71045; 71250; 74230; 80048; 80051; 80053; 80162; 81001; 82330; 82550; 82803; 82805; 83605; 83735; 83880; 84100; 84145; 84484; 85025; 85610; 85730; 86140; 87040; 87070; 87077; 87086; 87186; 87205; 87426; 87804; 92507; 92523; 92526; 92610; 92611; 93005; 93306; 94002; 94003; 94799; 96365; 96367; 96372; 96375; 97161; 97165; 99291; A4570; J0456; J1100; J1644; J1650; J1940; J2543; J2704; J3010; J3370; J3480; J3490; J7030; J7050; J7512; Q3014

== ENCOUNTER → 2024-01-06 10:44 | Outpatient (BNVA) | payer MEDICARE, MEDICAID, SELFPAY | PROVIDERS: PCP Family Medicine; Visit Provider Specialist | DX: R41.3 Other amnesia (principal); F01.B0 Vascular dementia, moderate, without behavioral disturbance, psychotic disturbance, mood disturbance, and anxiety; G43.711 Chronic migraine without aura, intractable, with status migrainosus; F32.4 Major depressive disorder, single episode, in partial remission | CPT/HCPCS: 99215 ==